=== PATIENT | male | born 1955 | race Caucasian/White ===

== ENCOUNTER 2018-02-28 21:14 | Emergency (ER) | payer MEDICAID, SELFPAY ==
[2018-02-28 21:15] VITALS: BP 161/111; PULSE 128; RESP 14; TEMP 37.4; O2SAT 91; BMI 30.7
[2018-02-28 21:57] VITALS: PULSE 78; RESP 18; O2SAT 98
--- NOTE | 2018-02-28 22:52 | ED.VIS.GEN ---
History of Present Illness Chief Complaint: Upper Extremity Injury Informant: Patient Onset: Days - 3 Context: Gradual Onset Timing: Continuous Current Severity: Moderate Maximum Severity: Moderate Narrative: Patient states he had a hangnail on his left middle finger that he picked off, and this initially caused some bleeding and then started getting red and painful and swollen, eventually turned into a swollen area that he squeezed and drained some pus but it continues to be red, swollen, painful. Right-hand dominant. Past Medical History - Allergies and Home Meds Allergies/Adverse Reactions: Allergies No Known Allergies Allergy (Verified 02/28/18 21:58) Primary Care Physician: Salvatore Doctor,Out of [NON-STAFF] - Past Medical History: None Lives: Spouse/ Significant Other Smoking Status: Never smoker Review of Systems General: Denies: Chills, Fever Musculoskeletal: Reports: Extremity Pain - left long finger Skin: Reports: Wounds Physical Exam Vital Signs/Narrative: Vital Signs Temp Pulse Resp BP Pulse Ox 02/28/18 21:57 78 18 98 02/28/18 21:15 99.3 F H 128 H 14 161/111 H 91 Inital Vital Signs reviewed: Yes General: Well nourished, Well developed Head: Normocephalic, Atraumatic Extremities: Tenderness - Erythematous, warm, swollen, tender left long finger around the base of nail fold both ulnarly and radially. Appears fairly symmetric. Small area where he appears to have peeled off a piece of skin at the ulnar aspect, where the patient states the pus came from and the infection started. Limited flexion of the DIP joint secondary to pain and swelling. No significant tenderness or distention of the finger pad at the volar aspect. Skin: - - Erythema left long finger at nail fold. Neurological: Alert, Oriented x3, Cranial nerves II-XII grossly intact, Normal Strength, Normal Sensation, Normal Gait Psychological: Normal affect Diagnostic/Tx/Re-eval - Medical Decision Making Although patient had a low-grade temperature and was tachycardic in triage, he is very well-appearing and does not appear septic at all. He appears to have a very localized paronychia that is progressed to the radial aspect of the fingernail. He was amenable to incision and drainage since there was no spontaneous discharge able to be expressed. Although there is an abscess cavity, and I opened it on both sides, no purulent discharge was able to be expressed. Only bleeding. I soaked him in chlorhexidine and sterile saline for 10 minutes, followed by wrapping in bacitracin and a bulky dressing, and he is placed on Duricef, advised to use warm soapy soaks at least twice a day for the next couple days, following up or returning if worsening or not improving. He is comfortable with that plan. Procedures Procedure(s): Digital block left long finger --total of 9 cc plain 1% lidocaine used with dorsal approach after isopropyl alcohol prep. Good anesthesia obtained. I&D paronychia left long finger --prepped with Betadine and incised with the tip of a #11 blade at both the ulnar, followed by the radial aspect. Abscess cavity along the dorsum of the finger posterior/proximal to the nail fold probed, but no purulent discharge. ED Disposition - Plan for ED Patient: Disposition: Home or Assisted Living Chief Complaint: Upper Extremity Injury Diagnosis: Paronychia of finger of left hand Instructions: ED Fingernail Infec Prescriptions: Cefadroxil [Duricef] 500 mg PO BID #14 cap Referrals: [facility] Doctor,Out of [NON-STAFF] - 3-5 Days if not improving
[2018-02-28 23:43] VITALS: BP 141/78; PULSE 67; RESP 18; O2SAT 98
[2018-02-28] MEDS: Cefadroxil 500 MG CAPSULE PO (23:54)
== END 2018-02-28 23:56 | disposition home or self-care (01) ==
PROVIDERS: Emergency Provider Emergency Medicine
DX: L03.012 Cellulitis of left finger (principal)
CPT/HCPCS: 10060; 99283

== ENCOUNTER → 2022-07-12 | Outpatient (CLI) | payer MEDICARE, SELFPAY ==
[2022-07-12 09:17] LABS: Hematocrit 44.6 % (40-54); Hemoglobin 15.6 g/dL (13.0-16.5); Mean Corpuscular Hgb 31.5 pg (27.0-32.0); Mean Corpuscular Volume 89.9 fL (80-94); Mean Platelet Vol. 10.4 fl (6.2-12.0); Platelet Count 241 K/mm3 (150-450); RBC Distribution Width CV 11.8 % (11.6-14.6); RBC Distribution Width SD 38.1 fl (35.1-43.9); Red Blood Count 4.96 M/mm3 (4.6-6.2); White Blood Count 9.5 K/mm3 (4.4-11.0)
[2022-07-12 09:43] LABS: Hemoglobin A1c 11.7 % (3.8-5.6)
[2022-07-12 09:51] LABS: ALB/GLOB Ratio 0.8 RATIO (0.9-2.4); AST(SGOT) 37 U/L (15-37); Alanine Aminotransfer ALT/SGPT 35 U/L (16-61); Albumin, Serum 3.3 g/dL (3.2-5.0); Alkaline Phosphatase 109 U/L (45-117); Anion Gap 9 (5-15); BUN 16 mg/dL (7-18); BUN/Creat Ratio 15.4 RATIO (10-20); Calcium,Total 8.6 mg/dL (8.5-10.1); Chloride 98 mmol/L (98-107); Cholesterol 178 mg/dL (200); Creatinine, Serum 1.04 mg/dL (0.70-1.30); EST Glomerular Filtration Rate 76 mL/min (>60); Est Glom Filt Rate - Afr Amer 92 mL/min (>60); Glucose 384 mg/dL (74-106); High Density Lipoprotein 39 mg/dL; PSA,Total - Annual Screen 6.34 ng/mL (0.00-4.00); Potassium 4.1 mmol/L (3.5-5.1); Protein, Total 7.3 g/dL (6.4-8.2); Sodium Level 133 mmol/L (136-145); Triglycerides 205 mg/dL; Very Low Density Lipoprotein 41 mg/dL (5-40)
== END | disposition home or self-care (01) ==
LOC: LAB 08:59
DX: Z00.01 Encounter for general adult medical examination with abnormal findings (principal); Z12.5 Encounter for screening for malignant neoplasm of prostate; Z83.3 Family history of diabetes mellitus
CPT/HCPCS: 36415; 80053; 80061; 83036; 84153; 85027; G0103

== ENCOUNTER 2022-08-04 09:18 | Outpatient (RCR) | payer MEDICARE, SELFPAY | END 2022-08-09 23:59 | LOC: DC 09:18 | PROVIDERS: Referring Provider Nurse Practitioner Family; Visit Provider Nurse Practitioner Family | DX: E11.9 Type 2 diabetes mellitus without complications (principal) | CPT/HCPCS: 97802 ==

== ENCOUNTER → 2022-08-09 | Outpatient (CLI) | payer MEDICARE, SELFPAY ==
--- NOTE | 2022-08-09 11:10 | US_ITS ---
STUDY: SUPERFICIAL ULTRASOUND - RIGHT THIGH. REASON FOR EXAM: Male, 66 years old. Mass of right thigh TECHNIQUE: A superficial ultrasound was performed with real-time and static marroquin-scale imaging. COMPARISON: None. FINDINGS: The palpable abnormality corresponds to 9.4 cm x 6.7 cm x 4.9 cm isoechoic mass. Biopsy recommended. US/Ext Non Vasc Limited/Soft Tiss IMPRESSION: 9.4 cm x 6.7 cm x 4.9 cm hypoechoic mass corresponding to the palpable abnormality. Biopsy is recommended. Electronically Signed: Martin Bello MD at 10:59 EST ,
== END | disposition home or self-care (01) ==
LOC: US 11:08
PROVIDERS: Referring Provider Surgery; Visit Provider Surgery
DX: R22.41 Localized swelling, mass and lump, right lower limb (principal)
CPT/HCPCS: 76882

== ENCOUNTER 2022-09-06 09:26 | Outpatient (RCR) | payer MEDICARE, SELFPAY | END 2022-09-06 23:59 | LOC: DC 09:26 | PROVIDERS: Referring Provider Nurse Practitioner Family; Visit Provider Nurse Practitioner Family | DX: E11.9 Type 2 diabetes mellitus without complications (principal) | CPT/HCPCS: 97803 ==

== ENCOUNTER → 2022-09-15 | Outpatient (CLI) | payer MEDICARE, SELFPAY ==
--- NOTE | 2022-09-15 | PROSBIL_PTH ---
PATIENT: LOVE ROBLES LOC: [facility] U#:[id number] AGE/SX: 66/M ROOM: RE09/15/[address]: Dr. Good Ness MD : 1955 BED: DIS: 09/15/2022 SPEC #: [id number] RECD: 09/15/22 16:56 STATUS: KIRBY FERNANDEZ #: [id number] BYRON: 09/15/22 00:[address]: Good Ness DEPT: SURGICAL PATHOLOGY RECD BY: Erasto Loya ENTERED: 09/16/22 09:41 SP TYPE: PROST BX OT DR: [facility]da [facility] Tissues: A - PROSTATE RIGHT B - PROSTATE RIGHT C - PROSTATE RIGHT D - PROSTATE LEFT E - PROSTATE LEFT F - PROSTATE LEFT Procedures: PROSTATE BX HEADER OPERATION: Prostate biopsy PRE-OP DIAGNOSIS: Elevated PSA TISSUE SUBMITTED: A - Right apex, B - Right mid, C - Right base, D - Left apex, E - Left mid, F - Left base MICROSCOPIC DIAGNOSIS A. Right prostate, apex, core biopsy: Prostatic tissue, negative for malignancy. Focal mild chronic inflammation. B. Right prostate, mid, core biopsy: Prostatic tissue, negative for malignancy. C. Right prostate, base, core biopsy: Prostatic tissue, negative for malignancy. D. Left prostate, apex, core biopsy: Prostatic adenocarcinoma. Bertram grade: 3+3=6 Number of cores involved: 2/2 Proportion of tissue involved: 40% Perineural invasion: Not identified. Greatest tumor length: 0.4 cm E. Left prostate, mid, core biopsy: Focal high-grade prostatic intraepithelial neoplasia (HGPIN). F. Left prostate, base, core biopsy: Prostatic tissue, negative for malignancy. SJ:mary 09/19/2022 MICROSCOPIC DESCRIPTION Slides are reviewed. GROSS DESCRIPTION A - Received is one container designated prostate, right apex. The specimen consists of two elongated fragments of light dale-white soft tissue measuring 1.4 and 1.7 cm in length and 0.1 cm in diameter. The specimen is totally submitted in one cassette. B - Received is one container designated prostate, right mid. The specimen consists of two elongated fragments of light dale-white soft tissue measuring 0.5 and 1.7 cm in length and 0.1 cm in diameter. The specimen is totally submitted in one cassette. C - Received is one container designated prostate, right base. The specimen consists of two elongated fragments of light dale-white soft tissue each measuring 1.5 cm in length and 0.1 cm in diameter. The specimen is totally submitted in one cassette. D - Received is one container designated prostate, left apex. The specimen consists of two elongated fragments of light dale-white soft tissue measuring 1.4 and 1.6 cm in length and 0.1 cm in diameter. The specimen is totally submitted in one cassette. E - Received is one container designated prostate, left mid. The specimen consists of two elongated fragments of light dale-white soft tissue measuring 1.4 and 2.1 cm in length and 0.1 cm in diameter. The specimen is totally submitted in one cassette. F - Received is one container designated prostate, left base. The specimen consists of two elongated fragments of light dale-white soft tissue each measuring 1.2 cm in length and 0.1 cm in diameter. The specimen is totally submitted in one cassette. / SJ:rg 09/16/2022 TC:0 CPT: G0146
== END | disposition home or self-care (01) ==
PROVIDERS: Visit Provider Urology
DX: R97.20 Elevated prostate specific antigen [PSA] (principal)
CPT/HCPCS: 88305; G0416

== ENCOUNTER → 2023-01-23 | Outpatient (CLI) | payer MEDICARE, SELFPAY ==
[2023-01-23 11:24] LABS: PSA,Total- Diagnostic 7.81 ng/mL (0.0-4.0)
== END | disposition home or self-care (01) ==
LOC: LAB 10:19
PROVIDERS: Referring Provider Urology; Visit Provider Urology
DX: C61 Malignant neoplasm of prostate (principal)
CPT/HCPCS: 36415; 84153

== ENCOUNTER 2023-02-06 17:30 | Outpatient (RCR) | payer SELFPAY | END 2023-02-06 23:59 | LOC: NS 17:30 | PROVIDERS: Referring Provider Nurse Practitioner Family; Visit Provider Nurse Practitioner Family | DX: Z71.3 Dietary counseling and surveillance (principal); E11.9 Type 2 diabetes mellitus without complications ==

== ENCOUNTER → 2023-03-14 | Outpatient (CLI) | payer MEDICARE, SELFPAY | END | disposition home or self-care (01) | PROVIDERS: Referring Provider Podiatrist Foot & Ankle Surgery; Visit Provider Podiatrist Foot & Ankle Surgery | DX: L02.611 Cutaneous abscess of right foot (principal) | CPT/HCPCS: 87070; 87075; 87077; 87186; 87205 ==

== ENCOUNTER 2023-04-04 12:47 | Day surgery (SDC) | payer MEDICARE, SELFPAY ==
[2023-04-04 13:01] VITALS: BP 126/88; PULSE 70; RESP 16; TEMP 36.1; O2SAT 99; BMI 26.5
[2023-04-04] MEDS: Lactated Ringers 1,000 ML 15 ML IV (13:05)
[2023-04-04 13:25] LABS: Bedside Glucose 150 mg/dL (74-106)
--- NOTE | 2023-04-04 14:21 | PCM.HP.STD ---
[facility] - General General Date of Admission: 04/04/23 Date of Service: 04/04/23 Chief Complaint: Screening colonoscopy HPI Narrative LOVE ROBLES, is a 67 M who presents today for screening colonoscopy. He has past medical history of hypertension and. Both with prescription controlled on medicine. He is not have any abdominal pain. He denies any cramping. Denies any chest pain or shortness of breath. This is his first colonoscopy. [facility] Medical History (Updated 03/31/23 @ 10:58 by Kaitlin Lopez) Diabetes mellitus Dietary restriction Hypertension Mass of right thigh Non-smoker Prostate disease Shortness of breath on exertion Home Medications cinnamon bark 500 mg capsule (Cinnamon) 1,000 mg PO DAILY 12/20/22 [History Last Taken Unknown] lisinopril 10 mg tablet 10 mg PO DAILY 12/20/22 [History Last Taken Unknown] metformin 500 mg tablet 500 mg PO BID 12/20/22 [History Last Taken Unknown] multivitamin 1 tab PO DAILY 12/20/22 [History Last Taken Unknown] omega 4-dvv-fbi-fish oil 300 mg-1,000 mg capsule (Fish Oil) 1 cap PO DAILY 12/20/22 [History Last Taken 03/31/23] red beet root 250 mg-sour busby extract 0.5 mg chewable tablet 1 tab PO DAILY 12/20/22 [History Last Taken 03/31/23] Allergy/AdvReac Type Severity Reaction Status Date / Time No Known Allergies Allergy Verified 04/04/23 13:00 Family History Mother Diabetes Father Diabetes Social History (Updated 12/20/22 @ 09:48 by Zuleika Menjivar) household members: spouse current occupational status: retired Smoking Status: Never smoker alcohol intake: never substance use type: does not use ROS Review of Systems ROS Unobtainable: other Constitutional Constitutional: Denies fatigue, fever(s), poor appetite, weight gain or weight loss ENT HEENT: Denies mouth lesions Cardiovascular Cardiovascular: Denies abdominal bloating, abdominal edema or abdominal pain Respiratory/Chest Respiratory/Chest: Denies change in mental status, change in phlegm color, chest congestion or chest tightness Gastrointestinal Gastrointestinal: Denies belching, bloating, change in bowel habits, change in stool character, chewing difficulty, coffee ground emesis, constipation, cramping, diarrhea, dyspepsia, dysphagia, early satiety, excessive flatus, fecal incontinence, heartburn, hematemesis, hematochezia, hemorrhoids, loose stools, melena, nausea, odynophagia, rectal bleeding, tenesmus, vomiting or weight changes Genitourinary Genitourinary: Denies abdominal discomfort, burning urination or itching Musculoskeletal Musculoskeletal: Reports as per HPI; Denies muscle weakness or myalgias Integumentary Integumentary: Denies jaundice Neurologic Neurologic: Denies lack of coordination or weakness Psychiatric Psychiatric: Denies confusion, depression, memory loss, mood swings, paranoia or suicidal ideation Endocrine Endocrinology: Denies systems reviewed and no addt'l complaints, except as documented Hematologic/Lymphatic Hematologic/Lymphatic: Denies anemia, easy bleeding, easy bruising or lymphadenopathy Allergic/Immunologic Allergic/Immunologic: Denies systems reviewed and no addt'l complaints, except as documented Vital Signs Vital Signs Vital Signs: 04/04/23 13:01 04/04/23 13:01 Temperature 96.9 F L Temperature Source Temporal Pulse Rate 70 Respiratory Rate 16 Respiratory Pattern Normal Blood Pressure 126/88 H Blood Pressure Mean 100 Blood Pressure Source Monitor Blood Pressure Position Semi-Fowlers Blood Pressure Location Left Arm Pulse Ox 99 Oxygen Delivery Method Room Air Weight Weight: 185 lb 3.013 oz Body Mass Index (BMI) 26.5 Physical Exam Const alert General Appearance: cooperative Orientation / Consciousness: oriented to person HEENT hearing grossly normal bilaterally Head and Scalp: normal to inspection Face and Sinus: face symmetric Nose: external nose normal Mouth: oral and palatal mucosa normal Eyes conjunctivae normal General Eye: normal appearance of both eyes Neck full ROM General: normal visual inspection Lymph Lymphatic: no lymphadenopathy noted Chest inspection of chest normal and palpation of chest normal Chest: symmetrical chest wall rise Resp normal respiratory effort Effort and Inspection: able to speak in complete sentences Cardio regular rate GI non-distended Percussion: normal to percussion Rectal Exam: deferred Neuro Speech: speech normal Gait (Neuro): normal gait Results Lab / Micro Data Labs: Laboratory Results - last 24 hr 04/04/23 13:02: POC Glucose 150 H Assessment & Plan Assessment/Plan (1) Encounter for screening for malignant neoplasm of colon: PLAN: He was explained alternatives, risk, benefits including not withstanding blood, infection, sepsis, perforation, need for emergent surgery . He will have an ASA of 2.
[2023-04-04 14:49] VITALS: BP 126/88; BP 99/66; PULSE 65; RESP 16; TEMP 36.2; O2SAT 99
--- NOTE | 2023-04-04 14:51 | OP.COLON_ITS ---
Patient Name: Lee Zarate Procedure Date: 04/04/2023 2:20 PM Date of : 1955 Age: 67 Procedure: Colonoscopy Indications: Screening for colorectal malignant neoplasm Providers: Marbin Vazquez DO Referring MD: Jayda Reyes [facility] Medicines: Monitored Anesthesia Care Patient Profile: This is a 67 year old male. Refer to note in patient chart for documentation of history and physical. Last Colonoscopy: none. The patient's first colonoscopy is today. Complications: No immediate complications. Procedure: Pre-Anesthesia Assessment: - Prior to the procedure, a History and Physical was performed, and patient medications and allergies were reviewed. The patient is competent. The risks and benefits of the procedure and the sedation options and risks were discussed with the patient. All questions were answered and informed consent was obtained. Patient identification and proposed procedure were verified by the physician in the pre-procedure area. Mental Status Examination: alert and oriented. Airway Examination: normal oropharyngeal airway and neck mobility. Prophylactic Antibiotics: The patient does not require prophylactic antibiotics. Prior Anticoagulants: The patient has taken no anticoagulant or antiplatelet agents. ASA Grade Assessment: II - A patient with mild systemic disease. After reviewing the risks and benefits, the patient was deemed in satisfactory condition to undergo the procedure. The anesthesia plan was to use minimal sedation / analgesia (anxiolysis). Immediately prior to administration of medications, the patient was re-assessed for adequacy to receive sedatives. The heart rate, respiratory rate, oxygen saturations, blood pressure, adequacy of pulmonary ventilation, and response to care were monitored throughout the procedure. The physical status of the patient was re-assessed after the procedure. After I obtained informed consent, the scope was passed under direct vision. Throughout the procedure, the patient's blood pressure, pulse, and oxygen saturations were monitored continuously. The Colonoscope was introduced through the anus and advanced to the cecum, identified by appendiceal orifice and ileocecal valve. The colonoscopy was performed without difficulty. The patient tolerated the procedure well. The quality of the bowel preparation was fair. The ileocecal valve, appendiceal orifice, and rectum were photographed. Scope In: 2:27:21 PM Scope Withdrawal Time 0 hours 9 minutes 52 seconds Scope Out: 2:42:46 PM Total Procedure Duration Time 0 hours 15 minutes 25 seconds Findings: The perianal and digital rectal examinations were normal. A few small-mouthed diverticula were found in the recto-sigmoid colon and sigmoid colon. Semi-liquid stool was found in the sigmoid colon, in the transverse colon and in the cecum. Lavage of the area was performed using greater than 500 mL of sterile water, resulting in clearance with adequate visualization. Impression: - Preparation of the colon was fair. - Diverticulosis in the recto-sigmoid colon and in the sigmoid colon. - Stool in the sigmoid colon, in the transverse colon and in the cecum. - No specimens collected. Recommendation: - Discharge patient to home. - Resume previous diet. - Continue present medications. - Repeat colonoscopy in 10 years for screening purposes. Procedure Code(s): --- Professional --- G0121, Colorectal cancer screening; colonoscopy on individual not meeting criteria for high risk CPT copyright 2021 [employer]. All rights reserved. The codes documented in this report are preliminary and upon validation architect review may be revised to meet current compliance requirements. Marbin Vazquez DO 04/04/2023 2:51:01 PM This report has been signed electronically. Number of Addenda: 0 Note Initiated On: 04/04/2023 2:20 PM
--- NOTE | 2023-04-04 14:51 | OP.CCLET_ITS ---
04/04/2023 Jayda Reyes [facility] Re : Colonoscopy procedure for Lee Vallejo [facility] This procedure was performed on Tuesday, April 04, 2023. My impressions and recommendations are as follows: Impressions : - Preparation of the colon was fair. - Diverticulosis in the recto-sigmoid colon and in the sigmoid colon. - Stool in the sigmoid colon, in the transverse colon and in the cecum. - No specimens collected. Recommendations : - Discharge patient to home. - Resume previous diet. - Continue present medications. - Repeat colonoscopy in 10 years for screening purposes. My findings are described in the full procedure note, which is enclosed. If I can be of further assistance, please feel free to contact me at . Sincerely, Marbin Vazquez, 04/04/2023 2:51:01 PM This report has been signed electronically.
[2023-04-04 14:53] VITALS: BP 104/71; BP 126/88; PULSE 63; RESP 14; O2SAT 97
[2023-04-04 14:59] VITALS: BP 115/88; BP 126/88; PULSE 58; RESP 16; O2SAT 100
[2023-04-04 15:17] VITALS: BP 107/83; BP 126/88; PULSE 57; RESP 16; TEMP 36.8; O2SAT 99
[2023-04-04 15:45] VITALS: BP 126/88
== END 2023-04-04 15:50 | disposition home or self-care (01) ==
LOC: EN 12:48 → AC 12:49
PROVIDERS: Visit Provider Internal Medicine Gastroenterology
PROC: 0DJD8ZZ Inspection of Lower Intestinal Tract, Via Natural or Artificial Opening Endoscopic (ICD-10-PCS; CPT 45378; principal; 2023-04-04 13:55)
DX: Z12.11 Encounter for screening for malignant neoplasm of colon (principal); E11.9 Type 2 diabetes mellitus without complications; K57.30 Diverticulosis of large intestine without perforation or abscess without bleeding; I10 Essential (primary) hypertension; Z79.899 Other long term (current) drug therapy; Z79.84 Long term (current) use of oral hypoglycemic drugs
CPT/HCPCS: G0121; 82962; J7120

== ENCOUNTER → 2023-05-31 | Outpatient (CLI) | payer MEDICARE, SELFPAY ==
[2023-05-31 13:10] LABS: PSA,Total- Diagnostic 8.84 ng/mL (0.0-4.0)
== END | disposition home or self-care (01) ==
LOC: LAB 10:30
PROVIDERS: Referring Provider Nurse Practitioner; Visit Provider Nurse Practitioner
DX: C61 Malignant neoplasm of prostate (principal)
CPT/HCPCS: 36415; 84153

== ENCOUNTER → 2023-07-17 | Outpatient (CLI) | payer MEDICARE, SELFPAY ==
--- NOTE | 2023-07-17 | PROSBIL_PTH ---
PATHOLOGY RESULTS PATIENT: LOVE ROBLES LOC: [facility] U#:[id number] AGE/SX: 67/M ROOM: RE07/17/[address]: Dr. Good Ness MD : 1955 BED: DIS: 07/17/2023 SPEC #: [id number] RECD: 07/18/23 08:09 STATUS: KIRBY JIM #: [id number] BYRON: 07/17/23 00:[address]: Good Ness DEPT: SURGICAL PATHOLOGY RECD BY: Ana Laura Oconnor ENTERED: 07/18/23 08:10 SP TYPE: PROST BX ADRIANA DR: Jayda [facility] Tissues: PROSTATE RIGHT PROSTATE RIGHT PROSTATE RIGHT PROSTATE LEFT PROSTATE LEFT PROSTATE LEFT Procedures: PROSTATE BX HEADER OPERATION: Prostate biopsy PRE-OP DIAGNOSIS: Elevated PSA TISSUE SUBMITTED: A - Right apex, B - Right mid, C - Right base, D - Left apex, E - Left mid, F - Left base MICROSCOPIC DIAGNOSIS A. Right prostate, apex, core biopsy: Focal atypical small acinar proliferation (FABIAN). See comment. B. Right prostate, mid, core biopsy: Prostatic tissue, negative for malignancy. C. Right prostate, base, core biopsy: Prostatic tissue, negative for malignancy. D. Left prostate, apex, core biopsy: Prostatic adenocarcinoma. Steger grade: 3+3=6 Number of cores involved: 1/2 Proportion of tissue involved: 25-30% Perineural invasion: Not identified. Greatest tumor length: 0.5 cm E. Left prostate, mid, core biopsy: Prostatic tissue, negative for malignancy. Focal mild chronic inflammation. F. Left prostate, base, core biopsy: Prostatic tissue, negative for malignancy. Focal mild chronic inflammation. SJ:mary 07/19/2023 COMMENT A. Immunohistochemistry ([id number]) supports the above diagnosis. Please make reference to previous specimen ([id number]), left prostate, apex, core biopsy with diagnosis of prostatic adenocarcinoma and left prostate, mid, core biopsy with diagnosis of focal high-grade prostatic intraepithelial neoplasia. Case has been reviewed in consultation with Dr. Shafer who concurs with the above diagnosis. IDC:AM MICROSCOPIC DESCRIPTION Slides are reviewed. GROSS DESCRIPTION A - Received is one container designated prostate, right apex. The specimen consists of two elongated fragments of light dale-white soft tissue measuring 1.5 and 2.0 cm in length and 0.1 cm in diameter. The specimen is totally submitted in one cassette. B - Received is one container designated prostate, right mid. The specimen consists of two elongated fragments of light dale-white soft tissue each measuring 1.5 cm in length and 0.1 cm in diameter. The specimen is totally submitted in one cassette. C - Received is one container designated prostate, right base. The specimen consists of two elongated fragments of light dale-white soft tissue each measuring 0.6 cm in length and 0.1 cm in diameter. The specimen is totally submitted in one cassette. D - Received is one container designated prostate, left apex. The specimen consists of two elongated fragments of light dale-white soft tissue measuring 0.4 and 1.4 cm in length and 0.1 cm in diameter. The specimen is totally submitted in one cassette. E - Received is one container designated prostate, left mid. The specimen consists of two elongated fragments of light dale-white soft tissue each measuring 1.2 cm in length and 0.1 cm in diameter. The specimen is totally submitted in one cassette. F - Received is one container designated prostate, left base. The specimen consists of two elongated fragments of light dale-white soft tissue measuring 0.5 and 1.0 cm in length and 0.1 cm in diameter. The specimen is totally submitted in one cassette. / SHONNA:mary 07/18/2023 TC:0 CPT: G0146
--- NOTE | 2023-07-17 | IMM_PTH ---
PATHOLOGY RESULTS PATIENT: LOVE ROBLES LOC: [facility] U#:[id number] AGE/SX: 67/M ROOM: RE07/17/[address]: Dr. Good Ness MD : 1955 BED: DIS: 07/17/2023 SPEC #: [id number] RECD: 07/19/23 13:40 STATUS: SOUSabine REQ #: [id number] BYRON: 07/17/23 00:[address]: Good Ness DEPT: IMMUNOHISTOCHEMISTRY RECD BY: Meryl Villa ENTERED: 07/19/23 13:41 SP TYPE: IMMUNO OTHR DR: Jayda [facility] Tissues: PROSTATE RIGHT Procedures: P40 (add) 34BE12 (initial) PHYSICIAN & INSTITUTION [place] [id number] SPECIMEN INFORMATION: Tissue Source: A - Right prostate, apex Clinical Info: Elevated PSA Specimen Number: [id number] CPT code: 21897, 19606 METHODOLOGY: Deparaffinized sections of prefer/formalin-fixed tissue or PAP/DQ stained slides are incubated with monoclonal/polyclonal antibodies/oligonucleotide probes. Localization is made via biotin free immunoperoxidase method. Appropriate controls are performed and reacted as expected. Results on target cell population are indicated in the following table: RESULTS: ANTIBODY / CLONE RESULT Block A P40 (BC28) negative 34BE12 (34BE12) noncontributory * *?Area of interest is not present on the slide. These tests were developed and their performance characteristics determined by [facility]. They may not have been cleared or approved by the [place]. Food and Drug Administration. The FDA has determined that such clearance or approval is not necessary. The above immunohistochemical/dualISH markers are ordered and reviewed by the Pathologist. INTERPRETATION: A. Right prostate, apex, core biopsy: Atypical small acinar proliferation (FABIAN). SJ:mary 07/20/2023 Case has been reviewed in consultation with Dr. Shafer who concurs with the above diagnosis. IDC:AM
--- OUTSIDE RECORDS SUMMARY | 2023-07-17 17:20 | XMS RPT_ITS | CCD ---
Author Name Unknown Address [address] [place] [address] Organization [facility] Care Team Providers Care Rod Hanger Name Role Phone Unavailable Primary Care Provider Unavailcarlos Lan MD, Zohreh Hanson Unavailable Benji Soni NP Primary Care Provider [phone] ZOHREH LAN Referring Unavailable ZOHREH LAN Attending ZOHREH Cooley Admitting ZOHREH Cooley Attending ZOHREH Cooley Referring Unavailable BENJI SONI Primary Care Unavailable ZOHREH LAN Attending AMY Hernández Attending Unavailable BENJI SONI Primary Care Unavailable Medications Current Medications Medication Drug Class(es) Dates Sig (Normalized) Sig (Original) iv contrast (will be provided with radiology test) (1 source) Start: 08-25-2022 End: 08-26-2022 iv contrast (will be provided with radiology test) MRI upper leg RT Inject, intravenously, once for 1 dose. No IV access, insert saline lock prior to the beginning of sedation, infusion, injection of imaging exam. Discontinue saline lock post exam. If Pt. has a central line or IVAD, may access for administration according to line specific nursing protocol. Once exam is complete flush line and de-access according to line specific nursing protocol in the MR contrast administration guidelines link 1 Each 0 08/25/2022 08/26/2022 Active Completed/Discontinued Medications Medication Drug Class(es) Dates Sig (Normalized) Sig (Original) Cinnamon Preparation (4 sources) Non-Standardized Food Allergenic Extract End: 10-12-2022 CINNAMON Problems Problem Classification Problem Date Documented Da te Episodic/Chronic Diabetes mellitus without complication (6 sources) Diabetes mellitus; Translations: [Type 2 diabetes mellitus without complications] Onset: 08-16-2022 08-16-2022 Chronic Essential hypertension (7 sources) Hypertensive disorder; Translations: [Essential (primary) hypertension] Onset: 08-16-2022 Chronic Other aftercare (1 source) Surgical follow-up; Translations: [Encounter for follow-up examination after completed treatment for conditions other than malignant neoplasm] Episodic Other skin disorders (11 sources) Mass of lower limb; Translations: [Localized swelling, mass and lump, right lower limb] Onset: 08-16-2022 Episodic Other skin disorders (2 sources) Localized swelling, mass and lump, right lower limb; Translations: [Mass of right thigh] Onset: 08-16-2022 Episodic Unclassified (1 source) Post Op Onset: 10-27-2022 Results Test Name Value Interpretation Reference Range Facil ity Vital Signs Date Time Vital Sign Value Performing Clinician Faci lity 08-25-2022 08:52-0500 Body height 177.8 cm Zohreh Lan MD Work Phone: [facility] 08-25-2022 08:52-0500 Body weight 88.45 kg Zohreh Lan MD Work Phone: [facility] 08-25-2022 08:52-0500 Diastolic blood pressure 78 mm[Hg] Zohreh Lan MD Work Phone: [facility] 08-25-2022 08:52-0500 Heart rate 78 /min Zohreh Lan MD Work Phone: [facility] 08-25-2022 08:52-0500 SaO2% (BldA) [Mass fraction] 98 % Zohreh Lan MD Work Phone: [facility] 08-25-2022 08:52-0500 Systolic blood pressure 122 mm[Hg] Zohreh Lan MD Work Phone: [facility] Encounters Encounter Date Encounter Type Care Provider Facility Start: 10-27-2022 End: 10-27-2022 ambulatory AMY NAZARIO Facility:[facility] Start: 10-27-2022 End: 10-27-2022 Patient encounter procedure Amy Nazario PA-C Work Phone[facility] Procedures Date Procedure Procedure Detail Performing Clinician Start: 09-22-2022 Mri lower extrem oth /thn jt w/o & w/contr matr Zohreh Lan MD Work Phone: Plan of Treatment Date Care Activity Detail Author Start: 08-25-2023 BP CONTROLLED (<130/80) BP CONTROLLED (<130/80) [facility] Start: 04-06-2023 Hemoglobin A1c/Hemoglobin.total in Blood HBA1C [facility] Start: 03-10-2023 Influenza vaccination [facility] Start: 07-10-2022 ADVANCE DIRECTIVE DISCUSSION ADVANCE DIRECTIVE DISCUSSION [facility] Start: 07-10-2022 DEPRESSION ASSESSMENT DEPRESSION ASSESSMENT [facility] Start: 03-10-2022 Influenza vaccination INFLUENZA (#1) [facility] Start: 09-15-2020 PNEUMOCOCCAL: 65+ (1 - PCV) PNEUMOCOCCAL: 65+ (1 - PCV) [facility] Start: 2015 Hepatitis B Vaccine (1 of 3 - Risk 3-dose series) Hepatitis B Vaccine (1 of 3 - Risk 3-dose series) [facility] Start: 2015 RSV Vaccine (1 - 1-dose 60+ series) RSV Vaccine (1 - 1-dose 60+ series) [facility] Start: 09-15-2010 PROSTATE CANCER SCREENING DISCUSSION PROSTATE CANCER SCREENING DISCUSSION [facility] Start: 09-15-2005 SHINGRIX VACCINE (1 of 2) SHINGRIX VACCINE (1 of 2) [facility] Start: 09-15-2000 COLOGUARD (FIT-DNA) COLOGUARD (FIT-DNA) [facility] Start: 09-15-2000 Colonoscopy COLONOSCOPY [facility] Start: 09-15-2000 COLORECTAL CANCER SCREENING COLORECTAL CANCER SCREENING [facility] Start: 09-15-[address] COLONOGRAPHY [facility] Start: 09-15-2000 DIABETES SCREEN DIABETES SCREEN [facility] Start: 09-15-2000 FECAL OCCULT BLOOD FECAL OCCULT BLOOD [facility] Start: 09-15-2000 SIGMOIDOSCOPY SIGMOIDOSCOPY [facility] Start: 09-15-1990 LIPID SCREEN LIPID SCREEN [facility] Start: 09-15-1974 Urine microalbumin profile [facility] Start: 09-15-1973 ANNUAL PCP TEAM CHRONIC DISEASE VISIT ANNUAL PCP TEAM CHRONIC DISEASE VISIT [facility] Start: 09-15-1973 Hepatitis B surface antibody level LDL CHOLESTEROL [facility] Start: 09-15-1973 HEPATITIS C SCREENING HEPATITIS C SCREENING [facility] Start: 09-15-1965 3 comp foot exam completed DIABETIC FOOT EXAM [facility] Start: 09-15-1965 Hepatitis B screening URINE ALBUMIN:CREATININE RATIO [facility] Start: 09-15-1965 Hepatitis C antibody, confirmatory test DILATED RETINAL EXAM [facility] Start: 09-15-1961 Pneumococcal Vaccine: 65+ (1 - PCV) Pneumococcal Vaccine: 65+ (1 - PCV) [facility] Start: 09-15-1961 PNEUMOCOCCAL: 65+ (1 - PCV) PNEUMOCOCCAL: 65+ (1 - PCV) [facility] Start: 09-15-1960 Hemoglobin A1c/Hemoglobin.total in Blood HBA1C [facility] Start: 03-18-1956 COVID-19 VACCINE (#1) COVID-19 VACCINE (#1) [facility] End: 09-24-2023 Mri lower extrem oth/thn jt w/o & w/contr matr MRI UPPER LEG WO/W IVCON RT Radiology Routine Mass of right thigh 1 Occurrences starting 08/25/2022 until 09/24/[address] [facility] Work Phone: Payers Date Payer Category Payer Medicare [employer] [place] [place] [id number] 2022-Present [phone] [address] [place] [address] [facility] [id number] 2022 Medicare [id number] Social History Date Type Detail Facility Start: 08-16-2022 Tobacco smoking stat us TNIS Never smoked tobacco [facility] Start: 08-16-2022 Tobacco use and exposure Smoke less tobacco non-user [facility] Start: 08-16-2022 End: 08-25-2022 Alcohol intake Lifetime non-drinker (finding) [facility] Start: 1955 Sex Assigned At Not on file [facility] Start: 08-25-2022 History of Social function [facility] Start: 08-25-2022 Tobacco use panel [facility] National Score (1-10 0), lower number is lower risk 70 [facility] Medical Equipment Procedure Code Equipment Code Equipment Origin al Text Equipment Identifier Dates Start: 07-13-2022 Clinical Notes 08-25-2022 to 10-27-2022 Amy Nazario PA-C - 10/27/2022 11:56 AM Cyrus Lan MD - 09/26/2022 1:24 PM Trina Epperson RT(R) - 09/22/2022 9:20 AM Cyrus Lan MD - 08/25/2022 9:03 AM EST Note Date & Type Note Facility 10-27-2022 Note HNO ID: [id number] Author: Amy Nazario PA-C Service: ? Author Type: Physician Rip/Mould Operator Type: Progress Notes Filed: 10/27/2022 12:20 PM Note Text: Amy Nazario PA-C Hepatobiliary Surgery [address] [place], [place] [id number] JAMES Robles is a 67 year old male here for a post op visit. The patient is s/p excision of right thigh mass. He has no concerns. No pain at the surgery site. No problems with his wound. The ROS, medical, surgical, family, and social history were reviewed by Amy Nazario PA-C OBJECTIVE There were no vitals taken for this visit. No weight on file for this encounter. Physical Exam: General: Patient seated in no acute distress Respiratory: Breathing comfortably on room air Skin: Incision intact with some edema underneath sutures. Sutures intact. No erythema or discharge from incision. Neurologic: He is alert and oriented to person, place, and time. Plan Surgery follow up The patient is s/p excision of right thigh mass. I reviewed his pathology which demonstrated a lipoma. The incision is healing well. He can follow up on a prn basis. All questions were answered to the patient's satisfaction and he is agreeable with the plan. Amy Nazario PA-C 10/27/2022 11:56 AM [facility] 10-27-2022 History of Present illness Narrative Images from the original note were not included. Amy Nazario PA-C Hepatobiliary Surgery [address] [facility], [place] [id number] JAMES Robles is a 67 year old male here for a post op visit. The patient is s/p excision of right thigh mass. He has no concerns. No pain at the surgery site. No problems with his wound. The ROS, medical, surgical, family, and social history were reviewed by Amy Nazario PA-C OBJECTIVE There were no vitals taken for this visit. No weight on file for this encounter. Physical Exam: General: Patient seated in no acute distress Respiratory: Breathing comfortably on room air Skin: Incision intact with some edema underneath sutures. Sutures intact. No erythema or discharge from incision. Neurologic: He is alert and oriented to person, place, and time. Plan Surgery follow up The patient is s/p excision of right thigh mass. I reviewed his pathology which demonstrated a lipoma. The incision is healing well. He can follow up on a prn basis. All questions were answered to the patient's satisfaction and he is agreeable with the plan. Amy Nazario PA-C 10/27/2022 11:56 AM documented in this encounter [facility] 10-13-2022 Note HNO ID: [id number] Author: Zenaida Kincaid APRN.CRNA Service: Anesthesiology Author Type: Nurse Home Appliance Installer Type: Anesthesia Procedure Notes Filed: 10/13/2022 11:07 AM Note Text: ANESTHESIOLOGY PROCEDURE NOTE Airway General Information Procedure Start Time/Medication Administration: 10/13/2022 10:54 AM Patient location during procedure: OR Timeout Performed Pre-procedure: timeout performed Consent Obtained: Yes Patient identity confirmed: arm band and patient Staffing MERCHANDISING TEAM LEAD: Zenaida Kincaid APRN.MERCHANDISING TEAM LEAD Performed by: WILLIAM Indications and Patient Condition Indications for airway management: anesthesia Preoxygenated: yes anesthesia circuit Patient position: sniffing Method: asleep Difficult Mask: No Final Airway Details Final airway type: endotracheal airway Final Endotracheal Airway: ETT Cuffed: yes Successful intubation technique: direct laryngoscopy Devices used: intubating stylet Endotracheal tube insertion site: oral Blade: Rj Blade size: #4 ETT size (mm): 8.0 Measured from: lips Measurement (cm): 22 Placement verified by: chest auscultation and capnometry Cormack-Lehane Classification: grade IIa - partial view of glottis Number of attempts at approach: 1 SIGNATURE: Zenaida Kincaid APRN.MERCHANDISING TEAM LEAD PATIENT NAME: Lee Robles DATE: October 13, 2022 TIME: 11:07 AM CSN: [id number] [facility] 09-26-2022 Note HNO ID: [id number] Author: Zohreh Lan MD Service: ? Author Type: Physician Type: Progress Notes Filed: 10/22/2022 4:05 PM Note Text: Zohreh Lan M.D. Surgical Oncology [address] [facility], [address] [place] [address] VIRTUAL VISIT PROGRESS NOTE This is a virtual visit using Audio only. It required patient-provider interaction for the medical decision making as documented below. Lee Robles is a 67 year old male seen for follow up of a right thigh mass. Patient was last seen in clinic on 08/25/2022. We elected to perform an MRI which patient recently had He presents today to discuss these results. He reports no significant change to his medical history since his last visit. He reports no new or worsening symptoms since his last visit. HISTORY REVIEWED (electronic chart updated): PAST MEDICAL HISTORY Diagnosis Date Diabetes mellitus (HCC) Hypertension Mass of right thigh PAST SURGICAL HISTORY Procedure Laterality Date NONE FAMILY HISTORY Problem Relation Age of Onset Diabetes Mother Diabetes Father Social History Tobacco Use Smoking status: Never Smokeless tobacco: Never Substance Use Topics Alcohol use: Never Drug use: Never Current Outpatient Medications Medication Sig metFORMIN (GLUCOPHAGE) 500 mg tablet Take 500 mg by mouth daily with breakfast. multivitamin tablet Take 1 tablet by mouth once daily. OMEGA 9-FFX-ADE-FISH OIL ORAL Take 1,000 mg by mouth once daily. MEDICATION, NON-DATABASE Pomegrante juice 2 oz daily CINNAMON 1000 mg oral daily ONETOUCH VERIO TEST STRIPS test strip TEST BLOOD SUGER FOUR TIMES DAILY glimepiride (AMARYL) 4 mg tablet Take 4 mg by mouth once daily. ONETOUCH DELICA PLUS LANCET 30 gauge lisinopril (ZESTRIL, PRINIVIL) 10 mg tablet Take 10 mg by mouth once daily. UNIFINE PENTIPS 31 gauge x 1/4 ndle as directed. MEDICATION, NON-DATABASE 1 tablet once daily. BioBeet No current facility-administered medications for this visit. ALLERGIES No Known Allergies REVIEW OF SYSTEMS: As noted in HPI PHYSICAL EXAMINATION: VIDEO EXAM: (if completed, performed via video enabled technology) No exam performed ASSESSMENT: (R22.41) Mass of right thigh (primary encounter diagnosis) PLAN: 67 year old man with a large lipomatous mass of the right thigh musculature. I reviewed his imaging and mass appears to arise within the vastus medialis. I discussed this diagnosis with the patient and management options. After a through discussion of the risks and benefits we elected to proceed with resection. I advised patient that we will schedule him at his earliest convenience. There are no Patient Instructions on file for this visit. It was necessary to convert the virtual visit to a telephone encounter due to technical difficulties. I spent a total of 20 minutes on the date of the service which included preparing to see the patient, counseling and educating the patient/family/caregiver, and independently interpreting results (not separately reported). Zohreh Lan MD [facility] 09-26-2022 History of Present illness Narrative Images from the original note were not included. Zohreh Lan M.D. Surgical Oncology [address] [place] [address], [address] [place] [address] VIRTUAL VISIT PROGRESS NOTE This is a virtual visit using Audio only. It required patient-provider interaction for the medical decision making as documented below. Lee Robles is a 67 year old male seen for follow up of a right thigh mass. Patient was last seen in clinic on 08/25/2022. We elected to perform an MRI which patient recently had He presents today to discuss these results. He reports no significant change to his medical history since his last visit. He reports no new or worsening symptoms since his last visit. HISTORY REVIEWED (electronic chart updated): PAST MEDICAL HISTORY Diagnosis Date Diabetes mellitus (HCC) Hypertension Mass of right thigh PAST SURGICAL HISTORY Procedure Laterality Date NONE FAMILY HISTORY Problem Relation Age of Onset Diabetes Mother Diabetes Father Social History Tobacco Use Smoking status: Never Smokeless tobacco: Never Substance Use Topics Alcohol use: Never Drug use: Never Current Outpatient Medications Medication Sig metFORMIN (GLUCOPHAGE) 500 mg tablet Take 500 mg by mouth daily with breakfast. multivitamin tablet Take 1 tablet by mouth once daily. OMEGA 9-IKJ-GIS-FISH OIL ORAL Take 1,000 mg by mouth once daily. MEDICATION, NON-DATABASE Pomegrante juice 2 oz daily CINNAMON 1000 mg oral daily ONETOUCH VERIO TEST STRIPS test strip TEST BLOOD SUGER FOUR TIMES DAILY glimepiride (AMARYL) 4 mg tablet Take 4 mg by mouth once daily. ONETOUCH DELICA PLUS LANCET 30 gauge lisinopril (ZESTRIL, PRINIVIL) 10 mg tablet Take 10 mg by mouth once daily. UNIFINE PENTIPS 31 gauge x 1/4 ndle as directed. MEDICATION, NON-DATABASE 1 tablet once daily. BioBeet No current facility-administered medications for this visit. ALLERGIES No Known Allergies REVIEW OF SYSTEMS: As noted in HPI PHYSICAL EXAMINATION: VIDEO EXAM: (if completed, performed via video enabled technology) No exam performed ASSESSMENT: (R22.41) Mass of right thigh (primary encounter diagnosis) PLAN: 67 year old man with a large lipomatous mass of the right thigh musculature. I reviewed his imaging and mass appears to arise within the vastus medialis. I discussed this diagnosis with the patient and management options. After a through discussion of the risks and benefits we elected to proceed with resection. I advised patient that we will schedule him at his earliest convenience. There are no Patient Instructions on file for this visit. It was necessary to convert the virtual visit to a telephone encounter due to technical difficulties. I spent a total of 20 minutes on the date of the service which included preparing to see the patient, counseling and educating the patient/family/caregiver, and independently interpreting results (not separately reported). Zohreh Lan MD documented in this encounter [facility] 09-22-2022 Note HNO ID: [id number] Author: RT Rene(R) Service: ? Author Type: Technologist Type: Progress Notes Filed: 09/22/2022 9:29 AM Note Text: Radiology Service Progress Note DATE OF SERVICE: September 22, 2022 TIME: 9:28 AM PATIENT IDENTITY VERIFICATION COMPLETED USING TWO (2) STANDARD IDENTIFIERS: Name and Date of confirmed by patient verbally. FALL SCREENING: Has the patient had 2 falls in the last year or 1 fall with injury or currently using an Ambulatory Assistive Device (Walker, Cane, Wheelchair, Crutches, etc.)? No PATIENT GENDER DATA: Male PATIENT RELEVANT IMPLANT DATA REVIEWED: Yes ALLERGIES: Reviewed and unchanged CONTRAST ALLERGY: NO. EXAM: MRI - CONTRAST TYPE: GROUP II PERIPHERAL IV DATA: Ambulatory: A peripheral IV was started in the Left antecubital site with a Angio cath: 22 gauge. RADIOLOGY DEPARTMENT: MR; Exam(s) Completed: Lower MSK: Femur, right SIGNATURE: RT Rene(R) PATIENT NAME: Lee Robles DATE: September 22, 2022 TIME: 9:28 AM [facility] 09-22-2022 History of Present illness Narrative Radiology Service Progress Note DATE OF SERVICE: September 22, 2022 TIME: 9:28 AM PATIENT IDENTITY VERIFICATION COMPLETED USING TWO (2) STANDARD IDENTIFIERS: Name and Date of confirmed by patient verbally. FALL SCREENING: Has the patient had 2 falls in the last year or 1 fall with injury or currently using an Ambulatory Assistive Device (Walker, Cane, Wheelchair, Crutches, etc.)? No PATIENT GENDER DATA: Male PATIENT RELEVANT IMPLANT DATA REVIEWED: Yes ALLERGIES: Reviewed and unchanged CONTRAST ALLERGY: NO. EXAM: MRI - CONTRAST TYPE: GROUP II PERIPHERAL IV DATA: Ambulatory: A peripheral IV was started in the Left antecubital site with a Angio cath: 22 gauge. RADIOLOGY DEPARTMENT: MR; Exam(s) Completed: Lower MSK: Femur, right SIGNATURE: RT Rene(R) PATIENT NAME: Lee Robles DATE: September 22, 2022 TIME: 9:28 AM documented in this encounter [facility] 08-25-2022 Note HNO ID: [id number] Author: Zohreh Lan MD Service: ? Author Type: Physician Type: Progress Notes Filed: 08/25/2022 9:28 AM Note Text: Zohreh Lan M.D. Surgical Oncology [address] [facility], [address] [place] [id number] SUBJECTIVE HPI Lee Robles is a 66 year old male presenting for evaluation of a right thigh mass. Patient reports that he has had this mass for a while but is not totally sure how long. He states that when he was younger (BB in his 20s) he was kicked in the right thigh by a draft horse. 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 However, patient reports that he has been intentionally losing weight and has noted this mass more obviously. He feels that this is been more prominent over the past may be 2 years. He was referred to surgery and an ultrasound was obtained. This demonstrated a 9 cm mass in the right thigh. Given this finding he was referred to surgical oncology for further evaluation. Currently, patient reports no symptoms related to this mass. As previously stated since he is losing weight he is unsure if it is growing. He reports no pesticide or herbicide exposures. No family history of sarcomas or similar cancers no personal history of sarcomas or similar cancers. Review of Systems Constitutional: Negative for malaise/fatigue and weight loss. HENT: Negative for sore throat. Eyes: Negative for blurred vision and double vision. Respiratory: Negative for cough, hemoptysis, shortness of breath and stridor. Cardiovascular: Negative for palpitations, claudication and leg swelling. Gastrointestinal: Negative for abdominal pain, blood in stool, nausea and vomiting. Genitourinary: Negative for dysuria, flank pain and hematuria. Musculoskeletal: Negative for falls, joint pain and myalgias. Skin: Negative for rash. Neurological: Negative for speech change, focal weakness and headaches. Endo/Heme/Allergies: Does not bruise/bleed easily. Psychiatric/Behavioral: Negative for depression and memory loss. The patient is not nervous/anxious. PAST MEDICAL HISTORY Diagnosis Date Diabetes mellitus (HCC) Hypertension Mass of right thigh PAST SURGICAL HISTORY Procedure Laterality Date NONE Social History Tobacco Use Smoking status: Never Smokeless tobacco: Never Substance Use Topics Alcohol use: Never Drug use: Never FAMILY HISTORY Problem Relation Age of Onset Diabetes Mother Diabetes Father The ROS, medical, surgical, family, and social history were reviewed by Zohreh aLn MD ALLERGIES No Known Allergies Current Outpatient Medications Medication Sig ONETOUCH VERIO TEST STRIPS test strip TEST BLOOD SUGER FOUR TIMES DAILY glimepiride (AMARYL) 4 mg tablet Take 4 mg by mouth once daily. SEMGLEE,INSULIN GLARG-YFGN,PEN 100 unit/mL (3 mL) insulin pen Inject 10 units subcutaneous nightly ONETOUCH DELICA PLUS LANCET 30 gauge lisinopril (ZESTRIL, PRINIVIL) 10 mg tablet Take 10 mg by mouth once daily. UNIFINE PENTIPS 31 gauge x 1/4 ndle as directed. CINNAMON MEDICATION, NON-DATABASE BioBeet No current facility-administered medications for this visit. OBJECTIVE BP 122/78 Pulse 78 Ht 177.8 cm (5' 10 ) Wt 88.5 kg (195 lb) SpO2 98% BMI 27.98 kg/m? BMI 27.98 kg/(m2) Physical Exam Constitutional: General: He is not in acute distress. HENT: Head: Normocephalic and atraumatic. Eyes: Pupils: Pupils are equal, round, and reactive to light. Neck: Thyroid: No thyromegaly. Trachea: No tracheal deviation. Cardiovascular: Rate and Rhythm: Normal rate and regular rhythm. Heart sounds: Normal heart sounds. Pulmonary: Effort: Pulmonary effort is normal. No respiratory distress. Breath sounds: Normal breath sounds. No stridor. Abdominal: General: There is no distension. Palpations: Abdomen is soft. Tenderness: There is no abdominal tenderness. Musculoskeletal: General: No deformity. Normal range of motion. Comments: Mobile firm mass of the right thigh, no overlying skin changes. Skin: General: Skin is warm and dry. Findings: No erythema or rash. Neurological: Mental Status: He is alert and oriented to person, place, and time. Psychiatric: Mood and Affect: Affect normal. Judgment: Judgment normal. ASSESSMENT AND PLAN Plan 66-year-old man with a firm mass of the right thigh. The duration of this mass is not totally clear but it has been present for at least years. Also unclear as to whether or not it is changing in size given the patient has been losing weight intentionally. Advised patient that I am uncertain of the etiology of this mass but I like to perform an MRI to better elucidate patient's relationship to surrounding structures as well as possibly provide some diagnostic information. Patient will follow up with me after the MRI. Answered all of his and his w (more content not included)... [facility] 08-25-2022 History of Present illness Narrative Images from the original note were not included. Zohreh Lan M.D. Surgical Oncology [address] [facility], [address] [place] [address] SUBJECTIVE HPI Lee Robles is a 66 year old male presenting for evaluation of a right thigh mass. Patient reports that he has had this mass for a while but is not totally sure how long. He states that when he was younger (BB in his 20s) he was kicked in the right thigh by a draft horse. 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 However, patient reports that he has been intentionally losing weight and has noted this mass more obviously. He feels that this is been more prominent over the past may be 2 years. He was referred to surgery and an ultrasound was obtained. This demonstrated a 9 cm mass in the right thigh. Given this finding he was referred to surgical oncology for further evaluation. Currently, patient reports no symptoms related to this mass. As previously stated since he is losing weight he is unsure if it is growing. He reports no pesticide or herbicide exposures. No family history of sarcomas or similar cancers no personal history of sarcomas or similar cancers. Review of Systems Constitutional: Negative for malaise/fatigue and weight loss. HENT: Negative for sore throat. Eyes: Negative for blurred vision and double vision. Respiratory: Negative for cough, hemoptysis, shortness of breath and stridor. Cardiovascular: Negative for palpitations, claudication and leg swelling. Gastrointestinal: Negative for abdominal pain, blood in stool, nausea and vomiting. Genitourinary: Negative for dysuria, flank pain and hematuria. Musculoskeletal: Negative for falls, joint pain and myalgias. Skin: Negative for rash. Neurological: Negative for speech change, focal weakness and headaches. Endo/Heme/Allergies: Does not bruise/bleed easily. Psychiatric/Behavioral: Negative for depression and memory loss. The patient is not nervous/anxious. PAST MEDICAL HISTORY Diagnosis Date Diabetes mellitus (HCC) Hypertension Mass of right thigh PAST SURGICAL HISTORY Procedure Laterality Date NONE Social History Tobacco Use Smoking status: Never Smokeless tobacco: Never Substance Use Topics Alcohol use: Never Drug use: Never FAMILY HISTORY Problem Relation Age of Onset Diabetes Mother Diabetes Father The ROS, medical, surgical, family, and social history were reviewed by Zohreh Lan MD ALLERGIES No Known Allergies Current Outpatient Medications Medication Sig ONETOUCH VERIO TEST STRIPS test strip TEST BLOOD SUGER FOUR TIMES DAILY glimepiride (AMARYL) 4 mg tablet Take 4 mg by mouth once daily. SEMGLEE,INSULIN GLARG-YFGN,PEN 100 unit/mL (3 mL) insulin pen Inject 10 units subcutaneous nightly ONETOUCH DELICA PLUS LANCET 30 gauge lisinopril (ZESTRIL, PRINIVIL) 10 mg tablet Take 10 mg by mouth once daily. UNIFINE PENTIPS 31 gauge x 1/4 ndle as directed. CINNAMON MEDICATION, NON-DATABASE [employer] No current facility-administered medications for this visit. OBJECTIVE BP 122/78 Pulse 78 Ht 177.8 cm (5' 10 ) Wt 88.5 kg (195 lb) SpO2 98% BMI 27.98 kg/m BMI 27.98 kg/(m^2) Physical Exam Constitutional: General: He is not in acute distress. HENT: Head: Normocephalic and atraumatic. Eyes: Pupils: Pupils are equal, round, and reactive to light. Neck: Thyroid: No thyromegaly. Trachea: No tracheal deviation. Cardiovascular: Rate and Rhythm: Normal rate and regular rhythm. Heart sounds: Normal heart sounds. Pulmonary: Effort: Pulmonary effort is normal. No respiratory distress. Breath sounds: Normal breath sounds. No stridor. Abdominal: General: There is no distension. Palpations: Abdomen is soft. Tenderness: There is no abdominal tenderness. Musculoskeletal: General: No deformity. Normal range of motion. Comments: Mobile firm mass of the right thigh, no overlying skin changes. Skin: General: Skin is warm and dry. Findings: No erythema or rash. Neurological: Mental Status: He is alert and oriented to person, place, and time. Psychiatric: Mood and Affect: Affect normal. Judgment: Judgment normal. ASSESSMENT AND PLAN Plan 66-year-old man with a firm mass of the right thigh. The duration of this mass is not totally clear but it has been present for at least years. Also unclear as to whether or not it is changing in size given the patient has been losing weight intentionally. Advised patient that I am uncertain of the etiology of this mass but I like to perform an MRI to better elucidate patient's relationship to surrounding structures as well as possibly provide some diagnostic information. Patient will follow up with me after the MRI. Answered all of his and his 's questions. They are agreeable to this plan. I spent a total of 30 minutes on the date of the service which included preparing to see the patient, completing clinical documentation, performing a medically appropriate examination, counseling and educating the patient/family/caregiver, ordering medications, tests, or procedures, and independently interpreting results (not separately reported). Zohreh Lan MD 08/25/2022 9:03 AM documented in this encounter [facility] Diagnosis Mass of right thigh- Primary [facility] Diagnosis Mass of right thigh- Primary Mass of right thigh documented in this encounter [facility] note* Diagnosis Mass of right thigh- Primary documented in this encounter [facility] note* Diagnosis Surgery follow-up- Primary Follow-up examination, following unspecified surgery documented in this encounter [facility] note* Diagnosis Mass of right thigh documented in this encounter [facility] Reason for Referral Specialty Diagnoses / Procedures Referred By Contac t Referred To Contact MR IMAGING Diagnoses Mass of right thigh Procedures MRI UPPER LEG WO/W IVCON RT MRI LOWER EXTREM OTH/THN JT W/O & W/CONTR MATR Zohreh Lan MD [address] [place] [address] Mr Imaging Referral ID Status Reason Start Date Expiration Date Visits Requested Visits Authorized [id number] Pending Review Auto-Generat ed Referral 08/25/2022 09/24/2023 1 1 Specialty Diagnoses / Procedures Referred By Contac t Referred To Contact MR IMAGING Diagnoses Mass of right thigh Procedures MRI UPPER LEG WO/W IVCON RT MRI LOWER EXTREM OTH/THN JT W/O & W/CONTR MATR Zohreh Lan MD [address] [place] [address] [place] [id number] Referral ID Status Reason Start Date Expiration Date V isits Requested Visits Authorized [id number] Closed Auto-Generate d Referral 09/11/2022 11/10/2022 1 1 Summary Purpose Family History No Family History Records FoundNo Family History Records Found Advance Directives No Advanced Directives Records FoundNo Advanced Directives Records Found Additional Source Comments Source Comments (unrecognize d section and content) In the event this informatio n is protected by the Federal Confidentiality of Alcohol and Drug Abuse Patient Records regulations: The Federal rules restrict any use of the information to criminally investigate or prosecute any alcohol or drug abuse patient.[facility] the event this information is protected by the Federal Confidentiality of Alcohol and Drug Abuse Patient Records regulations: The Federal rules restrict any use of the information to criminally investigate or prosecute any alcohol or drug abuse patient.[facility] the event this information is protected by the Federal Confidentiality of Alcohol and Drug Abuse Patient Records regulations: The Federal rules restrict any use of the information to criminally investigate or prosecute any alcohol or drug abuse patient.[facility] the event this information is protected by the Federal Confidentiality of Alcohol and Drug Abuse Patient Records regulations: The Federal rules restrict any use of the information to criminally investigate or prosecute any alcohol or drug abuse patient.[facility] the event this information is protected by the Federal Confidentiality of Alcohol and Drug Abuse Patient Records regulations: The Federal rules restrict any use of the information to criminally investigate or prosecute any alcohol or drug abuse patient.[facility] the event this information is protected by the Federal Confidentiality of Alcohol and Drug Abuse Patient Records regulations: The Federal rules restrict any use of the information to criminally investigate or prosecute any alcohol or drug abuse patient.[facility] Care Teams (unrecognized sec tion and content) Rod Hanger Relationship Specialty Start Date End Date Benji Soni NP [address] [place] [address] PCP - General Family Medicine 09/27/22 Zohreh Lan MD [address] [facility] [place], [place] [id number] Consulting General Surgery 08/25/22 Rod Hanger Relationship Specialty Start Date End Date Zohreh Lan MD [address] [facility] [place] [place] [id number] Consulting General Surgery 08/25/22 Rod Hanger Relationship Specialty Start Date End Date Benji Soni NP [address] [place], [place] [address] PCP - General Family Medicine 09/27/22 Zohreh Lan MD [address] [place], [place] [id number] Consulting General Surgery 08/25/22 Rod Hanger Relationship Specialty Start Date End Date Zohreh Lna MD [address] [place], [place] [id number] Consulting General Surgery 08/25/22 (unrecognized sect ion and content) No Status Records FoundNo Status Records Found INFORMATION SOURCE (unrecogn ized section and content) DATE CREATED AUTHOR AUTHOR'S ORGANIZ ATION 10/27/2022 [facility] Reason for Visit (unrecogniz ed section and content) Reason Comments Post Op S/P Excision of thig h mass Specialty Diagnoses / Procedures Referred By Haleigh t Referred To Contact MR IMAGING Diagnoses Mass of right thigh Procedures MRI UPPER LEG WO/W IVCON RT MRI LOWER EXTREM OTH/THN JT W/O & W/CONTR MATR Zohreh Lan MD [address] [place] [address] [place] [id number] Referral ID Status Reason Start Date Expiration Date V isits Requested Visits Authorized [id number] Closed Auto-Generate d Referral 09/11/2022 11/10/2022 1 1 FOR RECORDS PERTAINING TO PATIENTS WHO ARE OR HAVE BEEN ENROLLED IN A CHEMICAL DEPENDENCY/SUBSTANCEABUSE PROGRAM, SOME INFORMATION MAY BE OMITTED. This clinical summary was aggregated from multiple sources. Caution should be exercised in using it in the provision of clinical care. This summary normalizes information from multiple sources, and as a consequence, information in this document may materially change the coding, format and clinical context of patient data. In addition, data may be omitted in some cases. CLINICAL DECISIONS SHOULD BE BASED ON THE PRIMARY CLINICAL RECORDS. [employer] provides no warranty or guarantee of the accuracy or completeness of information in this document.
== END | disposition home or self-care (01) ==
LOC: LABSPEC 16:04
PROVIDERS: Referring Provider Urology; Visit Provider Urology
DX: R97.20 Elevated prostate specific antigen [PSA] (principal)
CPT/HCPCS: 88305; 88341; 88342; G0416

== ENCOUNTER → 2023-11-21 | Outpatient (CLI) | payer MEDICARE, SELFPAY ==
[2023-11-21 10:03] LABS: PSA,Total- Diagnostic 7.76 ng/mL (0.0-4.0)
== END | disposition home or self-care (01) ==
LOC: LAB 08:48
PROVIDERS: Visit Provider Urology
DX: C61 Malignant neoplasm of prostate (principal)
CPT/HCPCS: 36415; 84153

== ENCOUNTER → 2024-01-30 | Outpatient (CLI) | payer MEDICARE, SELFPAY ==
[2024-01-30 12:47] LABS: Absolute Lymphocyte Count 1.91 X10^3/uL (0.83-4.51); Absolute Neutrophil Count 5.6 X10^3/uL (2.0-7.7); Basophil# 0.07 X10^3/uL; Basophil% 0.8 % (0-1); Eosinophil# 0.24 X10^3/uL; Eosinophils% 2.9 % (0-5); Hematocrit 40.7 % (40-54); Hemoglobin 13.5 g/dL (13.0-16.5); Lymphocyte # 1.91 X10^3/ul (0.83-4.51); Lymphocyte % 22.7 % (19-41); Mean Corp Hgb Conc 33.2 g/dL (32-36); Mean Corpuscular Hgb 30.8 pg (27.0-32.0); Mean Corpuscular Volume 92.9 fL (80-94); Mean Platelet Vol. 10.3 fl (6.2-12.0); Monocyte# 0.59 X10^3/uL; NRBC Flagged by Analyzer 0 % (0-5); Neutrophil # 5.57 X10^3/uL (2.7-7.7); Neutrophil % 66.4 % (47-70); Platelet Count 241 K/mm3 (150-450); RBC Distribution Width SD 44.3 fl (35.1-43.9); Red Blood Count 4.38 M/mm3 (4.6-6.2); White Blood Count 8.4 K/mm3 (4.4-11.0)
[2024-01-30 13:38] LABS: ALB/GLOB Ratio 0.9 RATIO (0.9-2.4); AST(SGOT) 41 U/L (15-37); Alanine Aminotransfer ALT/SGPT 26 U/L (16-61); Albumin, Serum 3.5 g/dL (3.2-5.0); Alkaline Phosphatase 62 U/L (45-117); Anion Gap 9 (5-15); BUN 23 mg/dL (7-18); BUN/Creat Ratio 22.1 RATIO (10-20); Calcium,Total 8.5 mg/dL (8.5-10.1); Chloride 107 mmol/L (98-107); Cholesterol 149 mg/dL (200); Creatinine, Serum 1.04 mg/dL (0.70-1.30); EST Glomerular Filtration Rate 75 mL/min (>60); Est Glom Filt Rate - Afr Amer 91 mL/min (>60); Globulin 3.9 g/dL (2.2-4.2); Glucose 102 mg/dL (74-106); High Density Lipoprotein 36 mg/dL; Potassium 4.3 mmol/L (3.5-5.1); Protein, Total 7.4 g/dL (6.4-8.2); Sodium Level 139 mmol/L (136-145); Thyroid Stim Hormone (TSH) 1.08 uIU/mL (0.358-3.74); Triglycerides 129 mg/dL; Very Low Density Lipoprotein 26 mg/dL (5-40)
== END | disposition home or self-care (01) ==
LOC: VSLAB 08:46
PROVIDERS: PCP Nurse Practitioner Family; Referring Provider Nurse Practitioner Family; Visit Provider Nurse Practitioner Family
DX: Z13.220 Encounter for screening for lipoid disorders (principal); E11.9 Type 2 diabetes mellitus without complications
CPT/HCPCS: 36415; 80053; 80061; 84443; 85025

== ENCOUNTER → 2024-05-28 | Outpatient (CLI) | payer MEDICARE, SELFPAY ==
[2024-05-28 12:13] LABS: PSA,Total- Diagnostic 8.58 ng/mL (0.0-4.0)
== END | disposition home or self-care (01) ==
LOC: LAB 11:03
PROVIDERS: PCP Nurse Practitioner Family; Referring Provider Urology; Visit Provider Urology
DX: C61 Malignant neoplasm of prostate (principal)
CPT/HCPCS: 36415; 84153

== ENCOUNTER → 2024-10-29 | Outpatient (CLI) | payer MEDICARE, SELFPAY ==
[2024-10-29 12:44] LABS: Absolute Lymphocyte Count 2.17 X10^3/uL (0.83-4.51); Absolute Neutrophil Count 4.2 X10^3/uL (2.0-7.7); Basophil# 0.05 X10^3/uL; Basophil% 0.7 % (0-1); Eosinophil# 0.33 X10^3/uL; Eosinophils% 4.5 % (0-5); Hematocrit 41.2 % (40-54); Hemoglobin 13.7 g/dL (13.0-16.5); Lymphocyte # 2.17 X10^3/ul (0.83-4.51); Lymphocyte % 29.7 % (19-41); Mean Corp Hgb Conc 33.3 g/dL (32-36); Mean Corpuscular Hgb 30.6 pg (27.0-32.0); Mean Corpuscular Volume 92.2 fL (80-94); Mean Platelet Vol. 10.5 fl (6.2-12.0); Monocyte# 0.59 X10^3/uL; Monocyte% 8.1 % (0-10); NRBC Flagged by Analyzer 0 % (0-5); Neutrophil # 4.16 X10^3/uL (2.7-7.7); Neutrophil % 56.9 % (47-70); Platelet Count 254 K/mm3 (150-450); RBC Distribution Width SD 43.9 fl (35.1-43.9); Red Blood Count 4.47 M/mm3 (4.6-6.2); White Blood Count 7.3 K/mm3 (4.4-11.0)
[2024-10-29 13:27] LABS: ALB/GLOB Ratio 1.3 RATIO (0.9-2.4); AST(SGOT) 44 U/L (<=37); Alanine Aminotransfer ALT/SGPT 18 U/L (<=46); Albumin, Serum 4.4 g/dL (3.4-4.8); Alkaline Phosphatase 65 U/L (40-129); Anion Gap 12 (5-15); BUN 32 mg/dL (4-19); BUN/Creat Ratio 29.3 RATIO (10-20); Calcium,Total 9.4 mg/dL (7.6-11.0); Carbon Dioxide 22.9 mmol/L (21.0-32.0); Chloride 103 mmol/L (98-108); Cholesterol 180 mg/dL (<=200); EST Glomerular Filtration Rate 73 (>60); Globulin 3.3 g/dL (2.2-4.2); Glucose 121 mg/dL (70-99); High Density Lipoprotein 31 mg/dL; Low Density Lipoprotein Calc. 115 mg/dL; Protein, Total 7.7 g/dL (5.9-8.4); Sodium Level 138 mmol/L (133-145); Total Bilirubin 0.43 mg/dL (0.00-1.30); Triglycerides 169 mg/dL; Very Low Density Lipoprotein 34 mg/dL (5-40); cholesterol:hdl ratio screen 5.75
[2024-10-29 13:44] LABS: Microalbumin,Random Urine < 12.0 mg/L (NO RANGE EST.)
== END | disposition home or self-care (01) ==
LOC: VSLAB 10:38
PROVIDERS: PCP Nurse Practitioner Family
DX: I10 Essential (primary) hypertension (principal)
CPT/HCPCS: 36415; 80053; 80061; 82043; 84443; 85025

== ENCOUNTER → 2024-11-25 | Outpatient (CLI) | payer MEDICARE, SELFPAY ==
[2024-11-25 13:41] LABS: PSA,Total- Diagnostic 7.65 ng/mL (0.00-4.00)
== END | disposition home or self-care (01) ==
LOC: LAB 12:11
PROVIDERS: PCP Nurse Practitioner Family; Referring Provider Urology; Visit Provider Urology
DX: C61 Malignant neoplasm of prostate (principal)
CPT/HCPCS: 36415; 84153

== ENCOUNTER → 2024-12-12 | Outpatient (CLI) | payer MEDICARE, SELFPAY ==
[2024-12-12 16:31] LABS: Absolute Neutrophil Count 5.8 X10^3/uL (2.0-7.7); Basophil# 0.06 X10^3/uL; Basophil% 0.7 % (0-1); Eosinophil# 0.23 X10^3/uL; Eosinophils% 2.8 % (0-5); Hematocrit 41.4 % (40-54); Hemoglobin 13.7 g/dL (13.0-16.5); Lymphocyte % 18.4 % (19-41); Mean Corp Hgb Conc 33.1 g/dL (32-36); Mean Corpuscular Hgb 30.9 pg (27.0-32.0); Mean Corpuscular Volume 93.2 fL (80-94); Mean Platelet Vol. 10.5 fl (6.2-12.0); Monocyte# 0.53 X10^3/uL; Monocyte% 6.5 % (0-10); NRBC Flagged by Analyzer 0 % (0-5); Neutrophil # 5.83 X10^3/uL (2.7-7.7); Neutrophil % 71.4 % (47-70); Platelet Count 250 K/mm3 (150-450); RBC Distribution Width CV 13.5 % (11.6-14.6); RBC Distribution Width SD 45.9 fl (35.1-43.9); Red Blood Count 4.44 M/mm3 (4.6-6.2); White Blood Count 8.2 K/mm3 (4.4-11.0)
[2024-12-12 16:57] LABS: ALB/GLOB Ratio 1.4 RATIO (0.9-2.4); AST(SGOT) 41 U/L (<=37); Alanine Aminotransfer ALT/SGPT 17 U/L (<=46); Albumin, Serum 4.3 g/dL (3.4-4.8); Alkaline Phosphatase 67 U/L (40-129); Anion Gap 13 (5-15); BUN 28 mg/dL (4-19); BUN/Creat Ratio 21.8 RATIO (10-20); Calcium,Total 8.9 mg/dL (7.6-11.0); Carbon Dioxide 22.3 mmol/L (21.0-32.0); Chloride 106 mmol/L (98-108); Creatinine, Serum 1.27 mg/dL (0.70-1.20); EST Glomerular Filtration Rate 61 (>60); Globulin 3.1 g/dL (2.2-4.2); Glucose 147 mg/dL (70-99); Magnesium 2.2 mg/dL (1.5-2.2); Potassium 4.6 mmol/L (3.3-5.1); Protein, Total 7.4 g/dL (5.9-8.4); Sodium Level 141 mmol/L (133-145); Total Bilirubin 0.27 mg/dL (0.00-1.30)
== END | disposition home or self-care (01) ==
LOC: VSLAB 15:58
PROVIDERS: PCP Nurse Practitioner Family
DX: I48.91 Unspecified atrial fibrillation (principal)
CPT/HCPCS: 36415; 80053; 83735; 84443; 85025

== ENCOUNTER → 2025-02-12 | Outpatient (CLI) | payer MEDICARE, SELFPAY ==
--- NOTE | 2025-02-12 06:55 | ECHOD_ITS ---
Reason For Study Reason For Study: SHORTNESS OF BREATH Procedure This was a 2D Doppler, Color Flow transthoracic echocardiogram. Exam performed in department. Left Ventricle Normal LV size. The left ventricular ejection fraction is 60 %. No regional wall motion abnormalities noted. Right Ventricle Normal RV size. Normal systolic function. Atria The left atrium is mildly enlarged. Normal right atrium. Mitral Valve Normal mitral valve. Mild (1+) eccentric mitral valve insufficiency. Tricuspid Valve Normal tricuspid valve. Mild tricuspid valve insufficiency. Aortic Valve Trisinus/trileaflet aortic valve. Pulmonic Valve Normal pulmonic valve. Great Vessels Normal aortic root. The pulmonary artery is normal size. Normal inferior vena cava. Pericardium/Pleural No pericardial effusion. MMode/2D Measurements & Calculations LVIDd: 5.2 cm IVSd: 0.96 cm LVOT diam: 2.2 cm LVIDs: 3.1 cm LVPWd: 0.78 cm LVOT area: 3.8 cm2 RVDd: 4.6 cm FS: 40.5 % Ao root diam: 4.0 cm asc Aorta Diam: 3.6 cm LAV(MOD- bp): 79.7 ml LAV(MOD- bp) Indexed: 38.6 ml/m2 LAV(MOD- sp2): 76.8 ml LAV(MOD- sp4): 82.7 ml SV(MOD- sp4): 33.6 ml LVAd ap4: 24.1 cm2 LVAd ap2: 27.9 cm2 LVLd ap4: 7.5 cm LVLd ap2: 7.6 cm SI(MOD- sp4): 16.3 ml/m2 EDV(MOD-sp4): 63.0 ml EDV(MOD-sp2): 84.6 ml EDV(sp4-el): 65.3 ml EDV(sp2-el): 87.3 ml LVAs ap4: 14.9 cm2 LVAs ap2: 15.3 cm2 LVLs ap4: 6.6 cm LVLs ap2: 6.5 cm ESV(MOD-sp4): 29.4 ml ESV(MOD-sp2): 31.4 ml ESV(sp4-el): 28.7 ml ESV(sp2-el): 30.7 ml EF(MOD-sp4): 53.3 % EF(MOD-sp2): 62.9 % EF(sp4-el): 56.1 % SV(MOD-sp2): 53.2 ml SV(sp4-el): 36.[address] Junction: 3.1 cm SI(MOD-sp2): 25.8 ml/m2 LA dimension(2D): 4.3 cm LA A4 area: 25.1 cm2 RA A4 area: 12.8 cm2 TAPSE: 2.2 cm Time Measurements MV dec time: 0.15 sec Doppler Measurements & Calculations MV E max danny: 73.5 cm/sec Lat Peak E' Danny: 10.8 cm/sec Med Peak E' Danny: 9.2 cm/sec MV A max danny: 59.7 cm/sec E/E' lat: 6.8 E/E' med: 8.0 MV E/A: 1.2 MV dec slope: 494.1 cm/sec2 Ao V2 max: 126.2 cm/sec LV V1 max: 96.2 cm/sec Ao max P.4 mmHg LV V1 max P.7 mmHg Ao V2 mean: 84.8 cm/sec LV V1 mean P.3 mmHg Ao mean P.3 mmHg LV V1 mean: 71.8 cm/sec Ao V2 VTI: 30.3 cm LV V1 VTI: 25.0 cm AV (velocity ratio): 0.83 FRANCK(I,D): 3.2 cm2 FRANCK(V,D): 2.9 cm2 SV(LVOT): 96.1 ml PA V2 max: 97.7 cm/sec TR max danny: 155.3 cm/sec TR max P.7 mmHg ECHO/Echo Complete Interpretation Summary Normal LV size. The left ventricular ejection fraction is 60 %. The left atrium is mildly enlarged. Mild tricuspid valve insufficiency. Ordering Physician: Bentley Tejada Referring Physician: Bentley Tejada MD Performed By: Chichi Fonseca RDCS
--- OUTSIDE RECORDS SUMMARY | 2025-02-12 06:59 | XMS RPT_ITS | CCD ---
Author Organization [facility] Care Team Providers Care Supervisor Forming Department Name Role Phone Care Physician, No Primary Primary Care Provider Unavailable Care Physician, No Primary Referring Provider Un available DALTON Carey Attending Provider [facility], [facility] Primary Care Pro vider [facility], [place] [facility] Referring Provid er Dr. Bipin Lu Attending Provider Unavailable Primary Care Provider UnavailBipin Hodge MD Unavailable Brittany Manning NP Primary Care Provider BIPIN LAN Admitting Unavailable BIPIN LAN Attending Unavailable BIPIN LAN Referring Unavailable ZACHARIAH BRITTANY Primary Care Unavailable BIPIN LAN Attending Unavailable ANGÉLICA LIAO Attending Unavailable NEHALEM BRITTANY Primary Care Unavailable [facility], [place] [facility] Primary Care Pro vider Zuleika Menjivar Attending Provider Unavailable [facility], [place] Amy Referring Provid er FriendDr. Zazueta Attending Provider FriendDr. Zazueta Other Provider [facility], [place] [facility] Primary Care Pro vider [facility], [place] [facility] Referring Provid er FriendDr. Zazueta Attending Provider [phone] Friend, Dr. Zazueta Other Provider BIPIN LAN Referring Unavailable BIPIN LAN Attending Unavailable Zachariah PEANCBrittany Primary Care Provider Beam [employer] [facility], Lena Attending Provider Thi WORRELL, Dr. Good Lucero Attending Provider Thi WORRELL, Dr. Good Lucero Referring Provider [phone] Zachariah [employer], [facility] Referring Provider Terrell WORRELL, Dr. Hagan Attending Provider [facility], [facility] Primary Care Unavailabl e Good Ness Attending Unavailable ThiGood diaz Referring Unavailable Terrell, Lonedell Attending Unavailable Terrell, Lonedell Referring Unavailable [facility], [facility] Primary Care Unavailabl e Zachariah [facility], [facility] Primary Care Unavailabl e Terrell, Lonedell Attending Unavailable Terrell, Bentley Referring Unavailable [facility], Zebulun Attending Unavailable [facility], [facility] Primary Care Unavailabl e Terrell, Lonedell Attending Unavailable [facility], [facility] Primary Care Unavailabl e [facility], [facility] Referring Unavailabl e [facility], [facility] Primary Care Unavailabl e Good Ness Attending Unavailable Good Ness Referring Unavailable [facility], Lena Attending Unavailable [facility], [facility] Primary Care Unavailabl e Medications Current Medications Medication Drug Class(es) Dates Sig (Normalized) Sig (Original) cinnamon bark 500 mg oral capsule (7 sources) Start: 12-20-2022 take 1 capsule by mouth once daily Cinnamon Bark (Cinnamon) 500 mg capsule Active 1000 mg PO DAILY December 20, 2022 12:00am [place] 1-Wzj-Jhh-Fish Oil (7 sources) Start: 12-20-2022 [place] 2-Bhe-Tdd-Fish Oil (Fish Oil) 300-1,000 mg capsule Active 1 NMA PO DAILY December 20, 2022 12:00am Start: 12-20-2022 take 300-1000 mg by mouth once daily [place] 4-Arl-Zgx-Fish Oil (Fish Oil) 300-1,000 mg capsule Active 1 CAP PO DAILY December 19, 2022 11:00pm Start: 12-20-2022 take 300-1000 mg by mouth once daily [place] 1-Xrw-Yfl-Fish Oil (Fish Oil) 300-1,000 mg capsule Active 1 CAP PO DAILY December 20, 2022 12:00am iv contrast (will be provided with radiology [...] link 1 Each 0 08/25/2022 08/26/2022 Active Comment on above: MRI upper leg RT Inj ect, intravenously, once for 1 dose. No IV [...] in the MR contrast administration guidelines link lisinopril 10 mg oral tablet (12 sources) Angiotensin Converting Enzyme Inhibitor Start: 07-05-2022 take 1 tablet by mouth once daily Lisinopril 10 mg tablet Active 10 mg PO DAILY December 20, 2022 12:00am Comment on above: Take 10 mg by mouth once daily. metFORMIN hydrochloride 500 mg oral tablet (8 sources) Biguanide Start: 12-20-2022 take 1 tablet by mouth twice daily Metformin 500 mg tablet Active 500 mg PO TWICE A DAY December 20, 2022 12:00am Start: 12-20-2022 take 500 mg by mouth once idania y Metformin Active 500 MG PO DAILY December 20, 2022 12:00am take 1 tablet by wyatt th once daily at breakfast metFORMIN (GLUCOPHAGE) 500 mg tablet Take 500 mg by mouth daily with breakfast. 0 Active Comment on above: Take 500 mg by mouth daily with breakfast. Multivitamin preparation (5 sources) Start: 3 take 1 tablet by mouth once daily Multivitamin Active 1 TABLET PO DAILY December 19, 2022 11:00pm Start: 12-20-2022 take 1 tablet by wyatt th once daily Multivitamin Active 1 TABLET PO DAILY December 20, 2022 12:00am Multivitamin tablet (2 sources) Start: 12-20-2022 Multivitamin t ablet Active 1 {tbl} PO DAILY December 20, 2022 12:00am penicillin v potassium 500 mg oral tablet (6 sources) Start: 05-18-2019 take 500 mg by mouth every six hours Penicillin V Potassium Active 500 MG PO EVERY 6 HOURS 30 May 18, 2019 1:00am Red Beet Root-Sour Busby Ext (5 sources) Start: 12-20-2022 take 1 tablet by mouth once daily Red Beet Root-Sour Busby Ext Active 1 TABLET PO DAILY December 19, 2022 11:00pm Start: 12-20-2022 take 1 tablet by wyatt th once daily Red Beet Root-Sour Busby Ext Active 1 TABLET PO DAILY December 20, 2022 12:00am Start: 12-20-2022 Red Beet Root- Sour Busby Ext Active TABLET PO December 20, 2022 12:00am Red Beet-Sour Busby Extract 250-0.5 mg tablet,chewable (2 sources) Start: 12-20-2022 Red Beet-Sour Busby Extract 250-0.5 mg tablet,chewable Active 1 {tbl} PO DAILY December 20, 2022 12:00am Completed/Discontinued Medications Medication Drug Class(es) Dates Sig (Normalized) Sig (Original) apixaban 5 mg oral tablet (1 source) Factor Xa Inhibitor Start: 01-02-2025 End: 01-15-2025 take 1 tablet by mouth twice daily Apixaban (Eliquis) 5 mg tablet Discontinued 5 mg PO TWICE A DAY January 02, 2025 12:00am January 15, 2025 11:25am cefadroxil 500 mg oral capsule (11 sources) Cephalosporin Antibacterial Start: 02-28-2018 End: 05-18-2019 take 1 capsule by mouth twice daily Cefadroxil 500 MG capsule Discontinued 500 mg PO TWICE A DAY 14 0 February 28, 2018 12:00am May 18, 2019 10:43am cephalexin 500 mg oral capsule (11 sources) Cephalosporin Antibacterial Start: 06-15-2022 End: 06-25-2022 take 1 capsule by mouth every eight hours Cephalexin 500 mg capsule Discontinued 500 mg PO Q8H 30 10 0 June 15, 2022 1:00am June 24, 2022 1:00am June 25, 2022 1:12am Cinnamon Preparation (4 sources) Non-Standardized Food Allergenic Extract End: 10-12-2022 CINNAMON take 1000 mg by mouth once daily CINNAMON 1000 mg oral daily 0 Active CINNAMON Comment on above: 1000 mg oral daily glimepiride 4 mg oral tablet (12 sources) Sulfonylurea Start: 3 End: 3 take 1 tablet by mouth once daily Glimepiride 4 mg tablet Discontinued 4 mg PO DAILY December 20, 2022 12:00am March 29, 2023 9:15am Comment on above: Take 4 mg by mouth o nce daily. MEDICATION, NON-DATABASE (6 sources) MEDICATION, NON-DATABASE Pomegrante juice 2 oz daily 0 Active MEDICATION, NON- DATABASE 1 tablet once daily. BioBeet 0 Active MEDICATION, NON- DATABASE BioBeet 0 Active Comment on above: BioBeet 1 tablet once daily. BioBeet Pomegrante juice 2 o z daily 24 hr metoprolol succinate 50 mg extended release oral tablet (1 source) beta-Adrenergic Sav Start: 01-03-20 End: 01-16-20 take 1 tablet by mouth once daily Metoprolol Succinate 50 mg tablet extended release 24 hr Discontinued 50 mg PO daily January 02, 2025 12:00am January 15, 2025 11:25am multivitamin tablet (1 source) take 1 tablet by mouth once daily multivitamin tablet Take 1 tablet by mouth once daily. 0 Active Comment on above: Take 1 tablet by wyatt th once daily. OMEGA 9-YKN-EUI-FISH OIL ORAL (1 source) take 1000 mg by mouth once daily OMEGA 2-IPW-MBZ-FISH OIL ORAL Take 1,000 mg by mouth once daily. 0 Active Comment on above: Take 1,000 mg by wyatt th once daily. SEMGLEE,INSULIN GLARG-YFGN,PEN 100 unit/mL (3 mL) insulin pen (3 sources) Start: 07-13-19 End: 10-13-19 inject 10 [IU] by subcutaneous injection once daily SEMGLEE,INSULIN GLARG-YFGN,PEN 100 unit/mL (3 mL) insulin pen Inject 10 units subcutaneous nightly 0 07/13/2022 10/12/2022 Discontinued (Discontinued by another Health Care Provider) Start: 07-13-2022 inject 10 [IU] by morton bcutaneous injection once daily SEMGLEE,INSULIN GLARG-YFGN,PEN 100 unit/mL (3 mL) insulin pen Inject 10 units subcutaneous nightly 0 07/13/2022 Active Comment on above: Inject 10 units subc utaneous nightly Problems Active Problems Problem Classification Problem Date Documented Da te Episodic/Chronic Cancer of prostate (1 source) Malignant neoplasm of prostate; Translations: [Malignant neoplasm of prostate] Onset: 11-29-2024 Chronic Cardiac dysrhythmias (3 sources) Atrial fibrillation; Translations: [Unspecified atrial fibrillation] Onset: 01-15-2025 01-02-2025 Chronic Diabetes mellitus without complication (17 sources) Diabetes mellitus; Translations: [Type 2 diabetes mellitus without complications] Onset: 08-16-2022 07-18-2022 Chronic Comment on above: ON MED Essential hypertension (19 sources) Hypertensive disorder; Translations: [Essential (primary) hypertension] Onset: 08-16-2022 07-18-2022 Chronic Comment on above: CONTROLLED WITH MED Other aftercare (1 source) Surgical follow-up; Translations: [Encounter for follow-up examination after completed treatment for conditions other than malignant neoplasm] Episodic Other lower respiratory disease (1 source) Dyspnea on exertion; Translations: [Shortness of breath] 01-02-2025 Episodic Comment on above: SLIGHTLY WITH 2 FLIG HTS OF STAIRS Other lower respiratory disease (2 sources) Shortness of breath; Translations: [Shortness of breath] Onset: 01-15-2025 Episodic Other male genital disorders (1 source) Disorder of prostate; Translations: [Disorder of prostate, unspecified] 01-02-2025 Episodic Comment on above: SLOW GROWING CANCER/ ELEVATED PSA Other screening for suspected conditions (not mental disorders or infectious disease) (10 sources) Patient encounter status; Translations: [Encounter for screening for malignant neoplasm of colon] 12-20-2022 Episodic Other skin disorders (20 sources) Mass of lower limb; Translations: [Localized swelling, mass and lump, right lower limb] Onset: 08-16-2022 07-18-2022 Episodic Comment on above: FATTY TUMOR REMOVED Skin and subcutaneous tissue infections (11 sources) Paronychia of finger; Translations: [Cellulitis of left finger] 03-01-2018 Episodic Superficial injury; contusion (15 sources) Abrasion, left great toe, initial encounter; Translations: [Infected abrasion of great toe of left foot] 06-15-2022 Episodic Unclassified (1 source) Post Op Onset: 10-27-2022 Past or Other Problems Problem Classification Problem Date Documented Da te Episodic/Chronic Other skin disorders (6 sources) Localized swelling, mass and lump, right lower limb; Translations: [Localized superficial swelling, mass, or lump] Onset: 08-16-2022 07-18-2022 Episodic Results Test Name Value Interpretation Reference Range Facility Cardiology Visit Reporton Cardiology Visit Report [facility] [address] [place] [address] OFFICE VISIT Date of Service: 01/15/25 MR#: [id number] Acct: [id number] Name: LEE ZARATE Rep #: [id number] : 1955 Provider: Dr. Bentley Tejada MD Age/Sex: 69/M Location: [facility] Status: Signed HPI HPI History of Present Illness Details: Pleasant 69-year-old man with no previous cardiac history other than hypertension who went for regular cataract surgery and was noted to be in atrial fibrillation with a rapid ventricular response rate. He was sent to and had to be put on a beta-sav as well as Eliquis but he discontinued this. He was sent here for further evaluation and management. He denies any chest pain or shortness of breath or palpitations no pedal edema has not had any neck arm or jaw discomfort suggest angina has been taking his medications for blood pressure. [facility] demonstrates atrial fibrillation with a controlled ventricular response rate. EKG done today demonstrates sinus rhythm with a rate of 67 bpm and no acute changes. Intake Vital Signs 04/04/23 13:01 01/15/25 11:20 Height 5 ft 10 in 5 ft 10 in Weight: 199 lb BMI 28.5 BP 138/84 H Blood Pressure Location Lt brachial Position Sitting Respiration 16 Pulse 70 Pulse Source Monitor Intake Visit Reasons: AFIB (ZACHARIAH) Shactor Helper Required: No Accompanied by: Significant Other Is patient in pain?: No Allergies No Known Allergies Allergy (Verified 01/15/25 11:24) Medications ???Medication ???Instructions ???Recorded ???Confirmed ???Type cinnamon bark 500 mg capsule 1,000 mg PO DAILY 12/20/22 5 History (Cinnamon) lisinopril 10 mg tablet 10 mg PO DAILY 12/20/22 01/15/25 H istory metformin 500 mg tablet 500 mg PO BID 12/20/22 01/15/25 Hi story multivitamin 1 tab PO DAILY 12/20/22 01/15/25 H istory omega 3-nrh-bae-fish oil 300 1 cap PO DAILY 12/20/22 01/15/25 H istory mg-1,000 mg capsule (Fish Oil) red beet 250 mg-sour busby 1 tab PO DAILY 12/20/22 01/15/25 H istory extract 0.5 mg chewable tablet apixaban 5 mg tablet (Eliquis) 5 mg PO BID #60 tabs 01/15/2504/03 Rx metoprolol succinate 50 mg 50 mg PO QDAY #90 tabs 01/15/25 Rx tablet,extended release 24 hr (Toprol XL) Have you fallen in the past year?: No PFSH Medical History Afib Diabetes mellitus Hypertension Prostate disease Shortness of breath on exertion Surgical History Hx of cataract surgery (12/11/24) Family History Mother Diabetes Father Diabetes Social History household members: spouse current occupational status: retired Smoking Status: Never smoker alcohol intake: never substance use type: does not use ROS Const Const: Negative for fatigue, weakness, headache(s), daytime sleepiness or difficulty sleeping ENT ENT: Negative for headache(s), dizziness or Nosebleed/epistaxis Cardio Chest Pain: No Palpitations: No Edema: None Resp Respiratory: Negative for SOB with activity, SOB at rest, SOB orthopnea SOB lying down or Cough GI GI: Negative nausea, vomiting or heartburn Neuro Neuro: Negative for dizziness, lightheadedness, near syncope, headache(s) or weakness Endo Endo: Negative for fatigue Supplemental Info Supplemental Information Labs: LDL Cholesterol 87 mg/dL (0-130) HDL Cholesterol 31 mg/dL (40-) L Cholesterol 180 mg/dL (<=200) Triglycerides 169 mg/dL (-199) Diagnostics: No Data to Display Pulmonary: No Data to Display Past Visits: Cardiology Visit 01/15/25 Assessment and Plan Assessment and Plan (1) Afib: Status: Acute Plan: Patient appears to have paroxysmal atrial fibrillation. His chads vasc score is 3 and I discussed this with the patient and his . We did conclude that he does need anticoagulation based on this as well as rate limiting medication with a beta-sav 50 mg Toprol-XL a day. An echocardiogram should be performed and I will like to also perform a stress test as well as repeat a Holter monitor in approximately a month. He does not have an iPhone and so cannot be participatory in the react A- fib trial otherwise he was interested in this. Depending on the findings further recommendations will be made. (2) Hypertension: Status: Chronic Comment: CONTROLLED WITH MED Plan: His blood pressure appears to be under good control I would not recommend that we make any major changes. Orders: Orders 12 Lead EKG performed by BMS Today I10 - Essential (primary) (more content not included)... Normal [facility] Absolute lymphocyte countOrd ered By: Lena Melendez on 12-12-2024 Lymphocytes Auto (Unsp spec) [#/Vol] 1.50 10*3/uL 0.83-4.51 [facility] Absolute neutrophil countOrd ered By: Lena Melendez on 12-12-2024 Neutrophils (Bld) [#/Vol] 5.8 10*3/uL 2.0-7.7 [facility] Anion gap in Serum or Plasma Ordered By: Lena Melendez on 12-12-2024 Anion gap [Moles/Vol] 13 mmol/L 5-15 [facility] Automated lymphocyte count a s percentage of total leukocytesOrdered By: Lena Melendez on 12-12-2024 Lymphocytes/100 WBC Auto (Unsp spec) 18.4 % Low 19-41 [facility] BUN/creatinine ratioOrdered By: Lena Melendez on 12-12-2024 Urea nitrogen/Creatinine [Mass ratio] 21.8 mg/mg High 10-20 [facility] Basophil percentageOrdered B y: Zebulun Beam on 12-12-2024 Basophils/100 WBC (Bld) 0.7 % 0-1 [facility] Bilirubin, totalOrdered By: Zebulun Beam on 12-12-2024 Bilirubin [Mass/Vol] 0.27 mg/dL 0.00-1.30 [facility] CBC W/Diff, Automatedon Absolute Lymph 1.50 X10 3/uL Normal 0.83-4.51 [facility] Comment on above: Performed By: #### L 501.9520, L500.4050, L501.5200, L100.0100 #### [facility] [address] [place], [address] Absolute Neut 5.8 X10 3/uL Normal 2.0-7.7 [facility] Comment on above: Performed By: #### L [id number], L500.4050, L501.5200, L100.0100 #### [facility] [address] [place], [address] Basophils/100 WBC (Bld) 0.7 % Normal 0-1 [facility] Comment on above: Performed By: #### L [id number], L500.4050, L501.5200, L100.0100 #### [facility] [address] [place], [address] Eosinophils/100 WBC (Bld) 2.8 % Normal 0-5 [facility] Comment on above: Performed By: #### L 501.9520, L500.4050, L501.5200, L100.0100 #### [facility] [address] [place], [address] Erythrocyte distribution width (RBC) [Ratio] 13.5 % Normal 11.6-14.6 [facility] Comment on above: Performed By: #### L [id number], L500.4050, L501.5200, L100.0100 #### [facility] [address] [place], [address] Hematocrit (Bld) [Volume fraction] 41.4 % Normal 40-54 [facility] Comment on above: Performed By: #### L 501.9520, L500.4050, L501.5200, L100.0100 #### [facility] [address] [place], [address] Hemoglobin (Bld) [Mass/Vol] 13.7 g/dL Normal 13.0-16.5 [facility] Comment on above: Performed By: #### L 501.9520, L500.4050, L501.5200, L100.0100 #### [facility] [address] [place], [address] IG% 0.200 Normal 0.0-0.9 [facility] Comment on above: Result Comment: IG% - Immature Granulocytes (promyelocytes, myelocytes and metamyelocytes) > 1% indicates that a LEFT SHIFT is Present. Performed By: #### L 501.9520, L500.4050, L501.5200, L100.0100 #### [facility] [address] [place], [address] Lymphocytes/100 WBC (Bld) 18.4 % Low 19-41 [facility] Comment on above: Performed By: #### L 501.9520, L500.4050, L501.5200, L100.0100 #### [facility] [address] [place], [address] MCH (RBC) [Entitic mass] 30.9 pg Normal 27.0-32.0 [facility] Comment on above: Performed By: #### L 501.9520, L500.4050, L501.5200, L100.0100 #### [facility] [address] [place], [address] MCHC (RBC) [Mass/Vol] 33.1 g/dL Normal 32-36 [facility] Comment on above: Performed By: #### L 501.9520, L500.4050, L501.5200, L100.0100 #### [facility] [address] [place], [address] MCV (RBC) [Entitic vol] 93.2 fL Normal 80-94 [facility] Comment on above: Performed By: #### L 501.9520, L500.4050, L501.5200, L100.0100 #### [facility] [address] [place], [address] Monocytes/100 WBC (Bld) 6.5 % Normal 0-10 [facility] Comment on above: Performed By: #### L 501.9520, L500.4050, L501.5200, L100.0100 #### [facility] [address] [place], [address] Neutrophils/100 WBC (Bld) 71.4 % High 47-70 [facility] Comment on above: Performed By: #### L 501.9520, L500.4050, L501.5200, L100.0100 #### [facility] [address] [place], [address] Nucleated RBC (Bld) [#/Vol] 0 10*3/uL Normal 0-5 [facility] Comment on above: Performed By: #### L 501.9520, L500.4050, L501.5200, L100.0100 #### [facility] [address] [place], [address] Platelet mean volume (Bld) [Entitic vol] 10.5 fL Normal 6.2-12.0 [facility] Comment on above: Performed By: #### L 501.9520, L500.4050, L501.5200, L100.0100 #### [facility] [address] [place], [address] Platelets (Bld) [#/Vol] 250 10*3/uL Normal 150-450 [facility] Comment on above: Performed By: #### L 501.9520, L500.4050, L501.5200, L100.0100 #### [facility] [address] [place], [address] RBC (Bld) [#/Vol] 4.44 10*6/uL Low 4.6-6.2 [facility] Comment on above: Performed By: #### L 501.9520, L500.4050, L501.5200, L100.0100 #### [facility] [address] [place], [address] RDW SD 45.9 fl High 35.1-43.9 [facility] Comment on above: Performed By: #### L 501.9520, L500.4050, L501.5200, L100.0100 #### [facility] [address] [place], [address] WBC (Bld) [#/Vol] 8.2 10*3/uL Normal 4.4-11.[address] [facility] Comment on above: Performed By: #### L 501.9520, L500.4050, L501.5200, L100.0100 #### [facility] [address] [place], [address] Carbon dioxide, total [Moles /volume] in Central venous bloodOrdered By: Lena Melendez on 12-12-2024 CO2 [Moles/Vol] 22.3 mmol/L 21.0-32.0 [facility] Chloride assayOrdered By: Dago Melendez on 12-12-2024 Chloride [Moles/Vol] 106 mmol/L 98-108 [facility] Comprehensive Metabolic Prof ilon 12-12-2024 Albumin [Mass/Vol] 4.3 g/dL Normal 3.4-4.[address] [facility] Comment on above: Performed By: #### L 501.9520, L500.4050, L501.5200, L100.0100 #### [facility] [address] [place], [address] Albumin/Globulin [Mass ratio] 1.4 {ratio} Normal 0.9-2.4 [facility] Comment on above: Performed By: #### L 501.9520, L500.4050, L501.5200, L100.0100 #### [facility] [address] [place], [address] ALK PHOS 67 U/L Normal 40-129 [facility] Comment on above: Performed By: #### L 501.9520, L500.4050, L501.5200, L100.0100 #### [facility] [address] [place], [address] ALT [Catalytic activity/Vol] 17 U/L Normal <=46 [facility] Comment on above: Performed By: #### L 501.9520, L500.4050, L501.5200, L100.0100 #### [facility] [address] [place], [address] AST [Catalytic activity/Vol] 41 U/L High <=37 [facility] Comment on above: Performed By: #### L 501.9520, L500.4050, L501.5200, L100.0100 #### [facility] [address] [place], [address] Bilirubin [Mass/Vol] 0.27 mg/dL Normal 0.00-1.30 [facility] Comment on above: Performed By: #### L 501.9520, L500.4050, L501.5200, L100.0100 #### [facility] [address] [place], [address] BUN/CRE 21.8 RATIO High 10-20 [facility] Comment on above: Performed By: #### L [id number], L500.4050, L501.5200, L100.0100 #### [facility] [address] [place], [address] Calcium [Mass/Vol] 8.9 mg/dL Normal 7.6-11.[address] [facility] Comment on above: Performed By: #### L [id number], L500.4050, L501.5200, L100.0100 #### [facility] [address] [place], [address] Chloride [Moles/Vol] 106 mmol/L Normal 98-108 [facility] Comment on above: Performed By: #### L [id number], L500.4050, L501.5200, L100.0100 #### [facility] [address] [place], [address] CO2 [Moles/Vol] 22.3 mmol/L Normal 21.0-32.0 [facility] Comment on above: Performed By: #### L [id number], L500.4050, L501.5200, L100.0100 #### [facility] [address] [place], [address] Creatinine [Mass/Vol] 1.27 mg/dL High 0.70-1.20 [facility] Comment on above: Performed By: #### L 501.9520, L500.4050, L501.5200, L100.0100 #### [facility] [address] [place], [address] GAP 13 Normal 5-15 [facility] Comment on above: Performed By: #### L 501.9520, L500.4050, L501.5200, L100.0100 #### [facility] [address] [place], [address] GFR/1.73 sq M.predicted among non-blacks MDRD (S/P/Bld) [Vol rate/Area] 61 mL/min/{1.73_m2} Normal >60 [facility] Comment on above: Result Comment: mL/m in/1.73m2 CKD-EPI Creatinine Equation (2020) Performed By: #### L 501.9520, L500.4050, L501.5200, L100.0100 #### [facility] [address] [place], [address] Globulin (S) [Mass/Vol] 3.1 g/dL Normal 2.2-4.2 [facility] Comment on above: Performed By: #### L 501.9520, L500.4050, L501.5200, L100.0100 #### [facility] [address] [place], [address] Glucose [Mass/Vol] 147 mg/dL High 70-[address] [facility] Comment on above: Performed By: #### L 501.9520, L500.4050, L501.5200, L100.0100 #### [facility] [address] [place], [address] Potassium [Moles/Vol] 4.6 mmol/L Normal 3.3-5.1 [facility] Comment on above: Performed By: #### L 501.9520, L500.4050, L501.5200, L100.0100 #### [facility] [address] [place], [address] Sodium [Moles/Vol] 141 mmol/L Normal 133-[address] [facility] Comment on above: Performed By: #### L 501.9520, L500.4050, L501.5200, L100.0100 #### [facility] [address] [place], [address] T PROT 7.4 g/dL Normal 5.9-8.4 [facility] Comment on above: Performed By: #### L 501.9520, L500.4050, L501.5200, L100.0100 #### [facility] [address] [place], [address] Urea nitrogen [Mass/Vol] 28 mg/dL High 4-19 [facility] Comment on above: Performed By: #### L 501.9520, L500.4050, L501.5200, L100.0100 #### [facility] [address] [place], [address] Eosinophil percentageOrdered By: Markeln Beam on 12-12-2024 Eosinophils/100 WBC (Bld) 2.8 % 0-5 [facility] Erythrocyte distribution wid th ratioOrdered By: [facility] Beam on 12-12-2024 Erythrocyte distribution width (RBC) [Ratio] 13.5 % 11.6-14.6 [facility] Erythrocyte distribution wid th standard deviationOrdered By: [facility] Be[facility] on 12-12-2024 Erythrocyte distribution width (RBC) [Ratio] 45.9 fl High 35.1-43.9 [facility] Glomerular filtration rate ( GFR) estimation/1.73 sq m using serum, plasma, or whole bOrdered By: raman Beam on 12-12-2024 GFR/1.73 sq M.predicted among non-blacks MDRD (S/P/Bld) [Vol rate/Area] 61 mL/min/{1.73_m2} >60 [facility] Comment on above: mL/min/1.73m2 CKD-EP I Creatinine Equation (2020) Hematocrit Auto (Bld) [Volum e fraction]Ordered By: Markeln Beam on 12-12-2024 Hematocrit (Bld) [Volume fraction] 41.4 % 40-54 [facility] Hemoglobin measurementOrdere d By: Lena Melendez on 12-12-2024 Hemoglobin (Bld) [Mass/Vol] 13.7 g/dL 13.0-16.5 [facility] Immature granulocytes/100 WB C Auto (Bld)Ordered By: Lena Melendez on 12-12-2024 Immature granulocytes/100 WBC (Bld) 0.200 % 0.0-0.9 [facility] Comment on above: IG% - Immature Granu locytes (promyelocytes, myelocytes and metamyelocytes) > 1% indicates that a LEFT SHIFT is Present. Laboratory - Chemistry and C hemistry - challengeOrdered By: Lena Melendez on 12-12-2024 AST [Catalytic activity/Vol] 41 U/L High <38 [facility] MCV (mean corpuscular volume ) determinationOrdered By: Lena Melendez on 12-12-2024 MCV (RBC) [Entitic vol] 93.2 fL 80-94 [facility] Magnesiumon 12-12-2024 Magnesium [Mass/Vol] 2.2 mg/dL Normal 1.5-2.2 [facility] Comment on above: Performed By: #### L 501.9520, L500.4050, L501.5200, L100.0100 #### [facility] [address] [place], [address] Magnesium measurement (mass/ volume)Ordered By: nataleeeugenio Melendez on 12-12-2024 Magnesium (Unsp spec) [Mass/Vol] 2.2 mg/dL 1.5-2.2 [facility] Mean corpuscular hemoglobin (MCH) determinationOrdered By: [facility] on 12-12-2024 MCH (RBC) [Entitic mass] 30.9 pg 27.0-32.0 [facility] Mean corpuscular hemoglobin concentration (MCHC) determinationOrdered By: [facility] Beam on 12-12-2024 MCHC (RBC) [Mass/Vol] 33.1 g/dL 32-36 [facility] Mean platelet volume determi nationOrdered By: analy Beam on 12-12-2024 Platelet mean volume (Bld) [Entitic vol] 10.5 fL 6.2-12.0 [facility] Monocyte percentageOrdered B y: Lena Melendez on 12-12-2024 Monocytes/100 WBC (Bld) 6.5 % 0-10 [facility] Neutrophil percentageOrdered By: Lena Melendez on 12-12-2024 Neutrophils/100 WBC (Bld) 71.4 % High 47-70 [facility] Nucleated red blood cell per centageOrdered By: Lena Melendez on 12-12-2024 Nucleated RBC/100 WBC (Bld) [Ratio] 0 % 0-5 [facility] Platelet countOrdered By: Dago Melendez on 12-12-2024 Platelets (Bld) [#/Vol] 250 10*3/uL 150-450 [facility] Potassium measurement (mass/ volume)Ordered By: Lena Melendez on 12-12-2024 Potassium (Unsp spec) [Mass/Vol] 4.6 mmol/L 3.3-5.1 [facility] RBC Auto (Bld) [#/Vol]Ordere d By: Lena Melendez on 12-12-2024 RBC (Bld) [#/Vol] 4.44 10*6/uL Low 4.6-6.2 [facility] Serum creatinine measurement (mass/volume)Ordered By: Lena Melendez on 12-12-2024 Creatinine [Mass/Vol] 1.27 mg/dL High 0.70-1.20 [facility] Serum globulin measurementOr dered By: Lena Melendez on 12-12-2024 Globulin (S) [Mass/Vol] 3.1 g/dL 2.2-4.2 [facility] Serum glucose measurement (m ass/volume)Ordered By: Lena Melendez on 12-12-2024 Glucose [Mass/Vol] 147 mg/dL High 70-[address] [facility] Serum or plasma alanine schwartz otransferase (ALT) measurementOrdered By: Lena Melendez on 12-12-2024 ALT [Catalytic activity/Vol] 17 U/L <47 [facility] Serum or plasma albumin sid urement (mass/volume)Ordered By: Lena Melendez on 12-12-2024 Albumin [Mass/Vol] 4.3 g/dL 3.4-4.[address] [facility] Serum or plasma albumin/glob ulin mass ratioOrdered By: Lena Melendez on 12-12-2024 Albumin/Globulin [Mass ratio] 1.4 {ratio} 0.9-2.4 [facility] Serum or plasma alkaline carlton sphatase measurementOrdered By: Care[facility] Beam on 12-12-2024 ALP [Catalytic activity/Vol] 67 U/L 40-129 [facility] Serum or plasma calcium sid urement (mass/volume)Ordered By: Careylueugenio Beam on 12-12-2024 Calcium [Mass/Vol] 8.9 mg/dL 7.6-11.[address] [facility] Serum or plasma urea nitroge n measurement (mass/volume)Ordered By: Lena Beam on 12-12-2024 Urea nitrogen [Mass/Vol] 28 mg/dL High 4-19 [facility] Sodium levelOrdered By: Carey Melendez on 12-12-2024 Sodium [Moles/Vol] 141 mmol/L 133-[address] [facility] TSH DL <= 0.005 mIU/L QnOrde red By: Lena Melendez on 12-12-2024 TSH Qn 1.050 uIU/mL 0.300-4.200 [facility] Thyroid Stim Hormone (TSH)on 12-12-2024 TSH 1.050 uIU/mL Normal 0.300-4.200 [facility] Comment on above: Performed By: #### L 501.9520, L500.4050, L501.5200, L100.0100 #### [facility] [address] [place] [address]. [place], [address] Total proteinOrdered By: Leon Melendez on 12-12-2024 Protein [Mass/Vol] 7.4 g/dL 5.9-8.[address] [facility] White blood cell (WBC) count Ordered By: Lena Melendez on 12-12-2024 WBC (Bld) [#/Vol] 8.2 10*3/uL 4.4-11.[address] [facility] PSA,Total- Diagnosticon 11-07 PSA, DIAGNOSTIC 7.65 ng/mL High 0.00-4.00 [facility] Comment on above: Result Comment: This test was performed using the [employer] tPSA method. Measured values of a patient??sample can vary depending on the testing procedure used. PSA values determined on patient samples by different testing procedures cannot be used interchangeably. If there is a change in PSA assays while monitoring therapy, sequential testing should be performed to confirm baseline values. Performed By: #### L 501.9520, L500.4050, L501.5200, L100.0100 #### [facility] [address] [place], [address] Absolute lymphocyte countOrd ered By: bulun Beam on 10-29-2024 Lymphocytes Auto (Unsp spec) [#/Vol] 2.17 10*3/uL 0.83-4.51 [facility] Absolute neutrophil countOrd ered By: bulun Beam on 10-29-2024 Neutrophils (Bld) [#/Vol] 4.2 10*3/uL 2.0-7.7 [facility] Anion gap in Serum or Plasma Ordered By: bulun Beam on 10-29-2024 Anion gap [Moles/Vol] 12 mmol/L 5-15 [facility] Automated lymphocyte count a s percentage of total leukocytesOrdered By: bulun Beam on 10-29-2024 Lymphocytes/100 WBC Auto (Unsp spec) 29.7 % 19-41 [facility] BUN/creatinine ratioOrdered By: bulun Beam on 10-29-2024 Urea nitrogen/Creatinine [Mass ratio] 29.3 mg/mg High 10-20 [facility] Basophil percentageOrdered B y: Zebulun Beam on 10-29-2024 Basophils/100 WBC (Bld) 0.7 % 0-1 [facility] Bilirubin, totalOrdered By: bulun Beam on 10-29-2024 Bilirubin [Mass/Vol] 0.43 mg/dL 0.00-1.30 [facility] CBC W/Diff, Automatedon 10-09 Absolute Lymph 2.17 X10 3/uL Normal 0.83-4.51 [facility] Comment on above: Performed By: #### L 502.0500, L100.0100, L500.4100, L500.4050, L501.9520 #### [facility] [address] [place], [address] Absolute Neut 4.2 X10 3/uL Normal 2.0-7.7 [facility] Comment on above: Performed By: #### L 502.0500, L100.0100, L500.4100, L500.4050, L501.9520 #### [facility] [address] [place], [address] Basophils/100 WBC (Bld) 0.7 % Normal 0-1 [facility] Comment on above: Performed By: #### L 502.0500, L100.0100, L500.4100, L500.4050, L501.9520 #### [facility] [address] [place], [address] Eosinophils/100 WBC (Bld) 4.5 % Normal 0-5 [facility] Comment on above: Performed By: #### L 502.0500, L100.0100, L500.4100, L500.4050, L501.9520 #### [facility] [address] [place], [address] Erythrocyte distribution width (RBC) [Ratio] 13.0 % Normal 11.6-14.6 [facility] Comment on above: Performed By: #### L 502.0500, L100.0100, L500.4100, L500.4050, L501.9520 #### [facility] [address] [place], [address] Hematocrit (Bld) [Volume fraction] 41.2 % Normal 40-54 [facility] Comment on above: Performed By: #### L 502.0500, L100.0100, L500.4100, L500.4050, L501.9520 #### [facility] [address] [place], [address] Hemoglobin (Bld) [Mass/Vol] 13.7 g/dL Normal 13.0-16.5 [facility] Comment on above: Performed By: #### L 502.0500, L100.0100, L500.4100, L500.4050, L501.9520 #### [facility] [address] [place], [address] IG% 0.100 Normal 0.0-0.9 [facility] Comment on above: Result Comment: IG% - Immature Granulocytes (promyelocytes, myelocytes and metamyelocytes) > 1% indicates that a LEFT SHIFT is Present. Performed By: #### L 502.0500, L100.0100, L500.4100, L500.4050, L501.9520 #### [facility] [address] [place], [address] Lymphocytes/100 WBC (Bld) 29.7 % Normal 19-41 [facility] Comment on above: Performed By: #### L 502.0500, L100.0100, L500.4100, L500.4050, L501.9520 #### [facility] [address] [place], [address] MCH (RBC) [Entitic mass] 30.6 pg Normal 27.0-32.0 [facility] Comment on above: Performed By: #### L 502.0500, L100.0100, L500.4100, L500.4050, L501.9520 #### [facility] [address] [place], [address] MCHC (RBC) [Mass/Vol] 33.3 g/dL Normal 32-36 [facility] Comment on above: Performed By: #### L 502.0500, L100.0100, L500.4100, L500.4050, L501.9520 #### [facility] [address] [place], [address] MCV (RBC) [Entitic vol] 92.2 fL Normal 80-94 [facility] Comment on above: Performed By: #### L 502.0500, L100.0100, L500.4100, L500.4050, L501.9520 #### [facility] [address] [place], [address] Monocytes/100 WBC (Bld) 8.1 % Normal 0-10 [facility] Comment on above: Performed By: #### L 502.0500, L100.0100, L500.4100, L500.4050, L501.9520 #### [facility] [address] [place], [address] Neutrophils/100 WBC (Bld) 56.9 % Normal 47-70 [facility] Comment on above: Performed By: #### L 502.0500, L100.0100, L500.4100, L500.4050, L501.9520 #### [facility] [address] [place], [address] Nucleated RBC (Bld) [#/Vol] 0 10*3/uL Normal 0-5 [facility] Comment on above: Performed By: #### L 502.0500, L100.0100, L500.4100, L500.4050, L501.9520 #### [facility] [address] [place], [address] Platelet mean volume (Bld) [Entitic vol] 10.5 fL Normal 6.2-12.0 [facility] Comment on above: Performed By: #### L 502.0500, L100.0100, L500.4100, L500.4050, L501.9520 #### [facility] [address] [place], [address] Platelets (Bld) [#/Vol] 254 10*3/uL Normal 150-450 [facility] Comment on above: Performed By: #### L 502.0500, L100.0100, L500.4100, L500.4050, L501.9520 #### [facility] [address] [place], [address] RBC (Bld) [#/Vol] 4.47 10*6/uL Low 4.6-6.2 [facility] Comment on above: Performed By: #### L 502.0500, L100.0100, L500.4100, L500.4050, L501.9520 #### [facility] [address] [place], [address] RDW SD 43.9 fl Normal 35.1-43.9 [facility] Comment on above: Performed By: #### L 502.0500, L100.0100, L500.4100, L500.4050, L501.9520 #### [facility] [address] [place], [address] WBC (Bld) [#/Vol] 7.3 10*3/uL Normal 4.4-11.[address] [facility] Comment on above: Performed By: #### L 502.0500, L100.0100, L500.4100, L500.4050, L501.9520 #### [facility] [address] [place], [address] Calculated very low density lipoprotein (VLDL) cholesterol measurementOrdered By: Dagobulun Beam on 10-29-2024 Calculated very low density lipoprotein (VLDL) cholesterol measurement 34 mg/dL 5-40 [facility] Carbon dioxide, total [Moles /volume] in Central venous bloodOrdered By: Zebulun Beam on 10-29-2024 CO2 [Moles/Vol] 22.9 mmol/L 21.0-32.0 [facility] Chloride assayOrdered By: Dago Melendez on 10-29-2024 Chloride [Moles/Vol] 103 mmol/L 98-108 [facility] Comprehensive Metabolic Prof ilon 10-29-2024 Albumin [Mass/Vol] 4.4 g/dL Normal 3.4-4.[address] [facility] Comment on above: Performed By: #### L 502.0500, L100.0100, L500.4100, L500.4050, L501.9520 #### [facility] [address] [place], [address] Albumin/Globulin [Mass ratio] 1.3 {ratio} Normal 0.9-2.4 [facility] Comment on above: Performed By: #### L 502.0500, L100.0100, L500.4100, L500.4050, L501.9520 #### [facility] [address] [place], [address] ALK PHOS 65 U/L Normal 40-129 [facility] Comment on above: Performed By: #### L 502.0500, L100.0100, L500.4100, L500.4050, L501.9520 #### [facility] [address] [place], [address] ALT [Catalytic activity/Vol] 18 U/L Normal <=46 [facility] Comment on above: Performed By: #### L 502.0500, L100.0100, L500.4100, L500.4050, L501.9520 #### [facility] [address] [place], [address] AST [Catalytic activity/Vol] 44 U/L High <=37 [facility] Comment on above: Performed By: #### L 502.0500, L100.0100, L500.4100, L500.4050, L501.9520 #### [facility] [address] [place], [address] Bilirubin [Mass/Vol] 0.43 mg/dL Normal 0.00-1.30 [facility] Comment on above: Performed By: #### L 502.0500, L100.0100, L500.4100, L500.4050, L501.9520 #### [facility] [address] [place], [address] BUN/CRE 29.3 RATIO High 10-20 [facility] Comment on above: Performed By: #### L 502.0500, L100.0100, L500.4100, L500.4050, L501.9520 #### [facility] [address] [place], [address] Calcium [Mass/Vol] 9.4 mg/dL Normal 7.6-11.[address] [facility] Comment on above: Performed By: #### L 502.0500, L100.0100, L500.4100, L500.4050, L501.9520 #### [facility] [address] [place], [address] Chloride [Moles/Vol] 103 mmol/L Normal 98-108 [facility] Comment on above: Performed By: #### L 502.0500, L100.0100, L500.4100, L500.4050, L501.9520 #### [facility] [address] [place], [address] CO2 [Moles/Vol] 22.9 mmol/L Normal 21.0-32.0 [facility] Comment on above: Performed By: #### L 502.0500, L100.0100, L500.4100, L500.4050, L501.9520 #### [facility] [address] [place], [address] Creatinine [Mass/Vol] 1.10 mg/dL Normal 0.70-1.20 [facility] Comment on above: Performed By: #### L 502.0500, L100.0100, L500.4100, L500.4050, L501.9520 #### [facility] [address] [place], [address] GAP 12 Normal 5-15 [facility] Comment on above: Performed By: #### L 502.0500, L100.0100, L500.4100, L500.4050, L501.9520 #### [facility] [address] [place], [address] GFR/1.73 sq M.predicted among non-blacks MDRD (S/P/Bld) [Vol rate/Area] 73 mL/min/{1.73_m2} Normal >60 [facility] Comment on above: Result Comment: mL/m in/1.73m2 CKD-EPI Creatinine Equation (2020) Performed By: #### L 502.0500, L100.0100, L500.4100, L500.4050, L501.9520 #### [facility] [address] [place], [address] Globulin (S) [Mass/Vol] 3.3 g/dL Normal 2.2-4.2 [facility] Comment on above: Performed By: #### L 502.0500, L100.0100, L500.4100, L500.4050, L501.9520 #### [facility] [address] [place], [address] Glucose [Mass/Vol] 121 mg/dL High 70-[address] [facility] Comment on above: Performed By: #### L 502.0500, L100.0100, L500.4100, L500.4050, L501.9520 #### [facility] [address] [place], [address] Potassium [Moles/Vol] 5.0 mmol/L Normal 3.3-5.1 [facility] Comment on above: Performed By: #### L 502.0500, L100.0100, L500.4100, L500.4050, L501.9520 #### [facility] [address] [place], [address] Sodium [Moles/Vol] 138 mmol/L Normal 133-[address] [facility] Comment on above: Performed By: #### L 502.0500, L100.0100, L500.4100, L500.4050, L501.9520 #### [facility] [address] [place], [address] T PROT 7.7 g/dL Normal 5.9-8.4 [facility] Comment on above: Performed By: #### L 502.0500, L100.0100, L500.4100, L500.4050, L501.9520 #### [facility] [address] [place], [address] Urea nitrogen [Mass/Vol] 32 mg/dL High 4-19 [facility] Comment on above: Performed By: #### L 502.0500, L100.0100, L500.4100, L500.4050, L501.9520 #### [facility] [address] [place], [address] Eosinophil percentageOrdered By: Lena Melendez on 10-29-2024 Eosinophils/100 WBC (Bld) 4.5 % 0-5 [facility] Erythrocyte distribution wid th ratioOrdered By: analy Beam on 10-29-2024 Erythrocyte distribution width (RBC) [Ratio] 13.0 % 11.6-14.6 [facility] Erythrocyte distribution wid th standard deviationOrdered By: Lena Beam on 10-29-2024 Erythrocyte distribution width (RBC) [Ratio] 43.9 fl 35.1-43.9 [facility] Glomerular filtration rate ( GFR) estimation/1.73 sq m using serum, plasma, or whole bOrdered By: Lena Melendez on 10-29-2024 GFR/1.73 sq M.predicted among non-blacks MDRD (S/P/Bld) [Vol rate/Area] 73 mL/min/{1.73_m2} >60 [facility] Comment on above: mL/min/1.73m2 CKD-EP I Creatinine Equation (2020) Hematocrit Auto (Bld) [Volum e fraction]Ordered By: Lena Melendez on 10-29-2024 Hematocrit (Bld) [Volume fraction] 41.2 % 40-54 [facility] Hemoglobin measurementOrdere d By: Lena Melendez on 10-29-2024 Hemoglobin (Bld) [Mass/Vol] 13.7 g/dL 13.0-16.5 [facility] Immature granulocytes/100 WB C Auto (Bld)Ordered By: analy Melendez on 10-29-2024 Immature granulocytes/100 WBC (Bld) 0.100 % 0.0-0.9 [facility] Comment on above: IG% - Immature Granu locytes (promyelocytes, myelocytes and metamyelocytes) > 1% indicates that a LEFT SHIFT is Present. LDL calc ser/plasOrdered By: Lena Melendez on 10-29-2024 Cholesterol in LDL [Mass/Vol] 115 mg/dL [facility] Comment on above: Reczludtaw=288-280 m g/dL & Higher Rafa=982 mg/dL or greater Laboratory - Chemistry and C hemistry - challengeOrdered By: Lena Melendez on 10-29-2024 AST [Catalytic activity/Vol] 44 U/L High <38 [facility] Lipid Profileon 10-29-2024 CHOL:HDL 5.75 Normal [facility] Comment on above: Performed By: #### L 502.0500, L100.0100, L500.4100, L500.4050, L501.9520 #### [facility] [address] [place], [address] Cholesterol [Mass/Vol] 180 mg/dL Normal <=[address] [facility] Comment on above: Result Comment: Chol esterol level, Desirable <200 mg/dL Borderline high cholesterol 200-239 mg/dL High cholesterol >=240 mg/dL Recommendations of the NCEP Adult Treatment Panel for the following risk-cutoff thresholds for the [place] population. Performed By: #### L 502.0500, L100.0100, L500.4100, L500.4050, L501.9520 #### [facility] [address] [place], [address] Cholesterol in HDL [Mass/Vol] 31 mg/dL Low [facility] Comment on above: Result Comment: Gifty onal Cholesterol Education Program (NCEP) guidelines: <40 mg/dL: Low HDL-cholesterol (major risk factor for CHD) >= 60 mg/dL: High HDL-cholesterol (negative risk factor for CHD) HDL-cholesterol is affected by a number of factors, e.g. smoking, exercise, hormones, sex and age. Performed By: #### L 502.0500, L100.0100, L500.4100, L500.4050, L501.9520 #### [facility] [address] [place], [address] Cholesterol in LDL [Mass/Vol] 115 mg/dL Normal [facility] Comment on above: Result Comment: Bord ienagr=428-555 mg/dL Higher Uznv=094 mg/dL or greater Performed By: #### L 502.0500, L100.0100, L500.4100, L500.4050, L501.9520 #### [facility] [address] [place], [address] Cholesterol in VLDL [Mass/Vol] 34 mg/dL Normal 5-40 [facility] Comment on above: Performed By: #### L 502.0500, L100.0100, L500.4100, L500.4050, L501.9520 #### [facility] [address] [place], [address] Triglyceride [Mass/Vol] 169 mg/dL Normal [facility] Comment on above: Result Comment: The drugs N-Acetylcysteine and Metamizole may falsely depress this assay. Normal range: <150 mg/dL Borderline High: 150-199 mg/dL High: 200-499 mg/dL Very High: >500 mg/dL Performed By: #### L 502.0500, L100.0100, L500.4100, L500.4050, L501.9520 #### [facility] [address] [place], [place], [address] MCV (mean corpuscular volume ) determinationOrdered By: Zebulun Beam on 10-29-2024 MCV (RBC) [Entitic vol] 92.2 fL 80-94 [facility] Mean corpuscular hemoglobin (MCH) determinationOrdered By: Zebulun Beam on 10-29-2024 MCH (RBC) [Entitic mass] 30.6 pg 27.0-32.0 [facility] Mean corpuscular hemoglobin concentration (MCHC) determinationOrdered By: bulun Beam on 10-29-2024 MCHC (RBC) [Mass/Vol] 33.3 g/dL 32-36 [facility] Mean platelet volume determi nationOrdered By: Zebulun Beam on 10-29-2024 Platelet mean volume (Bld) [Entitic vol] 10.5 fL 6.2-12.0 [facility] Microalbumin,Random Urineon 10-29-2024 MICROALBUMIN,UR < 12.0 Normal NO RANGE EST. [facility] Comment on above: Performed By: #### L 502.0500, L100.0100, L500.4100, L500.4050, L501.9520 #### [facility] [address] [place], [place], [id number] Monocyte percentageOrdered B y: Zebulun Beam on 10-29-2024 Monocytes/100 WBC (Bld) 8.1 % 0-10 [facility] Neutrophil percentageOrdered By: Zebulun Beam on 10-29-2024 Neutrophils/100 WBC (Bld) 56.9 % 47-70 [facility] Nucleated red blood cell per centageOrdered By: Zebulun Beam on 04-22-2025 Nucleated RBC/100 WBC (Bld) [Ratio] 0 % 0-5 [facility] Platelet countOrdered By: Dago Melendez on 10-29-2024 Platelets (Bld) [#/Vol] 254 10*3/uL 150-450 [facility] Potassium measurement (mass/ volume)Ordered By: Lena Melendez on 10-29-2024 Potassium (Unsp spec) [Mass/Vol] 5.0 mmol/L 3.3-5.1 [facility] RBC Auto (Bld) [#/Vol]Ordere d By: Lena Melendez on 10-29-2024 RBC (Bld) [#/Vol] 4.47 10*6/uL Low 4.6-6.2 [facility] Screening total cholesterol/ high density lipoprotein (HDL) cholesterol ratioOrdered By: Lena Melendez on 10-29-2024 Cholesterol.total/Kim sterol in HDL [Mass ratio] 5.75 {ratio} [facility] Serum creatinine measurement (mass/volume)Ordered By: Lena Melendez on 10-29-2024 Creatinine [Mass/Vol] 1.10 mg/dL 0.70-1.20 [facility] Serum globulin measurementOr dered By: Lena Melendez on 10-29-2024 Globulin (S) [Mass/Vol] 3.3 g/dL 2.2-4.2 [facility] [place] Serum glucose measurement (m ass/volume)Ordered By: Lena Melendez on 10-29-2024 Glucose [Mass/Vol] 121 mg/dL High 70-[address] [facility] Serum or plasma alanine schwartz otransferase (ALT) measurementOrdered By: Lena Melendez on 10-29-2024 ALT [Catalytic activity/Vol] 18 U/L <47 [facility] Serum or plasma albumin sid urement (mass/volume)Ordered By: Lena Melendez on 10-29-2024 Albumin [Mass/Vol] 4.4 g/dL 3.4-4.[address] [facility] Serum or plasma albumin/glob ulin mass ratioOrdered By: Lena Melendez on 10-29-2024 Albumin/Globulin [Mass ratio] 1.3 {ratio} 0.9-2.4 [facility] Serum or plasma alkaline carlton sphatase measurementOrdered By: Lena Melendez on 10-29-2024 ALP [Catalytic activity/Vol] 65 U/L 40-129 [facility] Serum or plasma calcium sid urement (mass/volume)Ordered By: nataleeeugenio Melendez on 10-29-2024 Calcium [Mass/Vol] 9.4 mg/dL 7.6-11.[address] [facility] Serum or plasma cholesterol in HDL measurement (mass/volume)Ordered By: Lena Melendez on 10-29-2024 Cholesterol in HDL [Mass/Vol] 31 mg/dL Low >40 [facility] Comment on above: National Cholesterol Education Program (NCEP) guidelines:<40 mg/dL: Low HDL-cholesterol (major risk factor for CHD)>= 60 mg/dL: High HDL-cholesterol (negative risk factor for CHD)HDL-cholesterol is affected by a number of factors, e.g. smoking, exercise, hormones, sex and age. Serum or plasma cholesterol measurement (mass/volume)Ordered By: Lena Melendez on 10-29-2024 Cholesterol [Mass/Vol] 180 mg/dL <[address] [facility] Comment on above: Cholesterol level, D esirable <200 mg/dLBorderline high cholesterol 200-239 mg/dLHigh cholesterol >=240 mg/dLRecommendations of the NCEP Adult Treatment Panel for the following risk-cutoff thresholds for the [place] population. Serum or plasma urea nitroge n measurement (mass/volume)Ordered By: Lena Melendez on 10-29-2024 Urea nitrogen [Mass/Vol] 32 mg/dL High 4-19 [facility] Sodium levelOrdered By: Carey Melendez on 10-29-2024 Sodium [Moles/Vol] 138 mmol/L 133-[address] [facility] TSH DL <= 0.005 mIU/L QnOrde red By: Lena Melendez on 10-29-2024 TSH Qn 1.200 uIU/mL 0.300-4.200 [facility] Thyroid Stim Hormone (TSH)on 10-29-2024 TSH 1.200 uIU/mL Normal 0.300-4.200 [facility] Comment on above: Performed By: #### L 502.0500, L100.0100, L500.4100, L500.4050, L501.9520 #### [facility] [address] [place], [address] Total proteinOrdered By: Leon Melendez on 10-29-2024 Protein [Mass/Vol] 7.7 g/dL 5.9-8.[address] [facility] Triglycerides measurementOrd ered By: Lena Melendez on 10-29-2024 Triglyceride [Mass/Vol] 169 mg/dL <199 [facility] [place] Comment on above: The drugs N-Acetylcy steine and Metamizole may falsely depress this assay. Normal range: <150 mg/dLBorderline High: 150-199 mg/dLHigh: 200-499 mg/dLVery High: >500 mg/dL Urine albumin measurement wi detection limit of 20 mg/L or less (mass/volume)Ordered By: Lena Melendez on 10-29-2024 Albumin DL <= 20 mg/L (U) [Mass/Vol] < 12.0 mg/L NO RANGE EST. [facility] White blood cell (WBC) count Ordered By: Lena Melendez on 10-29-2024 WBC (Bld) [#/Vol] 7.3 10*3/uL 4.4-11.[address] [facility] PSA,Total- Diagnosticon 05-10 PSA, DIAGNOSTIC 8.58 ng/mL High 0.0-4.0 [facility] Comment on above: Result Comment: This test was performed using the TPSA assay method for the [employer] chemistry system. Values obtained with different assay methods cannot be used interchangably. When changing PSA assays in the course of monitoring a patient, additional sequential testing should be carried out to confirm baseline values. Performed By: #### L 501.9520, L500.4050, L501.5200, L100.0100 #### [facility] [address] [place], [address] CBC panel Auto (Bld)on 07-25 Erythrocyte distribution width (RBC) [Ratio] 12.4 % Normal 11.5-15.0 [facility] Comment on above: Order Comment: Speci men Type: BLOOD SPECIMEN Ordering Facility: [facility] Address: [address] [place] [address] Performed By: #### 5 8410-2 #### [facility] CLIA [id number] [address] [place] [address] [place] Hematocrit (Bld) [Volume fraction] 43.3 % Normal 39.0-51.0 [facility] Comment on above: Order Comment: Speci men Type: BLOOD SPECIMEN Ordering Facility: [facility] Address: [address] [place] [address] Performed By: #### 5 8410-2 #### [facility] CLIA [id number] [address] [place] [address] [place] Hemoglobin (Bld) [Mass/Vol] 14.4 g/dL Normal 13.0-17.0 [facility] Comment on above: Order Comment: Speci men Type: BLOOD SPECIMEN Ordering Facility: [facility] Address: [address] [place] [address] Performed By: #### 5 8410-2 #### [facility] CLIA [id number] [address] [place] [address] [place] MCH (RBC) [Entitic mass] 30.8 pg Normal 26.0-34.0 [facility] Comment on above: Order Comment: Speci men Type: BLOOD SPECIMEN Ordering Facility: [facility] Address: [address] [place] [address] Performed By: #### 5 8410-2 #### [facility] CLIA [id number] [address] [place] [address] [place] MCHC (RBC) [Mass/Vol] 33.3 g/dL Normal 30.5-36.0 [facility] Comment on above: Order Comment: Speci men Type: BLOOD SPECIMEN Ordering Facility: [facility] Address: [address] [place] [address] Performed By: #### 5 8410-2 #### [facility] CLIA [id number] [address] [place] [address] [place] MCV (RBC) [Entitic vol] 92.7 fL Normal 80.0-100.0 [facility] Comment on above: Order Comment: Speci men Type: BLOOD SPECIMEN Ordering Facility: [facility] Address: [address] [place] [address] Performed By: #### 5 8410-2 #### [facility] CLIA [id number] [address] [place] [address] [place] Nucleated RBC (Bld) [#/Vol] 10*3/uL Normal <0.01 [facility] Comment on above: Order Comment: Speci men Type: BLOOD SPECIMEN Ordering Facility: [facility] Address: [address] [place] [address] Performed By: #### 5 8410-2 #### [facility] CLIA [id number] [address] [place] [address] [place] Platelet mean volume (Bld) [Entitic vol] 10.7 fL Normal 9.0-12.7 [facility] Comment on above: Order Comment: Speci men Type: BLOOD SPECIMEN Ordering Facility: [facility] Address: [address] [place] [address] Performed By: #### 5 8410-2 #### [facility] CLIA [id number] [address] [place] [address] [place] Platelets (Bld) [#/Vol] 259 10*3/uL Normal 150-400 [facility] Comment on above: Order Comment: Speci men Type: BLOOD SPECIMEN Ordering Facility: [facility] Address: [address] [place] [address] Performed By: #### 5 8410-2 #### [facility] CLIA [id number] [address] [place] [id number] [place] RBC (Bld) [#/Vol] 4.67 10*6/uL Normal 4.20-6.[address] [facility] Comment on above: Order Comment: Speci men Type: BLOOD SPECIMEN Ordering Facility: [facility] Address: [address] [place] [address] Performed By: #### 5 8410-2 #### [facility] CLIA [id number] [facility] [place] [id number] [place] WBC (Bld) [#/Vol] 8.01 10*3/uL Normal 3.70-11.[address] [facility] Comment on above: Order Comment: Speci men Type: BLOOD SPECIMEN Ordering Facility: [facility] Address: [address] [place] [address] Performed By: #### 5 8410-2 #### [facility] CLIA [id number] [address] [place] [address] [place] Comprehensive metabolic 2000 panelon 07-25-2023 Albumin [Mass/Vol] 4.4 g/dL Normal 3.9-4.9 [facility] Comment on above: Order Comment: Speci men Type: BLOOD SPECIMEN Ordering Facility: [facility] Address: [address] [place] [address] Performed By: #### 2 4323-8, 86194-7 #### [facility] CLIA [id number] [address] [place] [address] [place] ALP [Catalytic activity/Vol] 62 U/L Normal 38-113 [facility] Comment on above: Order Comment: Speci men Type: BLOOD SPECIMEN Ordering Facility: [facility] Address: [address] [place] [address] Performed By: #### 2 4323-8, 65317-6 #### [facility] CLIA [id number] [address] [place], [place] [id number] [place] ALT [Catalytic activity/Vol] 25 U/L Normal 10-54 [facility] Comment on above: Order Comment: Speci men Type: BLOOD SPECIMEN Ordering Facility: [facility] Address: [address] [place] [address], [place] [address] Performed By: #### 2 4323-8, 59283-3 #### [facility] CLIA [id number] [address] [place] [address] [place] Anion gap [Moles/Vol] 11 mmol/L Normal 9-18 [facility] Comment on above: Order Comment: Speci men Type: BLOOD SPECIMEN Ordering Facility: [facility] Address: [address] [place] [address], [place] [address] Performed By: #### 2 4323-8, 15518-8 #### [facility] CLIA [id number] [address] [place] [address] [place] AST [Catalytic activity/Vol] 44 U/L High 14-40 [facility] Comment on above: Order Comment: Speci men Type: BLOOD SPECIMEN Ordering Facility: [facility] Address: [address] [place] [address], [place] [address] Performed By: #### 2 4323-8, 51415-3 #### [facility] CLIA [id number] [address] [place] [address] [place] Bilirubin [Mass/Vol] 0.5 mg/dL Normal 0.2-1.3 [facility] Comment on above: Order Comment: Speci men Type: BLOOD SPECIMEN Ordering Facility: [facility] Address: [address] [place] [address], [place] [id number] Performed By: #### 2 4323-8, 17512-9 #### [facility] CLIA [id number] [address] [place] [id number] [place] Calcium [Mass/Vol] 9.6 mg/dL Normal 8.5-10.2 [facility] Comment on above: Order Comment: Speci men Type: BLOOD SPECIMEN Ordering Facility: [facility] Address: [address] [place] [address], [place] [address] Performed By: #### 2 4323-8, 31213-9 #### [facility] CLIA [id number] [address] [place] [address] [place] Chloride [Moles/Vol] 102 mmol/L Normal 97-105 [facility] Comment on above: Order Comment: Speci men Type: BLOOD SPECIMEN Ordering Facility: [facility] Address: [address] [place] [address], [place] [address] Performed By: #### 2 4323-8, 16918-7 #### [facility] CLIA [id number] [address] [place] [address] [place] CO2 [Moles/Vol] 25 mmol/L Normal 22-30 [facility] Comment on above: Order Comment: Speci men Type: BLOOD SPECIMEN Ordering Facility: [facility] Address: [address] [place] [address], [place] [address] Performed By: #### 2 4323-8, 85660-7 #### [facility] CLIA [id number] [address] [place] [address] [place] Creatinine [Mass/Vol] 1.01 mg/dL Normal 0.73-1.22 [facility] Comment on above: Order Comment: Speci men Type: BLOOD SPECIMEN Ordering Facility: [facility] Address: [address] [place] [address], [place] [address] Performed By: #### 2 4323-8, 46605-5 #### [facility] CLIA [id number] [address] [place] [address] [place] Creatinine and Glomerular filtration rate.predicted panel (S/P/Bld) 82 mL/min/1.73m??? Normal >=60 [facility] Comment on above: Order Comment: Speci men Type: BLOOD SPECIMEN Ordering Facility: [facility] Address: [address] [place] [address], [place] [address] Result Comment: Megha mated Glomerular Filtration Rate (eGFR) is calculated using the 2020 CKD-EPI creatinine equation. This equation utilizes serum creatinine, sex, and age as parameters. The creatinine assay has traceable calibration to isotope dilution-mass spectrometry. Refer to KDIGO guidelines for clinical interpretation. In patients with unstable renal function, e.g. those with acute kidney injury, the eGFR may not accurately reflect actual GFR. Performed By: #### 2 4323-8, 19622-0 #### [facility] CLIA [id number] [address] [place] [address] [place] Glucose [Mass/Vol] 169 mg/dL High 74-99 [facility] Comment on above: Order Comment: Speci men Type: BLOOD SPECIMEN Ordering Facility: [facility] Address: [address] [place] [address], [place] [address] Result Comment: The [place] Diabetes Association (ADA) provides guidance for cutoff values for fasting glucose and random glucose. The ADA defines fasting as no caloric intake for at least 8 hours. Fasting plasma glucose results between 100 to 125 mg/dL indicate increased risk for diabetes (prediabetes). Fasting plasma glucose results greater than or equal to 126 mg/dL meet the criteria for diagnosis of diabetes. In the absence of unequivocal hyperglycemia, results should be confirmed by repeat testing. In a patient with classic symptoms of hyperglycemia or hyperglycemic crisis, random plasma glucose results greater than or equal to 200 mg/dL meet the criteria for diagnosis of diabetes. Reference: Standards of Medical Care in Diabetes 2016, [place] Diabetes Association. Diabetes Care. 2016.39(Suppl 1). Performed By: #### 2 4323-8, 04993-0 #### [facility] CLIA [id number] [facility] [place] [address] [place] Potassium [Moles/Vol] 4.9 mmol/L Normal 3.7-5.1 [facility] Comment on above: Order Comment: Speci men Type: BLOOD SPECIMEN Ordering Facility: [facility] Address: [address] [place] [address], [place] [address] Performed By: #### 2 4323-8, 86097-2 #### [facility] CLIA [id number] [address] [place] [address] [place] Protein [Mass/Vol] 7.2 g/dL Normal 6.3-8.0 [facility] Comment on above: Order Comment: Speci men Type: BLOOD SPECIMEN Ordering Facility: [facility] Address: [address] [place] [address], [place] [address] Performed By: #### 2 4323-8, 52698-8 #### [facility] CLIA [id number] [address] [place] [address] [place] Sodium [Moles/Vol] 138 mmol/L Normal 136-144 [facility] Comment on above: Order Comment: Speci men Type: BLOOD SPECIMEN Ordering Facility: [facility] Address: [address] [place] [address], [place] [address] Performed By: #### 2 4323-8, 63766-2 #### [facility] CLIA [id number] [address] [place] [address] [place] Urea nitrogen [Mass/Vol] 29 mg/dL High 9-24 [facility] Comment on above: Order Comment: Speci men Type: BLOOD SPECIMEN Ordering Facility: [facility] Address: [address] [place] [address], [place] [address] Performed By: #### 2 4323-8, 89641-7 #### [facility] CLIA [id number] [address] [place] [id number] [place] Lipid 1996 panelon 4 Cholesterol [Mass/Vol] 182 mg/dL Normal <200 [facility] Comment on above: Order Comment: Speci men Type: BLOOD SPECIMEN Ordering Facility: [facility] Address: [address] [place] [address], [place] [address] Result Comment: <200 mg/dL, Desirable 200-239 mg/dL, Borderline high >239 mg/dL, High Performed By: #### 2 4323-8, 86330-0 #### [facility] CLIA [id number] [address] [place] [address] [place] Cholesterol in HDL [Mass/Vol] 37 mg/dL Low >39 [facility] Comment on above: Order Comment: Sheldon kavya Type: BLOOD SPECIMEN Ordering Facility: [facility] Address: [address] [place] [address], [place] [address] Result Comment: 40-5 9 mg/dL, Acceptable >59 mg/dL, High: Negative risk factor for coronary heart disease <40 mg/dL, Low: Positive risk factor for coronary heart disease Performed By: #### 2 4323-8, 83398-5 #### [facility] CLIA [id number] [address] [place] Cholesterol in LDL [Mass/Vol] 118 mg/dL High <100 [facility] Comment on above: Order Comment: Sheldon hoff Type: BLOOD SPECIMEN Ordering Facility: [facility] Address: [address] [place] [address], [place] [address] Result Comment: <100 mg/dL, Optimal 100-129 mg/dL, Near optimal/above optimal 130-159 mg/dL, Borderline high 160-189 mg/dL, High >189 mg/dL, Very high Secondary prevention optimal LDL Cholesterol levels are recommended to be < 70 mg/dL Performed By: #### 2 4323-8, 69704-9 #### [facility] CLIA [id number] [address] [place] [address] OF [facility] Cholesterol in LDL/Cholesterol in HDL [Mass ratio] 3.19 {ratio} High <2.54 [facility] Comment on above: Order Comment: Sheldon hoff Type: BLOOD SPECIMEN Ordering Facility: [facility] Address: [address] [place] [address], [place] [address] Result Comment: Refe rence: 1. National Cholesterol Education Program ATP III Guideline At-A-Glance Quick Desk Reference: National Heart, Lung, and Blood [place]. National Institutes of Health. 2001: NIH Publication No. 01-3305. 2. An International Atherosclerosis Society position paper: global recommendations for the management of dyslipidemia: executive summary, Atherosclerosis. 2014: 232(2):410-413. Performed By: #### 2 4323-8, 20654-8 #### [facility] CLIA [id number] [address] [place] [id number] [place] Cholesterol in VLDL [Mass/Vol] 27 mg/dL Normal <30 [facility] Comment on above: Order Comment: Sheldon men Type: BLOOD SPECIMEN Ordering Facility: [facility] Address: [address] [place] [address], [place] [address] Performed By: #### 2 4323-8, 47553-5 #### [facility] CLIA [id number] [address] [place] Cholesterol non HDL [Mass/Vol] 145 mg/dL High <130 [facility] Comment on above: Order Comment: Sheldon hoff Type: BLOOD SPECIMEN Ordering Facility: [facility] Address: [address] [place] [address], [place] [address] Result Comment: <130 mg/dL, Optimal 130-159 mg/dL, Near optimal/above optimal 160-189 mg/dL, Borderline high 190-219 mg/dL, High >219 mg/dL, Very high Secondary prevention optimal non HDL Cholesterol levels are recommended to be <100 mg/dL Performed By: #### 2 4323-8, 58526-5 #### [facility] CLIA [id number] [address] [place] [address] [place] Cholesterol.total/Kim sterol in HDL [Mass ratio] 4.92 {ratio} Normal <5.10 [facility] Comment on above: Order Comment: Sheldon hoff Type: BLOOD SPECIMEN Ordering Facility: [facility] Address: [address] [place] [address], [place] [address] Performed By: #### 2 4323-8, 77144-0 #### [facility] CLIA [id number] [address] [place] [id number] [place] FASTING TIME UNKNOWN Normal [facility] Comment on above: Order Comment: Speci men Type: BLOOD SPECIMEN Ordering Facility: [facility] Address: [address] [place] [address] Performed By: #### 2 4323-8, 27759-7 #### [facility] CLIA [id number] [address] [place] [address] [place] Triglyceride [Mass/Vol] 137 mg/dL Normal <150 [facility] Comment on above: Order Comment: Speci men Type: BLOOD SPECIMEN Ordering Facility: [facility] Address: [address], [place] [address] Result Comment: <150 mg/dL, Normal 150-199 mg/dL, Borderline high 200-499 mg/dL, High >499 mg/dL, Very high Performed By: #### 2 4323-8, 51010-5 #### [facility] CLIA [id number] [address] [place] [address] OF [facility] No Panel InformationOrdered By: Zulema Cook on 05-31-2023 Prostate Specific Antigen Total 8.84 ng/mL 0.0-4.0 [facility] Comment on above: This test was perfor med using the TPSA assay method for the[employer] chemistry system. Values obtained with differentassay methods cannot be used interchangably.When changing PSA assays in the course of monitoring apatient, additional sequential testing should be carriedout to confirm baseline values. Glucose Glucometer (BldC) [M ass/Vol]Ordered By: Marbin Vazquez on 04-04-2023 Glucose [Mass/Vol] 150 mg/dL 74-[address] [facility] Comment on above: MANAGEMENT OF PATIEN T CARE PER NURSING PROTOCOL Anaerobic cultureOrdered By: Vinayak Castillo on 03-14-2023 Bacteria identified Anaer cx Nom (Unsp spec) No anaerobic bacteria isolated. [facility] Bacteria identified Anaer cx Nom (Unsp spec) No anaerobic bacteria isolated. [facility] Bacteria identified Cx Nom ( Wound)Ordered By: Vinayak Castillo on 03-14-2023 Wound Culture Staphylococcus aureus [facility] Wound Culture Staphylococcus aureus [facility] Gram stain for investigation of transfusion reactionOrdered By: Vinayak Castillo on 03-14-2023 Microscopic observation Gram stain Nom (Unsp spec) [facility] Microscopic observation Gram stain Nom (Unsp spec) [facility] No Panel InformationOrdered By: Good Ness on 01-23-2023 Prostate Specific Antigen Total 7.81 ng/mL 0.0-4.0 [facility] Comment on above: This test was perfor med using the TPSA assay method for [employer] chemistry system. Values obtained with differentassay methods cannot be used interchangably.When changing PSA assays in the course of monitoring apatient, additional sequential testing should be carriedout to confirm baseline values. CNOVon 10-27-2022 CNOV Office Visit (AGGENS 1) TRAVIS,LEE Janelle ([id number]) 1955 M Date Time Provider Department 10/27/22 11:00 AM ANGÉLICA LIAO During your visit today, we recorded the following information about you: Angélica Liao PA-C 10/27/2022 12:20 PM Signed Angélica Liao PA-C Hepatobiliary Surgery [address] [facility], [address] [place] [id number] SUBJECTIVE Lee Janelle Zarate is a 67 year old male here for a post op visit. The patient is s/p excision of right thigh mass. He has no concerns. No pain at the surgery site. No problems with his wound. The ROS, medical, surgical, family, and social history were reviewed by Angélica Liao PA-C OBJECTIVE There were no vitals taken [...] and he is agreeable with the plan. Angélica Liao PA-C 10/27/2022 11:56 AM Allergies As of Date: 10/27/2022 (No Known Allergies) Date Reviewed: 10/27/2022 Reviewed by: Ashley Raymond LPN - Fully Assessed Reason for Visit: Post Op [174] Cmt: S/P Excision of thigh mass Primary Visit Diagnosis:Surgery follow-up [Z09] Prescriptions as of 10/27/2022 - metFORMIN (GLUCOPHAGE) 500 mg tablet Take 500 mg by mouth daily with breakfast. - multivitamin tablet Take 1 tablet by mouth once daily. - OMEGA 9-EVU-QJS-FISH OIL ORAL Take 1,000 mg by mouth once daily. - MEDICATION, NON-DATABASE Pomegrante juice 2 oz daily - CINNAMON 1000 mg oral daily - ONETOUCH VERIO TEST STRIPS test strip TEST BLOOD SUGER FOUR TIMES DAILY - glimepiride (AMARYL) 4 mg tablet Take 4 mg by mouth once daily. - ONETOUCH DELICA PLUS LANCET 30 gauge - lisinopril (ZESTRIL, PRINIVIL) 10 mg tablet Take 10 mg by mouth once daily. - UNIFINE PENTIPS 31 gauge x 1/4 ndle as directed. - MEDICATION, NON-DATABASE 1 tablet once daily. BioBeet Problem List As Of Date 10/27/2022 Noted Resolved Diabetes mellitus (HCC) [E11.9] 08/16/2022 Hypertension [I10] 08/16/2022 Mass of right thigh [R22.41] 08/16/2022 Disposition: Return if symptoms worsen or fail to improve. Follow-up and Disposition History for Encounter Date Provider Department Center 10/27/2022 [id number], NATALIE AGGENS1 [facility] Encounter Status:Closed by ANGÉLICA LIAO on 10/27/22 [facility] ANES POSTPROC EVALon 023 ANES POSTPROC EVAL HNO ID: [id number] Author: Hector Toscano MD Service: Anesthesiology Author Type: Physician Type: Anesthesia Postprocedure Evaluation Filed: 10/13/2022 2:00 PM Note Text: POST ANESTHESIA EVALUATION NOTE : 1955 Procedure Summary Date: 10/13/22 Room / Location: [place] OR 15 / [place] OR Anesthesia Start: 1051 Anesthesia Stop: 1219 Procedure: EXCISION RIGHT THIGH MASS 9CM (Right) Diagnosis: Mass of right thigh (Mass of right thigh [R22.41]) Surgeons: Bipin Lan MD Responsible Provider: Hector Toscano MD Anesthesia Type: general ASA Status: 2 Anesthesia Type: general Airway Type: ETT Last Vitals Vitals Value Taken Time BP 140/88 10/13/22 1315 Temp 36.1 ?C (97 ?F) 10/13/22 1300 HR SpO2 69 10/13/22 1319 Resp 13 10/13/22 1319 SpO2 97 % 10/13/22 1319 Vitals shown include unvalidated device data. Post Anesthesia Patient Status Anticipated Disposition: phase 2 then home. Neurological Status: aware and responsive. Pulmonary Status: breathing comfortably on room air Airway Control: returned to baseline unsupported. Cardiovascular Status: stable. Pain Management: clinically adequate Postoperative Hydration: acceptable. Intraoperative Events: no significant anesthesia events Post Operative Nausea/Vomiting Status: no significant post operative nausea or vomiting Anesthesia Observations No Documentation SIGNATURE: Hector Toscano MD PATIENT NAME: Lee Zarate DATE: October 13, 2022 TIME: 1:58 PM CSN: [id number] [facility] ANES PRE-OPon 10-13-2022 ANES PRE-OP HNO ID: [id number] Author: Hector Toscano MD Service: Anesthesiology Author Type: Physician Type: Anesthesia Preprocedure Evaluation Filed: 10/13/2022 10:47 AM Note Text: ANESTHESIOLOGY DAY OF SURGERY NOTE : 1955 Procedure Information Date/Time: 10/13/22 1200 Procedure: EXCISION RIGHT THIGH MASS 9CM (Right) Location: [place] OR 15 / [place] OR Surgeons: Bipin Lan MD Estimated body mass index is 27.98 kg/m? as calculated from the following: Height as of 08/25/22: 177.8 cm (5' 10). Weight as of 08/25/22: 88.5 kg (195 lb). Most recent hematocrit and potassium results: Hematocrit 40.7 10/04/2022 Potassium 4.7 10/04/2022 Relevant Problems CARDIO (+) Hypertension I - PHYSICAL EVALUATION AIRWAY Patient intubated: No. Tracheostomy tube not present Mallampati: II. TM distance: >3 FB. Neck ROM: full ROM without neurological symptoms. Mouth opening: adequate. Short neck: no. Thick neck: no DENTAL Dental findings: teeth intact. Additional exam findings: no II - ANESTHESIA PLAN ASA Score: 2 Anesthetic Plan: general Airway type: ETT NPO Status: adequate Beta Sav Monitoring Plan Monitoring plan: standard ASA. Post Procedure Analgesic Plan Postoperative analgesic plan: parenteral or oral opioids and multimodal analgesia. Informed Consent Anesthetic risks, benefits, alternatives, personnel and consent discussed: yes. Patient / Responsible Republican agrees to proceed: yes Patient / Surrogate agrees to blood products: Yes Significant changes in the patient condition since the History and Physical, not otherwise documented in primary service progress note: no. No vitals data found for the desired time range. No current facility-administered medications on file as of 10/13/2022. Outpatient Medications as of 10/13/2022 Medication Sig - metFORMIN (GLUCOPHAGE) 500 mg tablet Take 500 mg by mouth daily with breakfast. - multivitamin tablet Take 1 tablet by mouth once daily. - OMEGA 1-KDO-CZF-FISH OIL ORAL Take 1,000 mg by mouth once daily. - MEDICATION, NON-DATABASE Pomegrante juice 2 oz daily - CINNAMON 1000 mg oral daily - glimepiride (AMARYL) 4 mg tablet Take 4 mg by mouth once daily. - lisinopril (ZESTRIL, PRINIVIL) 10 mg tablet Take 10 mg by mouth once daily. - MEDICATION, NON-DATABASE 1 tablet once daily. BioBeet - ONETOUCH VERIO TEST STRIPS test strip TEST BLOOD SUGER FOUR TIMES DAILY - ONETOUCH DELICA PLUS LANCET 30 gauge - UNIFINE PENTIPS 31 gauge x / ndle as directed. I have interviewed and examined the patient. I have reviewed the medical record and/or the pre-anesthesia evaluation, pertinent labs, and test results. This contains updated information obtained within 48 hours of Surgery/Procedure. SIGNATURE: Hector Toscano MD PATIENT NAME: Lee Zarate DATE: October 13, 2022 TIME: 10:24 AM CSN: [id number] [facility] OPERATIVE NOon 10-13-2022 OPERATIVE NO HNO ID: [id number] Author: Aakash Hilario DO Service: General Surgery Author Type: Resident Type: Operative Report Filed: 10/13/2022 12:51 PM Note Text: Attestation signed by Bipin Lan MD at 10/13/2022 2:53 PM I was present for the critical and flores portions of the surgery and I was immediately available to provide assistance. 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 He was seen in the office after appropriate imaging completed. The risks benefits and alternatives of surgical intervention were discussed with the patient and he elected to proceed. Patient was met in the presurgical area where a huddle identified the correct patient and procedure. Patient was brought to the operating room, placed supine on operating table, and general anesthesia was induced. The right lower extremity was prepped and draped in usual sterile fashion. Surgical timeout was performed. Preoperative antibiotics were administered. SCDs on the left leg and Lovenox were given for DVT prophylaxis. A 10 cm vertical incision was made over the right anterior thigh over the area of the palpable mass. Blunt and electrocautery dissection was taken down to the quadriceps fascia which was incised with Metzenbaum scissors, the muscle was divided to expose the encapsulated mass. Using combination of finger fracture and blunt electrocautery dissection the mass was elevated off of the muscle and femur. Arterial blood supply to the mass was ligated with electrocautery. The mass was removed and measured 10x 6.5 x3.5 cm. The mass was excised completely and sent to pathology. The resection bed was inspected and additional muscular bleeding was cauterized. Pio was sprayed into the resection bed. The incision was closed in four layers, with a running 3-0 Vicryl muscle, fascia and interrupted subcutaneous and running 4-0 Monocryl and skin glue. The extremity was wrapped with NARESH compression dressing. All surgical counts were correct x2. Patient was brought to the post anesthesia care unit in stable condition. PRE-OP/PRE-PROCEDURE DIAGNOSIS: Right leg soft tissue mass POST-OP/POST-PROCEDURE DIAGNOSIS: Same as Preop ESTIMATED BLOOD LOSS: 10 mls SPECIMENS: right lower extremity soft tissue mass IMPLANTABLE DEVICES: NONE DRAINS: None COMPLICATIONS: None CLOSURE TECHNIQUE: Primary PARTICIPATION IN SURGERY/PROCEDURE: Residents performed the procedure, under direct supervision and the remainder of the procedure was performed by the primary surgeon/proceduralist with assistance. SIGNATURE: Aakash Hilario DO PATIENT NAME: Lee Zarate DATE: October 13, 2022 TIME: 12:43 PM Normal [facility] SURGICAL PATHOLOGYon 023 CASE REPORT Normal [facility] Comment on above: Order Comment: Speci men Type: TISSUE SPECIMEN Ordering Facility: [facility] Address: [address] [place] [id number] Result Comment: Surg ical Pathology Report Case: [id number] Authorizing Provider: Bipin Lan MD Collected: 10/13/2022 11:45 AM Ordering Location: [facility] Received: 10/14/2022 08:57 AM Pathologist: Flakita Avila MD Specimen: SOFT TISSUE MASS RESECTION, RIGHT THIGH MASS, 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 Performed By: #### S #### [facility] CLIA [id number] [address] CLINICAL HISTORY Normal [facility] Comment on above: Order Comment: Speci men Type: TISSUE SPECIMEN Ordering Facility: [facility] Address: [address] [place] [address] Result Comment: Pre- op diagnosis: Mass of right thigh [R22.41] Performed By: #### S #### [facility] CLIA [id number] [address] FINAL DIAGNOSIS Normal [facility] Comment on above: Order Comment: Speci men Type: TISSUE SPECIMEN Ordering Facility: [facility] Address: [address] [place] [address] Result Comment: Mass , right thigh, excision: - Lobulated mature adipose tissue consistent with lipoma. Performed By: #### S #### [facility] CLIA [id number] [address] FINAL PERFORMING LAB Normal [facility] Comment on above: Order Comment: Speci men Type: TISSUE SPECIMEN Ordering Facility: [facility] Address: [address] [place] [address] Result Comment: Diag nostic interpretation performed at [facility], [address] [place] [address] CLIA# [id number] Burglar Alarm Inspector: Chato Ochoa M.D. Performed By: #### S #### [facility] CLIA [id number] [address] GROSS DESCRIPTION Normal [facility] Comment on above: Order Comment: Speci men Type: TISSUE SPECIMEN Ordering Facility: [facility] Address: [address] [place] [address] [place] [address] Result Comment: A. S OFT TISSUE MASS RESECTION Received in formalin labeled soft tissue mass is a unoriented, irregular encapsulated fragment of fibroadipose tissue weighing 96 g and measuring 9 x 5.5 x 4 cm. The outer surface is inked black. Sectioning reveals diffuse fibrofatty cut surfaces with no nodularity or induration. No areas of hemorrhage or necrosis are present. Knitting Teacher sections are submitted in A1-A3. Gross examination performed at [facility], [address] [place] [address] CLIA#[id number] [facility] October 14, 2022 12:11 PM Performed By: #### S #### [facility] CLIA [id number] [address] [place] [address] [place] Basic metabolic 2000 panelon 10-04-2022 Anion gap [Moles/Vol] 11 mmol/L Normal 9-18 [facility] Comment on above: Order Comment: Speci men Type: BLOOD SPECIMEN Ordering Facility: [facility] Address: [address] [place] [address] Performed By: #### 2 4321-2 #### [facility] CLIA [id number] [address] [place] [address] [place] Calcium [Mass/Vol] 9.2 mg/dL Normal 8.5-10.2 [facility] Comment on above: Order Comment: Speci men Type: BLOOD SPECIMEN Ordering Facility: [facility] Address: [address] [place] [address] Performed By: #### 2 4321-2 #### [facility] CLIA [id number] [address] [place] [address] [place] Chloride [Moles/Vol] 103 mmol/L Normal 97-105 [facility] Comment on above: Order Comment: Speci men Type: BLOOD SPECIMEN Ordering Facility: [facility] Address: [address] [place] [address] Performed By: #### 2 4321-2 #### [facility] CLIA [id number] [address] [place] [address] [place] CO2 [Moles/Vol] 25 mmol/L Normal 22-30 [facility] Comment on above: Order Comment: Speci men Type: BLOOD SPECIMEN Ordering Facility: [facility] Address: [address] [place] [address] Performed By: #### 2 4321-2 #### [facility] CLIA [id number] [address] [place] [address] [place] Creatinine [Mass/Vol] 1.14 mg/dL Normal 0.73-1.22 [facility] Comment on above: Order Comment: Speci men Type: BLOOD SPECIMEN Ordering Facility: [facility] Address: [address] [place] [address] Performed By: #### 2 4321-2 #### [facility] [place] [id number] [address] [place] [address] [place] ESTIMATED GLOMERULAR FILTRATION RATE 70 mL/min/1.73m??? Normal >=60 [facility] Comment on above: Order Comment: Speci men Type: BLOOD SPECIMEN Ordering Facility: [facility] Address: [address] [place] [address] Result Comment: Megha mated Glomerular Filtration Rate (eGFR) is calculated using the 2020 CKD-EPI creatinine equation. This equation utilizes serum creatinine, sex, and age as parameters. The creatinine assay has traceable calibration to isotope dilution-mass spectrometry. Refer to KDIGO guidelines for clinical interpretation. In patients with unstable renal function, e.g. those with acute kidney injury, the eGFR may not accurately reflect actual GFR. Performed By: #### 2 4321-2 #### [facility] CLIA [id number] [address] [place] [address] [place] Glucose [Mass/Vol] 143 mg/dL High 74-99 [facility] Comment on above: Order Comment: Speci men Type: BLOOD SPECIMEN Ordering Facility: [facility] Address: [address] [place], [place] [address], [place] [address] Result Comment: The [place] Diabetes Association (ADA) provides guidance for cutoff values for fasting glucose and random glucose. The ADA defines fasting as no caloric intake for at least 8 hours. Fasting plasma glucose results between 100 to 125 mg/dL indicate increased risk for diabetes (prediabetes). Fasting plasma glucose results greater than or equal to 126 mg/dL meet the criteria for diagnosis of diabetes. In the absence of unequivocal hyperglycemia, results should be confirmed by repeat testing. In a patient with classic symptoms of hyperglycemia or hyperglycemic crisis, random plasma glucose results greater than or equal to 200 mg/dL meet the criteria for diagnosis of diabetes. Reference: Standards of Medical Care in Diabetes 2016, [place] Diabetes Association. Diabetes Care. 2016.39(Suppl 1). Performed By: #### 2 4321-2 #### [facility] CLIA [id number] [address] [place] [address] [place] Potassium [Moles/Vol] 4.7 mmol/L Normal 3.7-5.1 [facility] Comment on above: Order Comment: Speci men Type: BLOOD SPECIMEN Ordering Facility: [facility] Address: [address] [place] [address] Performed By: #### 2 4321-2 #### [facility] CLIA [id number] [address] [place] [address] [place] Sodium [Moles/Vol] 139 mmol/L Normal 136-144 [facility] Comment on above: Order Comment: Speci men Type: BLOOD SPECIMEN Ordering Facility: [facility] Address: [address] [place] [address] Performed By: #### 2 4321-2 #### [facility] CLIA [id number] [address] [place], [place] [id number] [place] Urea nitrogen [Mass/Vol] 27 mg/dL High 9-24 [facility] Comment on above: Order Comment: Speci men Type: BLOOD SPECIMEN Ordering Facility: [facility] Address: [address] [place] [address] Performed By: #### 2 4321-2 #### [facility] CLIA [id number] [address] [place] [address] [place] CBC panel Auto (Bld)on 10-04 Erythrocyte distribution width (RBC) [Ratio] 12.3 % Normal 11.5-15.0 [facility] Comment on above: Order Comment: Speci men Type: BLOOD SPECIMEN Ordering Facility: [facility] Address: [address] [place] [address] Performed By: #### 5 8410-2 #### [facility] CLIA [id number] [address] [place] [address] [place] Hematocrit (Bld) [Volume fraction] 40.7 % Normal 39.0-51.0 [facility] Comment on above: Order Comment: Speci men Type: BLOOD SPECIMEN Ordering Facility: [facility] Address: [address] [place] [address] Performed By: #### 5 8410-2 #### [facility] CLIA [id number] [address] [place] [address] [place] Hemoglobin (Bld) [Mass/Vol] 14.1 g/dL Normal 13.0-17.0 [facility] Comment on above: Order Comment: Speci men Type: BLOOD SPECIMEN Ordering Facility: [facility] Address: [address] [place] [address] Performed By: #### 5 8410-2 #### [facility] CLIA [id number] [address] [place] [address] [place] MCH (RBC) [Entitic mass] 31.5 pg Normal 26.0-34.0 [facility] Comment on above: Order Comment: Speci men Type: BLOOD SPECIMEN Ordering Facility: [facility] Address: [address] [place] [address] Performed By: #### 5 8410-2 #### [facility] CLIA [id number] [address] [place] [address] [place] MCHC (RBC) [Mass/Vol] 34.6 g/dL Normal 30.5-36.0 [facility] Comment on above: Order Comment: Speci men Type: BLOOD SPECIMEN Ordering Facility: [facility] Address: [address] [place] [address] Performed By: #### 5 8410-2 #### [facility] CLIA [id number] [address] [place] [address] [place] MCV (RBC) [Entitic vol] 91.1 fL Normal 80.0-100.0 [facility] Comment on above: Order Comment: Speci men Type: BLOOD SPECIMEN Ordering Facility: [facility] Address: [address] [place] [address] Performed By: #### 5 8410-2 #### [facility] CLIA [id number] [address] [place] [address] [place] Nucleated RBC (Bld) [#/Vol] 10*3/uL Normal <0.01 [facility] Comment on above: Order Comment: Speci men Type: BLOOD SPECIMEN Ordering Facility: [facility] Address: [address] [place] [address] Performed By: #### 5 8410-2 #### [facility] IA [id number] [address] [place] [address] [place] Platelet mean volume (Bld) [Entitic vol] 10.9 fL Normal 9.0-12.7 [facility] Comment on above: Order Comment: Speci men Type: BLOOD SPECIMEN Ordering Facility: [facility] Address: [address] [place] [address] Performed By: #### 5 8410-2 #### [facility] CLIA [id number] [address] [place] [address] [place] Platelets (Bld) [#/Vol] 272 10*3/uL Normal 150-400 [facility] Comment on above: Order Comment: Speci men Type: BLOOD SPECIMEN Ordering Facility: [facility] Address: [address] [place] [address] Performed By: #### 5 8410-2 #### [facility] CLIA [id number] [address] [place] [address] [place] RBC (Bld) [#/Vol] 4.47 10*6/uL Normal 4.20-6.[address] [facility] Comment on above: Order Comment: Speci men Type: BLOOD SPECIMEN Ordering Facility: [facility] Address: [address] [place] [address] Performed By: #### 5 8410-2 #### [facility] CLIA [id number] [address] [place] [address] [place] WBC (Bld) [#/Vol] 9.47 10*3/uL Normal 3.70-11.[address] [facility] Comment on above: Order Comment: Speci men Type: BLOOD SPECIMEN Ordering Facility: [facility] Address: [address] [place] [address] Performed By: #### 5 8410-2 #### [facility] CLIA [id number] [address] [place] [address] [place] HbA1c (Bld)on 10-04-2022 Average glucose Estimated from glycated hemoglobin (Bld) [Mass/Vol] 126 mg/dL Normal [facility] Comment on above: Order Comment: Speci men Type: BLOOD SPECIMEN Ordering Facility: [facility] Address: [address] [place] [address] Result Comment: eAG: (Estimated average glucose) is a calculated value from HgbA1c and is applications sales representative of the average blood glucose level in the last 2-3 month period. Performed By: #### 5 5454-3 #### [facility] CLIA [id number] [address] [place] [address] [place] [address] [place] HbA1c (Bld) [Mass fraction] 6.0 % High 4.3-5.6 [facility] Comment on above: Order Comment: Speci men Type: BLOOD SPECIMEN Ordering Facility: [facility] Address: [address] [facility], [place] [address] Result Comment: [place] Diabetes Association guidelines indicate that patients with HgbA1c in the range 5.7-6.4% are at increased risk for development of diabetes, and intervention by lifestyle modification may be beneficial. HgbA1c greater or equal to 6.5% is considered diagnostic of diabetes. Performed By: #### 5 5454-3 #### [facility] CLIA [id number] [address] [place] [address] [place] CNCOon 09-27-2022 [facility] Clinical report post ed in error Letter Text Normal [facility] MRI UPPER LEG WO/W IVCON RTo n 09-22-2022 MRI UPPER LEG WO/W IVCON RT * * *Final Report* * * DATE OF EXAM: Sep 22 2022 9:48AM [id number] - MRI UPPER LEG WO/W IVCON RT / PROCEDURE REASON: Mass of right thigh * * * * Physician Interpretation * * * * HISTORY (as given from clinical provider): Mass of right thigh . Additional history provided by the performing technologist (if any): PALPABLE MASS ANTERIOR MID DISTAL RT FEMUR TECHNIQUE: MRI UPPER LEG WO/W IVCON RT; postcontrast images obtained following IV administration of 18 cc Dotarem COMPARISON: None RESULT: Marker was placed along the anteromedial aspect of the distal thigh in the region of the palpable abnormality. There is a mass in the anterior compartment of the thigh medially at the site of the marker that measures approximately 5.5 x 4.0 x 8.5 cm. Precise compartmentalization is difficult to determine due to size though this likely involves the vastus intermedius or the plane between the vastus intermedius and vastus medialis muscles. This probably does not directly involve the vastus medialis muscle. The mass does closely approach and possibly abut the medial cortex of the distal femoral shaft without bone reaction. There is approximately 5 mm of vastus medialis muscle the posterior margin of the mass from the femoral neurovascular structures. The mass demonstrates fat signal intensity on all pulse sequences including frequency selective fat suppressed images. There are a few thin septae without nodularity. No abnormal enhancement. Findings are compatible with fatty mass. Small subchondral cysts in the superolateral right acetabulum. No other significant abnormality. 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 DESCRIBED Systems Programmer Analyst: SAUL Transcribe Date/Time: Sep 22 2022 10:01A Dictated by : RUBIA ENGLE MD This examination was interpreted and the report reviewed and electronically signed by: RUBIA ENGLE MD on Sep 22 2022 10:06AM EST [id number] Normal [facility] CNOVon 08-25-2022 CNOV Office Visit (CARRIE ) LEE ZARATE ([id number]) 1955 M Date Time Provider Department 08/25/22 9:00 AM BIPIN LAN During your visit today, we recorded the following information about you: Pulse Blood pressure Weight Height 78/minute 122/78 88.5 kg 1.778 m Bipin Lan MD 08/25/2022 9:28 AM Signed Bipin Lan M.D. Surgical Oncology [address] [facility], [address] [place] [id number] SUBJECTIVE HPI Lee Zarate is a 66 year old male presenting [...] family, and social history were reviewed by Bipin Lan MD ALLERGIES No Known Allergies Current [...] 122/78 Pulse 78 Ht 177.8 cm (5' 10) Wt 88.5 kg (195 lb) SpO2 98% [...] patient that I am uncertain of the e (more content not included)... Normal [facility] Persaud Basophil percentageOrdered B y: KARLO GRIFFIN on 07-12-2022 Bilirubin [Mass/Vol] 0.80 mg/dL 0.20-1.00 [facility] Comment on above: For patients on eltr ombopag therapy, use of Dimension [place] TBIL is not recommended. Chloride [Moles/Vol] 98 mmol/L 98-107 [facility] Cholesterol [Mass/Vol] 178 mg/dL <[address] [facility] Comment on above: <200 mg/dL Desirable 200-240 mg/dL Borderline >240 mg/dL High Risk Glucose [Mass/Vol] 384 mg/dL 74-[address] [facility] Comment on above: Glucose result great er than or equal to 200 mg/dLsuggests DIABETES MELLITUS per A.D.A. criteria. Potassium [Moles/Vol] 4.1 mmol/L 3.5-5.1 [facility] Protein [Mass/Vol] 7.3 g/dL 6.4-8.[address] [facility] Sodium [Moles/Vol] 133 mmol/L 136-[address] [facility] Triglyceride [Mass/Vol] 205 mg/dL <199 [facility] Comment on above: The drugs N-Acetylcy steine and Metamizole may falsely depress this assay.Serum Triglycerides Reference Interval Normal <150 mg/dL Borderline high 150 - 199 mg/dL High 200 - 499 mg/dL Very High > or = 500 mg/dL WBC (Bld) [#/Vol] 9.5 10*3/uL 4.4-11.[address] [facility] Blood erythrocytes count (nu mber/volume)Ordered By: [facility] on 07-12-2022 RBC (Bld) [#/Vol] 4.96 10*6/uL 4.6-6.2 [facility] Blood hemoglobin measurement (mass/volume)Ordered By: [facility] on 07-12-2022 Hemoglobin (Bld) [Mass/Vol] 15.6 g/dL 13.0-16.5 [facility] Blood platelet mean volumeOr dered By: [facility] on 07-12-2022 Platelet mean volume (Bld) [Entitic vol] 10.4 fL 6.2-12.0 [facility] Determination of erythrocyte mean corpuscular volume (MCV)Ordered By: [facility] on 07-12-2022 MCV (RBC) [Entitic vol] 89.9 fL 80-94 [facility] Hematocrit Auto (Bld) [Volum e fraction]Ordered By: [facility] on 07-12-2022 Hematocrit (Bld) [Volume fraction] 44.6 % 40-54 [facility] - Chemistry and C hemistry - challengeOrdered By: [facility] on 07-12-2022 ALP [Catalytic activity/Vol] 109 U/L 45-117 [facility] ALT [Catalytic activity/Vol] 35 U/L 16-61 [facility] CO2 [Moles/Vol] 26.0 mmol/L 21.0-32.0 [facility] Globulin (S) [Mass/Vol] 4.0 g/dL 2.2-4.2 [facility] Urea nitrogen/Creatinine [Mass ratio] 15.4 mg/mg 10-20 [facility] - Hematology and Cell countsOrdered By: KARLO GRIFFIN on 07-12-2022 Erythrocyte distribution width (RBC) [Entitic vol] 38.1 fL 35.1-43.9 [facility] Erythrocyte distribution width (RBC) [Ratio] 11.8 % 11.6-14.6 [facility] MCH (RBC) [Entitic mass] 31.5 pg 27.0-32.0 [facility] MCHC Auto (RBC) [Mass/Vol]Or dered By: KARLO GRIFFIN on 07-12-2022 MCHC (RBC) [Mass/Vol] 35.0 g/dL 32-36 [facility] No Panel InformationOrdered By: KARLO GRIFFIN on 07-12-2022 Estimated GFR (MDRD) Amer 92 mL/min >60 [facility] Comment on above: GFR Calc Estimated GFR (MDRD) Non-Af Amer 76 mL/min >60 [facility] Comment on above: Non- GFR Calc Prostate Specific Antigen Screen 6.34 ng/mL 0.00-4.00 [facility] Comment on above: This test was perfor med using the TPSA assay method for the[employer]enon chemistry system. Values obtained with differentassay methods cannot be used interchangably.When changing PSA assays in the course of monitoring apatient, additional sequential testing should be carriedout to confirm baseline values. Platelets bldOrdered By: ENRIQUE BERMEO on 07-12-2022 Platelets (Bld) [#/Vol] 241 10*3/uL 150-450 [facility] Serum or plasma albumin sid urement (mass/volume)Ordered By: KARLO GRIFFIN on 07-12-2022 Albumin [Mass/Vol] 3.3 g/dL 3.2-5.[address] [facility] Serum or plasma albumin/glob ulin mass ratioOrdered By: KARLO GRIFFIN on 07-12-2022 Albumin/Globulin [Mass ratio] 0.8 {ratio} 0.9-2.4 [facility] Serum or plasma calcium sid urement (mass/volume)Ordered By: [facility] on 07-12-2022 Calcium [Mass/Vol] 8.6 mg/dL 8.5-10.[address] [facility] Serum or plasma cholesterol in HDL measurement (mass/volume)Ordered By: [facility] on 07-12-2022 Cholesterol in HDL [Mass/Vol] 39 mg/dL >40 [facility] Comment on above: The drugs N-Acetylcy steine and Metamizole may falsely depress this assay. Reference Range HDL <40 mg/dL Low HDL Cholesterol HDL >or= 60 mg/dL High HDL Cholesterol Serum or plasma cholesterol in VLDL measurement (mass/volume)Ordered By: [facility] on 07-12-2022 Cholesterol in VLDL [Mass/Vol] 41 mg/dL 5-40 [facility] Serum or plasma creatinine m easurement (mass/volume)Ordered By: [facility] on 07-12-2022 Creatinine [Mass/Vol] 1.04 mg/dL 0.70-1.30 [facility] Comment on above: The validity of the calculated GFR & GFRAA in patients over 70 years has not been determined. Clinical correlation is essential. Serum or plasma low density lipoprotein (LDL) cholesterol measurement (mass/volume)Ordered By: [facility] on 07-12-2022 Cholesterol in LDL [Mass/Vol] 98 mg/dL 0-130 [facility] Serum or plasma urea nitroge n measurement (mass/volume)Ordered By: [facility] on 07-12-2022 Urea nitrogen [Mass/Vol] 16 mg/dL 7-18 [facility] Thin prep Papanicolaou smear with manual screeningOrdered By: [facility] on 07-12-2022 Thin prep Papanicolaou smear with manual screening 37 U/L 15-37 [facility] Thin prep Papanicolaou smear with manual screening 9 5-15 [facility] Whole blood hemoglobin A1c/t otal hemoglobin ratio (mass fraction)Ordered By: [facility] on 07-12-2022 HbA1c (Bld) [Mass fraction] 11.7 % 3.8-5.6 [facility] Comment on above: Normal < 5.7 % Predi abetic 5.7 - 6.4 % Diabetic >or= 6.5 % Please note range changes. Vital Signs Date Time Vital Sign Value Performing Clinician Loco gonzales 01-15-2025 11:20-0400 Body height 177.8 cm Brittany Manning NP-C Work Phone: [phone] [place] [address] 01-15-2025 11:20-0400 Body mass index (BMI) [Ratio] 28.5 kg/m2 Brittany Manning [employer] Work Phone: 0(022)[phone] [place] [address] 01-15-2025 11:20-0400 Body weight 90.26 kg Brittany Manning [employer] Work Phone: 1(676)502-306726 [place] [address] 01-15-2025 11:20-0400 Diastolic blood pressure 84 mm[Hg] Brittany Manning [employer] Work Phone: 1(709)414-717626 [place] [address] 01-15-2025 11:20-0400 Heart rate 70 /min Brittany Manning [employer] Work Phone: 6(852)353-600626 [place] [address] 01-15-2025 11:20-0400 Respiratory rate 16 /min Brittany Manning [employer] Work Phone: 5([phone])204-593526 [place] [address] 01-15-2025 11:20-0400 Systolic blood pressure 138 mm[Hg] Brittany Manning [employer] Work Phone: 8(864)362-283526 [place] [address] 04-04-2023 15:17-0400 Body temperature 98.3 [degF] [facility] Work Phone: [phone])208-094826 [place] [address] 04-04-2023 15:17-0400 Diastolic blood pressure 83 mm[Hg] [facility] Work Phone: 6([phone])493-532926 [place] [address] 04-04-2023 15:17-0400 Heart rate 57 /min [facility] Work Phone: 4([phone])189-518526 [place] [address] 04-04-2023 15:17-0400 Respiratory rate 16 /min [facility] Work Phone: 3(896)747-528526 [place] [address] 04-04-2023 15:17-0400 SaO2% (BldA) [Mass fraction] 99 % [facility] Work Phone: 8([phone])[phone] [place] [address] 04-04-2023 15:17-0400 Systolic blood pressure 107 mm[Hg] [facility] Work Phone: 0(636)268-209726 [place] [address] 04-04-2023 13:01-0400 Body height 177.8 cm [facility] Work Phone: 6(006)318-723126 [place] [address] 04-04-2023 13:01-0400 Body mass index (BMI) [Ratio] 26.5 kg/m2 [facility] Work Phone: 8(818)636-771826 [place] [address] 04-04-2023 13:01-0400 Body weight 84 kg [facility] Work Phone: 0(038)[phone] [place] [address] 12-20-2022 09:53-0400 Body height 177.8 cm [facility] Work Phone: 8(853)132-749026 [place] [address] 12-20-2022 09:53-0400 Body mass index (BMI) [Ratio] 26.5 kg/m2 [facility] Work Phone: 5(213)242-850426 [place] [address] 12-20-2022 09:53-0400 Body weight 83.91 kg [facility] Work Phone: 6(343)391-855526 [place] [address] 09-07-2022 00:31-0500 Body weight 88.54 kg [facility] Work Phone: 6(870)551-878526 [place] [address] 08-25-2022 08:52-0500 Body height 177.8 cm Bipin Lan MD Work Phone: [facility] 08-25-2022 08:52-0500 Body weight 88.45 kg Bipin Lan MD Work Phone: [facility] 08-25-2022 08:52-0500 Diastolic blood pressure 78 mm[Hg] Bipin Lan MD Work Phone: [facility] 08-25-2022 08:52-0500 Heart rate 78 /min Bipin Lan MD Work Phone: [facility] 08-25-2022 08:52-0500 SaO2% (BldA) [Mass fraction] 98 % Bipin Lan MD Work Phone: [facility] 08-25-2022 08:52-0500 Systolic blood pressure 122 mm[Hg] Bipin Lan MD Work Phone: [facility] 08-10-2022 00:52-0500 Body weight 88.54 kg No Primary Care Physician [facility] 08-04-2022 16:35-0500 Body height 177.8 cm No Primary Care Physician [facility] 08-04-2022 16:35-0500 Body weight 88.54 kg No Primary Care Physician [facility] 07-18-2022 09:13-0500 Body height 177.8 cm No Primary Care Physician [facility] 07-18-2022 09:13-0500 Body mass index (BMI) [Ratio] 28.8 kg/m2 No Primary Care Physician [facility] 07-18-2022 09:13-0500 Body temperature 97 [degF] No Primary Care Physician [facility] 07-18-2022 09:13-0500 Body weight 91.28 kg No Primary Care Physician [facility] 07-18-2022 09:13-0500 Diastolic blood pressure 96 mm[Hg] No Primary Care Physician [facility] 07-18-2022 09:13-0500 Heart rate 87 /min No Primary Care Physician [facility] 07-18-2022 09:13-0500 Respiratory rate 18 /min No Primary Care Physician [facility] 07-18-2022 09:13-0500 SaO2% (BldA) [Mass fraction] 98 % No Primary Care Physician [facility] 07-18-2022 09:13-0500 Systolic blood pressure 156 mm[Hg] No Primary Care Physician [facility] 06-15-2022 15:19-0500 Body mass index (BMI) [Ratio] 26.9 kg/m2 No Primary Care Physician [facility] 06-15-2022 15:19-0500 Body temperature 97.9 [degF] No Primary Care Physician [facility] 06-15-2022 15:19-0500 Body weight 87.54 kg No Primary Care Physician [facility] 06-15-2022 15:19-0500 Diastolic blood pressure 78 mm[Hg] No Primary Care Physician [facility] 06-15-2022 15:19-0500 Heart rate 82 /min No Primary Care Physician [facility] 06-15-2022 15:050 Respiratory rate 14 /min No Primary Care Physician [facility] 06-15-2022 15:0500 SaO2% (BldA) [Mass fraction] 96 % No Primary Care Physician [facility] 06-15-2022 15:0500 Systolic blood pressure 154 mm[Hg] No Primary Care Physician [facility] Encounters Encounter Date Encounter Type Care Provider Facility Start: 02-26-2025 ambulatory Bentley Tejada Facility:[facility] Start: 02-12-2025 ambulatory Brittany Manning VSC Fa cility:[facility] Start: 01-15-2025 End: 01-15-2025 ambulatory Brittany Manning [employer] Work Phone: -[facility] Start: 01-15-2025 End: 01-15-[address] Bentley Tejada MD -[facility] Work Phone: Start: 12-12-2024 End: 12-12-2024 ambulatory Brittany Manning [employer] Work Phone: [facility] Work Phone: Start: 12-12-2024 End: 12-12-2024 Patient encounter procedure Lena Melendez [employer] -Laboratory [facility] Start: 12-12-2024 End: 12-12-2024 ambulatory Lena Melendez VSC Facility:[facility] Start: 11-25-2024 End: 11-25-[address] Good Ness MD -Laboratory Work Phone: Start: 11-25-2024 End: 11-25-2024 ambulatory Brittany Manning VSC Facility:[facility] Start: 10-29-2024 End: 10-29-2024 Patient encounter procedure Lena Melendez [employer] -Laboratory [facility] Start: 10-29-2024 End: 10-29-2024 ambulatory Lena Melendez VSC Facility:[facility] Start: 05-28-2024 End: 05-28-2024 ambulatory Brittany Manning [facility] Facility:[facility] Start: 07-17-2023 End: 07-17-[address] [facility] Work Phone: [facility] Work Phone: Start: 07-17-2023 End: 07-17-2023 Patient encounter procedure [facility] Work Phone: [facility], Specimen Work Phone: Start: 05-31-2023 End: 05-31-[address] [facility] Work Phone: [facility] Work Phone: Start: 05-31-2023 End: 05-31-2023 Patient encounter procedure [facility] Work Phone: [facility] Work Phone: Start: 04-04-2023 Non-patient / Non-visit [facility] Work Phone: [facility] Start: 04-04-2023 End: 04-04-2023 Admission to same day surgery center [facility] Work Phone: [facility] Work Phone: Start: 04-04-2023 End: 04-04-[address] [facility] Work Phone: [facility] Work Phone: Start: 03-14-2023 End: 03-14-[address] [facility] Work Phone: [facility] Work Phone: Start: 03-14-2023 End: 03-14-2023 Patient encounter procedure [facility] Work Phone: [facility], Specimen Work Phone: Start: 02-06-2023 End: 02-06-[address] [facility] Work Phone: [facility] Work Phone: Start: 02-06-2023 End: 02-06-2023 Discharged Recurring [facility] Work Phone: [facility] Work Phone: Start: 01-23-2023 End: 01-23-2023 Patient encounter procedure [facility] Work Phone: [facility] Work Phone: Start: 12-20-2022 Non-patient / Non-visit [facility] Work Phone: [facility] Work Phone: Start: 10-27-2022 End: 10-27-2022 ambulatory ANGÉLICA LIAO Facility:[facility] Start: 10-27-2022 End: 10-27-2022 Patient encounter procedure Angélica Liao PA-C Work Phone: [facility] Comment on above: Surgery follow-up (P rimary Dx) Start: 10-13-2022 End: 10-13-2022 ambulatory BIPIN LAN Facility:[facility] Start: 09-27-2022 Orders Only Bipin henry MD Work Phone: [facility] Comment on above: Mass of right thigh (Primary Dx) Start: 09-26-2022 End: 09-26-2022 ambulatory BIPIN LAN Facility:[facility] Start: 09-26-2022 End: 09-26-2022 Phys/qhp telephone evaluation 11-20 min Bipin Lan MD Work Phone: [facility] Comment on above: Mass of right thigh (Primary Dx) Start: 09-22-2022 End: 09-22-2022 ambulatory BIPIN LAN Facility:[facility] Start: 09-22-2022 End: 09-22-2022 Subsequent hospital visit by physician M[facility] (I-Stat/1.5t) Work Phone: Radiology Comment on above: Mass of right thigh [R22.41] Start: 09-06-2022 End: 09-06-2022 ambulatory No Primary Care Physician [facility] Work Phone: Start: 09-06-2022 End: 09-06-2022 Discharged Recurring No Primary Care Physician [facility] Start: 08-25-2022 End: 08-25-2022 ambulatory BIPIN LAN Facility:[facility] Start: 08-25-2022 End: 08-25-2022 Office outpatient new 30 minutes Bipin Lan MD Work Phone: General Surgery Comment on above: Mass of right thigh (Primary Dx) Start: 08-16-2022 Chart abstracting Bipin alejandra MD Work Phone: [facility] Start: 08-09-2022 End: 08-09-2022 ambulatory No Primary Care Physician [facility] Work Phone: Start: 08-09-2022 End: 08-09-2022 Patient encounter procedure No Primary Care Physician [facility] Start: 08-04-2022 End: 08-09-2022 ambulatory No Primary Care Physician [facility] Work Phone: Start: 08-04-2022 End: 08-09-2022 Discharged Recurring No Primary Care Physician [facility] Start: 07-18-2022 End: 07-18-2022 Patient encounter procedure No Primary Care Physician [facility] Start: 07-12-2022 End: 07-12-2022 ambulatory No Primary Care Physician [facility] Work Phone: Start: 07-12-2022 End: 07-12-2022 Patient encounter procedure No Primary Care Physician [facility] Start: 06-15-2022 End: 06-15-2022 Patient encounter procedure No Primary Care Physician [facility] Procedures Date Procedure Procedure Detail Performing Clinician Start: 11-25-2024 Assay of prostate sp ecific antigen total Brittany Manning [employer] Work Phone: Comment on above: This test was perfor med using the [employer] tPSA method. Measured values of a patient sample can vary depending on the testing procedure used. PSA values determined on patient samples by different testing procedures cannot be used interchangeably. If there is a change in PSA assays while monitoring therapy, sequential testing should be performed to confirm baseline values. Start: 04-04-2023 Colonoscopy [facility] Work Phone: Start: 03-14-2023 Anaerobic microbial culture [facility] Work Phone: Start: 03-14-2023 Investigation of tra nsfusion reaction [facility] Work Phone: Start: 03-14-2023 Microbial culture, routine [facility] Work Phone: Start: 09-22-2022 Mri lower extrem oth /thn jt w/o & w/contr matr Bipin Lan MD Work Phone: Start: 08-09-2022 Ultrasonography of limb No Primary Care Physician Plan of Treatment Date Care Activity Detail Author Start: 01-15-2025 Evaluation of diagno stic study results [facility] Start: 08-25-2023 BP CONTROLLED (<130/80) BP CONTROLLE D (<130/80) [facility] Start: 04-06-2023 Hemoglobin A1c/Hemoglobin.total in Blood HBA1C [facility] Start: 04-04-2023 Patient discharge [facility] Start: 03-10-2023 Influenza vaccination C [facility] Start: 08-09-2022 Ultrasonography of limb Ext No n Vasc Limited/Soft Tiss [facility] Start: 07-10-2022 ADVANCE DIRECTIVE DISCUSSION ADVANCE DIRECTIVE DISCUSSION [facility] Start: 07-10-2022 DEPRESSION ASSESSMENT DEPRESSION ASS ESSMENT [facility] Start: 03-10-2022 Influenza vaccination INFLUENZA (#1) [facility] Start: 09-15-2020 PNEUMOCOCCAL: 65+ (1 - PCV) PNEUMOCOCCAL: 65+ (1 - PCV) [facility] Start: 2015 Hepatitis B Vaccine (1 of 3 - Risk 3-dose series) Hepatitis B Vaccine (1 of 3 - Risk 3-dose series) [facility] Start: 2015 RSV Vaccine (1 - 1-d ose 60+ series) RSV Vaccine (1 - 1-dose 60+ series) [facility] Start: 09-15-2010 PROSTATE CANCER SCRE ENING DISCUSSION PROSTATE CANCER SCREENING DISCUSSION [facility] Start: 09-15-2005 SHINGRIX VACCINE (1 of 2) HERRERA GRIX VACCINE (1 of 2) [facility] Start: 09-15-2000 COLOGUARD (FIT-DNA) COLOGUARD (FIT-D NA) [facility] Start: 09-15-[address] [facility] Start: 09-15-2000 COLORECTAL CANCER SCREENING COLORECTAL CANCER SCREENING [facility] Start: 09-15-[address] COLONOGRAPHY [facility] Start: 09-15-2000 DIABETES SCREEN DIABETES SCREEN [facility] Start: 09-15-2000 FECAL OCCULT BLOOD FECAL OCCULT BLOO D [facility] Start: 09-15-2000 SIGMOIDOSCOPY SIGMOIDOSCOPY [facility] Start: 09-15-1990 LIPID SCREEN LIPID SCREEN [facility] Start: 09-15-[address] [facility] Start: 09-15-1973 ANNUAL PCP TEAM CONDUIT CLEANER RUTH DISEASE VISIT ANNUAL PCP TEAM CHRONIC DISEASE VISIT [facility] Start: 09-15-1973 Hepatitis B surface antibody level LDL CHOLESTEROL [facility] Start: 09-15-1973 HEPATITIS C SCREENING HEPATITIS C SC REENING [facility] Start: 09-15-1965 3 comp foot exam completed DIABETIC FOOT EXAM [facility] Start: 09-15-1965 Hepatitis B screening URINE ALBUMIN:CREATININE RATIO [facility] Start: 09-15-1965 Hepatitis C antibody , confirmatory test DILATED RETINAL EXAM [facility] Start: 09-15-1961 Pneumococcal Vaccine : 65+ (1 - PCV) Pneumococcal Vaccine: 65+ (1 - PCV) [facility] Start: 09-15-1961 PNEUMOCOCCAL: 65+ (1 - PCV) PNEUMOCOCCAL: 65+ (1 - PCV) [facility] Start: 09-15-1960 Hemoglobin A1c/Hemoglobin.total in Blood HBA1C [facility] Start: 03-18-1956 COVID-19 VACCINE (#1) COVID-19 VACCI NE (#1) [facility] Colonoscopy [facility] MR Lower extremity [facility] End: 09-24-2023 Mri lower extrem oth/thn jt w/o & w/contr matr MRI UPPER LEG WO/W IVCON RT Radiology Routine Mass of right thigh 1 Occurrences starting 08/25/2022 until 09/24/2023 [facility] Work Phone: Comment on above: 1 Occurrences starti ng 08/25/2022 until 09/24/2023 Patient referral [facility] Work Phone: [facility] Payers Date Payer Category Payer Self-pay [id number] 2022 Medicare [id number] 2022 Medicare [employer] [place] [id number] 2022-Present [phone] [address] [place] [address] HMO [id number] Medicare MEDICARE PART A B [id number] Self-pay SELF PAY BY PATIENT REQUEST [id number] Unknown [id number] Unknown [facility] [id number] Unknown [facility] [id number] Unknown [id number] Unknown [id number] Unknown [id number] Unknown [id number] Unknown [id number] Unknown [id number] Unknown [id number] Social History Date Type Detail Facility Start: 07-18-2022 End: 03-31-2023 Tobacco smoking status NHIS Unknown if ever smoked [facility] Start: 03-01-2018 Spouse/ Signif icant Other [facility] Start: 1955 Sex Assigned At Male W [facility] Start: 08-16-2022 End: 03-31-2023 Tobacco smoking status NHIS Never smoked tobacco [facility] Start: 08-16-2022 Tobacco use and exposure Smokeless tobacco non-user [facility] Start: 08-16-2022 End: 08-25-2022 Alcohol intake Lifetime non-drinker (finding) [facility] Start: 1955 Sex Assigned At Not on file C [facility] Start: 08-25-[address] [facility] Start: 08-25-2022 Tobacco use panel [facility] National Score (1-100), lower number is lower risk 70 [facility] Medical Equipment Procedure Code Equipment Code Equipment Origin al Text Equipment Identifier Dates Start: 07-13-2022 Comment on above: TEST BLOOD SUGER FOU R TIMES DAILY as directed. Goals Date Patient Goal Desired Activity /State Mental Status Date Assessment Result Facility 04-04-2023 Cognitive function Voice/Name [facility] Work Phone: Clinical Notes 08-25-2022 to 04-04-2023 Note Date & Type Note Facility 04-04-2023 History and physical note Note Date/Time April 04, 2023 2:22pm [facility] Medical Records Department [address] [place] [address] History & Physical Exam 04/04/23 1421 MR#: [id number] Acct: [id number] Name: LEE ZARATE Rep #:[id number] : 1955 67 From: Marbin Friend DO PCP: [facility] St atus:REG DEC Location: [place] [address] HPI - General General Date of Admission: 04/04/23 Date of Service: 04/04/23 Chief Complaint: Screening colonoscopy HPI Narrative LEE ZARATE, is a 67 M who presents today for screening colonoscopy. He has past medical history of hypertension and. Both with prescription controlled on medicine. He is not have any abdominal pain. He denies any cramping. Denies any chest pain or shortness of breath. This is his first colonoscopy. [facility] Medical History (Updated 03/31/23 @ 10:58 by Kaitlin Lopez) Diabetes mellitus Dietary restriction Hypertension Mass of right thigh Non-smoker Prostate disease Shortness of breath on exertion Home Medications cinnamon bark 500 mg capsule (Cinnamon) 1,000 mg PO DAILY 12/20/22 [History Last Taken Unknown] lisinopril 10 mg tablet 10 mg PO DAILY 12/20/22 [History Last Taken Unknown] metformin 500 mg tablet 500 mg PO BID 12/20/22 [History Last Taken Unknown] multivitamin 1 tab PO DAILY 12/20/22 [History Last Taken Unknown] omega 7-mih-iuo-fish oil 300 mg-1,000 mg capsule (Fish Oil) 1 cap PO DAILY 12/20/22 [History Last Taken 03/31/23] red beet root 250 mg-sour busby extract 0.5 mg chewable tablet 1 tab PO DAILY 12/20/22 [History Last Taken 03/31/23] Allergy/AdvReac Type Severity Reaction Status Date / Time No Known Allergies Allergy Verified 04/04/23 13:00 Family History Mother Diabetes Father Diabetes Social History (Updated 12/20/22 @ 09:48 by Zuleika Menjivar) household members: spouse current occupational status: retired Smoking Status: Never smoker alcohol intake: never substance use type: does not use ROS Review of Systems ROS Unobtainable: other Constitutional Constitutional: Denies fatigue, fever(s), poor appetite, weight gain or weight loss ENT HEENT: Denies mouth lesions Cardiovascular Cardiovascular: Denies abdominal bloating, abdominal edema or abdominal pain Respiratory/Chest Respiratory/Chest: Denies change in mental status, change in phlegm color, chestcongestion or chest tightness Gastrointestinal Gastrointestinal: Denies belching, bloating, change in bowel habits, change in stool character, chewing difficulty, coffee ground emesis, constipation, cramping, diarrhea, dyspepsia, dysphagia, early satiety, excessive flatus, fecalincontinence, heartburn, hematemesis, hematochezia, hemorrhoids, loose stools, melena, nausea, odynophagia, rectal bleeding, tenesmus, vomiting or weight changes Genitourinary Genitourinary: Denies abdominal discomfort, burning urination or itching Musculoskeletal Musculoskeletal: Reports as per HPI; Denies muscle weakness or myalgias Integumentary Integumentary: Denies jaundice Neurologic Neurologic: Denies lack of coordination or weakness Psychiatric Psychiatric: Denies confusion, depression, memory loss, mood swings, paranoia orsuicidal ideation Endocrine Endocrinology: Denies systems reviewed and no addt'l complaints, except as documented Hematologic/Lymphatic Hematologic/Lymphatic: Denies anemia, easy bleeding, easy bruising or lymphadenopathy Allergic/Immunologic Allergic/Immunologic: Denies systems reviewed and no addt'l complaints, except as documented Vital Signs Vital Signs Vital Signs: 04/04/23 13:01 04/04/23 13:01 Temperature 96.9 F L Temperature Source Temporal Pulse Rate 70 Respiratory Rate 16 Respiratory Pattern Normal Blood Pressure 126/88 H Blood Pressure Mean 100 Blood Pressure Source Monitor Blood Pressure Position Semi-Fowlers Blood Pressure Location Left Arm Pulse Ox 99 Oxygen Delivery Method Room Air Weight Weight: 185 lb 3.013 oz Body Mass Index (BMI) 26.5 Physical Exam Const alert General Appearance: cooperative Orientation / Consciousness: oriented to person HEENT hearing grossly normal bilaterally Head and Scalp: normal to inspection Face and Sinus: face symmetric Nose: external nose normal Mouth: oral and palatal mucosa normal Eyes conjunctivae normal General Eye: normal appearance of both eyes Neck full ROM General: normal visual inspection Lymph Lymphatic: no lymphadenopathy noted Chest inspection of chest normal and palpation of chest normal Chest: symmetrical chest wall rise Resp normal respiratory effort Effort and Inspection: able to speak in complete sentences Cardio regular rate GI non-distended Percussion: normal to percussion Rectal Exam: deferred Neuro Speech: speech normal Gait (Neuro): normal gait Results Lab / Micro Data Labs: Laboratory Results - last 24 hr 04/04/23 13:02: POC Glucose 150 H Assessment & Plan Assessment/Plan (1) Encounter for screening for malignant neoplasm of colon: PLAN: He was explained alternatives, risk, benefits including not withstanding blood, infection, sepsis, perforation, need for emergent surgery . He willhave an ASA of 2. 04/04/23 1422 <Electronically signed by Marbin Vazquez DO> Cosigner Signature (if applicable): CC: Marbin Vazquez DO; [facility]~ Signed [facility] Work Phone: 1(351) 258-489509-26-2023 Procedure [facility] 04-04-2023 Procedure [facility]04-20-2023 NoteHNO ID: [id number] Author: Angélica Liao PA-C Service: ? Author Type: Physician Signal Wirer Type: Progress Notes Filed: 10/27/2022 12:20 PM Note Text: Angélica Liao PA-C Hepatobiliary Surgery [address] [facility], [address] [place] [address] SUBJECTIVE Lee Zarate is a 67 year old male here for a post op visit. The patient is s/p excision of right thigh mass. He has no concerns. No pain at the surgery site. No problems with his wound. The ROS, medical, surgical, family, and social history were reviewed by Angélica Liao PA-C OBJECTIVE There were no vitals taken [...] and he is agreeable with the plan. Angélica Liao PA-C 10/27/2022 11:56 [facility] History of Present illness Narrative* Angélica Liao PA-C - 10/27/2022 11:56 AM EDT Images from the original note were not included. Angélica Liao PA-C Hepatobiliary Surgery [address] [facility], [address] [place] [address] SUBJECTIVE Lee Zarate is a 67 year old male here for a post op visit. The patient is s/p excision of right thigh mass. He has no concerns. No pain at the surgery site. No problems with his wound. The ROS, medical, surgical, family, and social history were reviewed by Angélica Liao PA-C OBJECTIVE There were no vitals taken [...] and he is agreeable with the plan. Angélica Liao PA-C 10/27/2022 11:56 AM documented [facility]23 NoteHNO ID: [id number] Author: Zenaida Kincaid APRN.PARKING GARAGE MANAGER Service: Anesthesiology Author Type: Nurse Chief Lending Officer Type: Anesthesia Procedure Notes Filed: 10/13/2022 11:07 AM Note Text: ANESTHESIOLOGY PROCEDURE NOTE Airway General Information Procedure Start Time/Medication Administration: 10/13/2022 10:54 AM Patient location during procedure: OR Timeout Performed Pre-procedure: timeout performed Consent Obtained: Yes Patient identity confirmed: arm band and patient Staffing PARKING GARAGE MANAGER: Zenaida Kincaid APRN.PARKING GARAGE MANAGER Performed by: WILLIAM Indications and Patient Condition [...] attempts at approach: 1 SIGNATURE: Zenaida Kincaid APRN.CRNA PATIENT NAME: Lee Zarate DATE: October 13, 2022 TIME: 11:07 AM CSN: [id number]23 NoteHNO ID: [id number] Author: Bipin Lan MD Service: ? Author Type: Physician Type: Progress Notes Filed: 10/22/2022 4:05 PM Note Text: Bipin Lan M.D. Surgical Oncology [address] [place] [address], [facility] [address] [place] [address] VIRTUAL VISIT PROGRESS NOTE This is a virtual visit using Audio only. It required patient-provider interaction for the medical decision making as documented below. Lee Zarate is a 67 year old male seen [...] 1 tablet by mouth once daily. OMEGA 3-QKL-RKC-FISH OIL ORAL Take 1,000 mg by mouth [...] and independently interpreting results (not separately reported). Bipin Lan, [facility]03-20-2023 History of Present illness Narrative* Bipin Lan MD - 09/26/2022 1:24 PM EDT Images from the original note were not included. Bipin Lan M.D. Surgical Oncology [address] [facility], [address] [place] [address] VIRTUAL VISIT PROGRESS NOTE This is a virtual visit using Audio only. It required patient-provider interaction for the medical decision making as documented below. Lee Zarate is a 67 year old male seen for follow up of a right thigh mass. Patient was last seen in clinic on 08/25/2022. We elected to perform an MRI which patient recently had He presents todayto discuss these results. He reports no significant [...] 1 tablet by mouth once daily. OMEGA 1-YDG-UMK-FISH OIL ORAL Take 1,000 mg by mouth [...] the right thigh musculature. I reviewed his imagingand mass appears to arise within the vastus [...] and independently interpreting results (not separately reported). Bipin Lan MD documented in [facility] encounterSt[facility]-2023 NoteHNO ID: [id number] Author: RT Rene(R) Service: ? Author Type: [...] right SIGNATURE: RT Rene(R) PATIENT NAME: Lee Zarate DATE: September 22, 2022 TIME: 9:28 [facility]03-16-2023 History of Present illness Narrative* Trina Velazquez RT(R) - 09/22/2022 9:20 AM EDT Radiology Service Progress Note DATE OF SERVICE: [...] right SIGNATURE: RT Rene(R) PATIENT NAME: Lee Zarate DATE: September 22, 2022 TIME: 9:28 AM documented in this encounterSt[facility]-2023 NoteHNO ID: [id number] Author: Bipin Lan MD Service: ? Author Type: Physician Type: Progress Notes Filed: 08/25/2022 9:28 AM Note Text: Bipin Lan M.D. Surgical Oncology [address] [facility], [address] [place] [address] SUBJECTIVE HPI Lee Zarate is a 66 year old male presenting [...] family, and social history were reviewed by Bipin Lan MD ALLERGIES No Known Allergies Current [...] 122/78 Pulse 78 Ht 177.8 cm (5' 10) Wt 88.5 kg (195 lb) SpO2 98% [...] and his w (more content not included)... [facility]02-16-2023 History of Present illness Narrative* Bipin Lan MD - 08/25/2022 9:03 AM EST Images from the original note were not included. Bipin Lan M.D. Surgical Oncology [address] [facility], [address] [place] [address] SUBJECTIVE HPI Lee Zarate is a 66 year old male presenting [...] family, and social history were reviewed by Bipin Lan MD ALLERGIES No Known Allergies Current [...] 122/78 Pulse 78 Ht 177.8 cm (5' 10) Wt 88.5 kg (195 lb) SpO2 98% [...] duration of this mass is not totally clearbut it has been present for at least years. Also unclear as to whether or not it is changing in size given the patient has been losing weight intentionally. Advised patient that I am uncertain of theetiology of this mass but I like to perform an MRI to better elucidate patient's relationship to surrounding structures as well as possibly provide some diagnostic information. Patient will follow upwith me after the MRI. Answered all of his and his 's questions. They are agreeable to this plan. I spent a total of 30 minutes on the date of the service which included preparing to see the patient, completing clinical documentation, performing a medically appropriate examination, counseling andeducating the patient/family/caregiver, ordering medications, tests, or procedures, and independently interpreting results (not separately reported). Bipin Lan MD 08/25/2022 9:03 AM [facility] Diagnosis Onset Date Resolution Status Abrasion of great toe, left, infected acute Mass of right thigh [facility] Work Phone: Evaluation note* Diagnosis Hypertension, unspecified type- Primary Mass of right thigh documented in this encounter [facility]* Diagnosis Mass of right thigh- Primary documented in this encounter [facility] note* Diagnosis Mass of right thigh- Primary Mass of right thigh documented in this encounter [facility] note* Diagnosis Mass of right thigh- Primary documented in this encounter [facility] note* Diagnosis Surgery follow-up- Primary Follow-up examination, following unspecified surgery documented in this encounter [facility] noteNo assessment information availableWSelect Medical [facility] [place] Work Phone: Evaluation note* Diagnosis Onset Date Resolution Status Encounter for screening for malignant neoplasm of colo n [facility] Work Phone: Evaluation note* Diagnosis Mass of right thigh documented in this encounter [facility] for referral (narrative)No reason for referral information availableWSelect Medical [facility] [place] Work Phone: Chief Complaint and Reason for Visit Chief Complaint LEFT GREAT TOE PAIN/ TORN TOENAIL MASS RIGHT THIGH Reason for Visit Abrasion of great to e, left, infected Mass of right thigh Chief Complaint LEFT GREAT TOE PAIN/ TORN TOENAIL MASS RIGHT THIGH TYPE 2 DM MASS OF RIGHT THIGH Reason for Visit Abrasion of great to e, left, infected Mass of right thigh Chief Complaint LEFT GREAT TOE PAIN/ TORN TOENAIL MASS RIGHT THIGH TYPE 2 DM MASS OF RIGHT THIGH TYPE 2 DM Reason for Visit Abrasion of great to e, left, infected Mass of right thigh Chief Complaint Amb Documentation NEED ORDER TYPE 2 DM Chief Complaint Amb Documentation NEED ORDER TYPE 2 DM Reason for Visit Encounter for screen ing for malignant neoplasm of colon Chief Complaint TYPE 2 DM PSA- 4 MONTHS Reason for Visit Encounter for screen ing for malignant neoplasm of colon Chief Complaint PSA- 4 MONTHS Reason for Visit Encounter for screen ing for malignant neoplasm of colon Chief Complaint Admit Date AFIB (ZACHARIAH) January 15, 2025 11:17 am Family History No Family History Records Found Relationship Condition Age at Onset Recorded Date/T maria teresa mother Diabetes mellitus Unknown father Diabetes mellitus Unknown Advance Directives No Advanced Directives Records Found Advance Directive Response Recorded Date/ Time Living Will Yes February 28 8:28pm Power of Medical Sales Representative Yes February 28 8:28pm Advance Directive Response Recorded Date/ Time Living Will Yes February 28 9:28pm Power of Medical Sales Representative Yes February 28 9:28pm Advance Directive Response Recorded Date/ Time Living Will No March 31, 2023 10:52am Power of Medical Sales Representative No March 10:52am Advance Directive Response Recorded Date/ Time Living Will No March 31, 2023 9:52am Power of Medical Sales Representative No March 9:52am Reason for Referral Specialty Diagnoses / Procedures Referred By Haleigh johnson Referred To Contact MR IMAGING Diagnoses Mass of right thigh Procedures MRI UPPER LEG WO/W IVCON RT MRI LOWER EXTREM OTH/THN JT W/O & W/CONTR MATR Bipin Lan MD [address] [place] [address] Mr Imaging Referral ID Status Reason Start Date Expiration Date Visits Requested Visits Authorized [id number] Pending Review Auto-Generat ed Referral 08/25/2022 09/24/2023 1 1 Specialty Diagnoses / Procedures Referred By Haleigh johnson Referred To Contact MR IMAGING Diagnoses Mass of right thigh Procedures MRI UPPER LEG WO/W IVCON RT MRI LOWER EXTREM OTH/THN JT W/O & W/CONTR MATR Bipin Lan MD [address] [place] [address] [place] [id number] Referral ID Status Reason Start Date Expiration Date V isits Requested Visits Authorized [id number] Closed Auto-Generate d Referral 09/11/2022 11/10/2022 1 1 Summary Purpose Additional Source Comments Care Teams (unrecognized sec tion and content) Team Status: Active Member Role Status Dates No Primary Care Physician Family Provider Active [facility] Primary Care Provider A ctive Team Status: Inactive Member Role Status Dates No Primary Care Physician Primary Care Provider, Refer ring Provider Active Heriberto HOFFMAN, PA Attending Provider Active Team Status: Inactive Member Role Status Dates [facility] Primary Care Provider, Referring Provider Active Dr. Bipin Lu MD Attending Provider Active Team Status: Inactive Member Role Status Dates [facility] Primary C are Provider, Attending Provider, Referring Provider Active Brittany Manning GROUND INSTRUCTOR BASIC, GROUND INSTRUCTOR BASIC-C Other Provider Active Team Status: Inactive Member Role Status Dates [facility] Primary Care Provider A ctive Brittany Manning GROUND INSTRUCTOR BASIC, GROUND INSTRUCTOR BASIC-C Attending Provider, Referrin g Provider Active Team Status: Active Member Role Status Dates [facility] Primary Care Provider A ctive Dr. Bipin Lu MD Attending Provider, Referr ing Provider Active Team Status: Inactive Member Role Status Dates [facility] Primary Care Provider A ctive Dr. Bipin Lu MD Attending Provider, Referr ing Provider Active Supervisor Forming Department Relationship Specialty Start Date End Date Bipin Lan MD [address] [place] [address] Consulting General Surgery 08/25/22 Supervisor Forming Department Relationship Specialty Start Date End Date Brittany Manning NP [address] [place] [address] PCP - General Family Medicine 09/27/22 Bipin Lan MD [address] [place], [place] [id number] Consulting General Surgery 08/25/22 Supervisor Forming Department Relationship Specialty Start Date End Date Bipin Lan MD [address] [place], [place] [id number] Consulting General Surgery 08/25/22 Supervisor Forming Department Relationship Specialty Start Date End Date Brittany Manning, MADELYN [address] [place], [place] [address] PCP - General Family Medicine 09/27/22 Bipin Lan MD [address] [place], [place] [id number] Consulting General Surgery 08/25/22 Team Status: Active Member Role Status Dates [facility] Primary Care Provider A ctive Zuleika Menjivar Attending Provider Active Team Status: Inactive Member Role Status Dates [facility] Primary Care Provider A ctive Dr. Good Ness MD Attending Provider, Referr ing Provider Active Team Status: Inactive Member Role Status Dates [facility] Primary Care Provider A ctive Dr. Vinayak Castillo , DPM Attending Provider, Referring Provider Active Team Status: Active Member Role Status Dates [facility] Primary Care Provider, Referring Provider Active Dr. Marbin Vazquez DO Attending Provider, Other Prov ider Active Team Status: Inactive Member Role Status Dates [facility] Primary Care Provider, Referring Provider Active Dr. Marbin Vazquez DO Attending Provider Active Supervisor Forming Department Relationship Specialty Start Date End Date Bipin Lan MD [address] [place], [place] [id number] Consulting General Surgery 08/25/22 Team Status: Inactive Member Role Status Dates [facility] Primary Care Provider A ctive Zulema Cook Attending Provider, Referring Provide r Active Team Status: Active Member Role Status Dates No Primary Care Physician Family Provider Active Brittany Manning VSZaheer, GROUND INSTRUCTOR BASIC-C Primary Care Provider Activ e Team Status: Inactive Member Role Status Dates Brittany BELLAMY, GROUND INSTRUCTOR BASIC-C Primary Care Provider Activ e Start: October 29, 2024 End: October 29, 2024 Zebulun Beam VSC, GROUND INSTRUCTOR BASIC-C Attending Provider Active Start: October 29, 2024 End: October 29, 2024 Team Status: Inactive Member Role Status Dates Brittany Manning VSC, GROUND INSTRUCTOR BASIC-C Primary Care Provider Activ e Start: November 25, 2024 End: November 25, 2024 Dr. Good Ness MD Attending Provider Active Start: November 25, 2024 End: November 25, 2024 Dr. Good Ness MD Referring Provider Active Start: November 25, 2024 End: November 25, 2024 Team Status: Inactive Member Role Status Dates Brittany Manning VSC, GROUND INSTRUCTOR BASIC-C Primary Care Provider Activ e Start: December 12, 2024 End: December 12, 2024 Zebulun Beam VSC, GROUND INSTRUCTOR BASIC-C Attending Provider Active Start: December 12, 2024 End: December 12, 2024 Team Status: Active Member Role/Relationship Status Dates No Primary Care Physician Family Provider Active Brittany Manning VSC, GROUND INSTRUCTOR BASIC-C Primary Care Provider Activ e Team Status: Inactive Member Role/Relationship Status Dates Brittany Manning VSC, GROUND INSTRUCTOR BASIC-C Primary Care Provider Activ e Start: October 29, 2024 End: October 29, 2024 Zebulun Beam VSC, GROUND INSTRUCTOR BASIC-C Attending Provider Active Start: October 29, 2024 End: October 29, 2024 Team Status: Inactive Member Role/Relationship Status Dates Brittany Manning VSC, GROUND INSTRUCTOR BASIC-C Primary Care Provider Activ e Start: November 25, 2024 End: November 25, 2024 Dr. Good Ness MD Attending Provider Active Start: November 25, 2024 End: November 25, 2024 Dr. Good Ness MD Referring Provider Active Start: November 25, 2024 End: November 25, 2024 Team Status: Inactive Member Role/Relationship Status Dates Brittany Zachariah VSC, GROUND INSTRUCTOR BASIC-C Primary Care Provider Activ e Start: December 12, 2024 End: December 12, 2024 Zebulun Beam VSC, GROUND INSTRUCTOR BASIC-C Attending Provider Active Start: December 12, 2024 End: December 12, 2024 Team Status: Inactive Member Role/Relationship Status Dates Brittany Zachariah VSC, GROUND INSTRUCTOR BASIC-C Primary Care Provider Activ e Start: January 15, 2025 End: January 15, 2025 Brittany Manning VSZaheer, GROUND INSTRUCTOR BASIC-C Referring Provider Active Start: January 15, 2025 End: January 15, 2025 Dr. Bentley Tejada MD Attending Provider Active S tart: January 15, 2025 End: January 15, 2025 Goals (unrecognized section and content) Goals may be documented in a n alternate sectionGoals may be documented in an alternate sectionGoals may be documented in an alternate sectionGoals may be documented in an alternate sectionGoals may be documented in an alternate sectionGoals may be documented in an alternate sectionGoals may be documented in an alternate sectionGoals may be documented in an alternate section Source Comments (unrecognize d section and content) In the event this informatio n is protected by the Federal Confidentiality of Alcohol and Drug Abuse Patient Records regulations: The Federal rules restrict any use of the information to criminally investigate or prosecute any alcohol or drug abuse patient.[facility] the event this information is protected by the Federal Confidentiality of Alcohol and Drug Abuse Patient Records regulations: The Federal rules restrict any use of the information to criminally investigate or prosecute any alcohol or drug abuse patient.[facility] HospitalIn the event this information is protected by the Federal Confidentiality of Alcohol and Drug Abuse Patient Records regulations: The Federal rules restrict any use of the information to criminally investigate or prosecute any alcohol or drug abuse patient.[facility] HospitalIn the event this information is protected by the Federal Confidentiality of Alcohol and Drug Abuse Patient Records regulations: The Federal rules restrict any use of the information to criminally investigate or prosecute any alcohol or drug abuse patient.[facility] HospitalIn the event this information is protected by the Federal Confidentiality of Alcohol and Drug Abuse Patient Records regulations: The Federal rules restrict any use of the information to criminally investigate or prosecute any alcohol or drug abuse patient.[facility] the event this information is protected by the Federal Confidentiality of Alcohol and Drug Abuse Patient Records regulations: The Federal rules restrict any use of the information to criminally investigate or prosecute any alcohol or drug abuse patient.[facility] Reason for Visit (unrecogniz ed section and content) Reason Comments Results Reason Comments Post Op S/P Excision of thig h mass Specialty Diagnoses / Procedures Referred By Contac t Referred To Contact MR IMAGING Diagnoses Mass of right thigh Procedures MRI UPPER LEG WO/W IVCON RT MRI LOWER EXTREM OTH/THN JT W/O & W/CONTR MATR Bipin Lan MD [address] [place] [address] [place] [id number] Referral ID Status Reason Start Date Expiration Date V isits Requested Visits Authorized [id number] Closed Auto-Generate d Referral 09/11/2022 11/10/2022 1 1 (unrecognized sect ion and content) No Status Records FoundNo Status Records FoundNo Status Records Found INFORMATION SOURCE (unrecogn ized section and content) DATE CREATED AUTHOR 10/27/2022 [facility] DATE CREATED AUTHOR AUTHOR'S ORGANIZ ATION 07/26/2023 [facility] DATE CREATED AUTHOR AUTHOR'S ORGANIZ ATION 02/04/2025 [facility] FOR RECORDS PERTAINING TO PATIENTS WHO ARE [...] BE BASED ON THE PRIMARY CLINICAL RECORDS. [employer] provides no warranty or guarantee of the accuracy or completeness of information in this document.
--- NOTE | 2025-02-12 18:55 | STRESSREP ---
Stress Test Report Exercise myocardial perfusion stress test. 69-year-old man with a history of atrial fibrillation Stress protocol: Resting EKG demonstrates sinus rhythm with a rate of 63 bpm resting blood pressure is 142/82 mmHg. The patient exercised according to the regular [place] protocol for a total duration of 7 minutes attaining a maximum heart rate of 155 bpm which was 102% of maximum predicted heart rate; the maximum workload was 10.1 metabolic equivalents. At rest there were no ST or T wave changes noted to suggest ischemia and at peak exercise upsloping ST changes only were noted which did not meet the criteria for ischemia. No clinical angina was noted the test was terminated due to the target heart rate being achieved/fatigue. The peak blood pressure was 200/88 mmHg. Rate-pressure product was 26,700. Myocardial perfusion protocol. 12.0 mCi of technetium 99m sestamibi was injected at rest. The patient exercised according to regular [facility] protocol for total duration of 7 minutes and at peak exercise 36 mCi of technetium 99m sestamibi was injected stress images were obtained stress and rest images were reconstructed in comparing the short axis vertical long and horizontal long axis. Gated images were also obtained. Perfusion SPECT analysis: Review of the stress images demonstrate normal uptake of tracer noted in all areas of the myocardium. The resting images similarly demonstrate normal uptake of tracer noted in all areas of the myocardium. No areas of reversibility are noted to suggest ischemia no previous infarct was noted. Gated SPECT analysis: The gated ejection fraction is 66%. Conclusion: Normal exercise myocardial perfusion stress test at a high workload Preserved ejection fraction.
== END | disposition home or self-care (01) ==
LOC: CVS 06:54
PROVIDERS: PCP Nurse Practitioner Family; Referring Provider Internal Medicine Cardiovascular Disease; Visit Provider Internal Medicine Cardiovascular Disease
DX: I10 Essential (primary) hypertension (principal); I48.91 Unspecified atrial fibrillation; R06.02 Shortness of breath
CPT/HCPCS: 78452; 93017; 93306; A9500; A4216

== ENCOUNTER → 2025-05-06 | Outpatient (CLI) | payer MEDICARE, SELFPAY ==
[2025-05-06 16:36] LABS: Hematocrit 39.3 % (40-54); Hemoglobin 12.9 g/dL (13.0-16.5); Immature Granulocytes Count 0.010 X10^3/uL (0.0-0.0); Mean Corp Hgb Conc 32.8 g/dL (32-36); Mean Corpuscular Volume 95.6 fL (80-94); Mean Platelet Vol. 10.7 fl (6.2-12.0); NRBC Flagged by Analyzer 0 % (0-5); Platelet Count 260 K/mm3 (150-450); RBC Distribution Width CV 13.1 % (11.6-14.6); RBC Distribution Width SD 45.5 fl (35.1-43.9); Red Blood Count 4.11 M/mm3 (4.6-6.2); White Blood Count 8.4 K/mm3 (4.4-11.0)
[2025-05-06 17:12] LABS: AST(SGOT) 46 U/L (<=37); Alanine Aminotransfer ALT/SGPT 19 U/L (<=46); Albumin, Serum 4.3 g/dL (3.4-4.8); Alkaline Phosphatase 57 U/L (40-129); Anion Gap 11 (5-15); BUN 29 mg/dL (4-19); BUN/Creat Ratio 24.0 RATIO (10-20); Calcium,Total 9.6 mg/dL (7.6-11.0); Carbon Dioxide 24.6 mmol/L (21.0-32.0); Chloride 105 mmol/L (98-108); Cholesterol 164 mg/dL (<=200); Globulin 3.0 g/dL (2.2-4.2); Glucose 107 mg/dL (70-99); Low Density Lipoprotein Calc. 99 mg/dL; Potassium 4.8 mmol/L (3.3-5.1); Triglycerides 204 mg/dL; Very Low Density Lipoprotein 41 mg/dL (5-40); cholesterol:hdl ratio screen 5.47
[2025-05-06 17:17] LABS: Microalbumin,Random Urine < 12.0 mg/L (<20 mg/L)
[2025-05-07 14:57] LABS: Vitamin B12 1317 pg/mL (180-914)
== END | disposition home or self-care (01) ==
LOC: VSLAB 11:17
PROVIDERS: PCP Nurse Practitioner Family; Visit Provider Nurse Practitioner Family
DX: E11.9 Type 2 diabetes mellitus without complications (principal); I10 Essential (primary) hypertension; Z13.220 Encounter for screening for lipoid disorders; D64.9 Anemia, unspecified
CPT/HCPCS: 36415; 80053; 80061; 82043; 82607; 84443; 85025

== ENCOUNTER → 2025-05-27 | Outpatient (CLI) | payer MEDICARE, SELFPAY ==
[2025-05-27 11:22] LABS: PSA,Total- Diagnostic 9.99 ng/mL (0.00-4.00)
== END | disposition home or self-care (01) ==
LOC: LAB 10:25
PROVIDERS: PCP Nurse Practitioner Family; Referring Provider Urology; Visit Provider Urology
DX: C61 Malignant neoplasm of prostate (principal)
CPT/HCPCS: 36415; 84153